=== PATIENT | female | born 1930 | race Caucasian/White ===

== ENCOUNTER 2016-11-22 11:17 | Emergency (ER) | payer BC ==
[~2016-11-22] VITALS: Ht 157.5 cm; Wt 57.7 kg
[~2016-11-22 11:17] MED LIST: ALLO100T PO; AMIO200T PO; AMLO10TA2 PO; APIX2.5T PO; ASPI81TA11 PO; CARV6.252 PO; COLC1TAB15 PO; ENAL20TA PO; HYDR-3133 PO; IBUP400T20 PO; ISOS30TA3 PO; LEVO25TA4 PO; OXYC-433 PO; PRAV80TA2 PO
[2016-11-22 11:24] VITALS: BP 118/70; PULSE 67; RESP 16; TEMP 97.8; O2SAT 96
--- NOTE | 2016-11-22 12:05 | PD ---
HPI Chief Complaint: GI Complaint Time Seen by Provider: 11:30 Travel History International Travel<30 days: No Contact w/Intl Traveler<30days: No Traveled to known affect area: No History of Present Illness HPI This patient is brought in by her daughter. She has diarrhea for 48 hours. It started a day after she started taking colchicine for gout flare. No vomiting but does have some nausea on occasion. Denies fever or abdominal pain. No ill contacts. Symptoms severity is moderate. No alleviating factors PFSH Past Medical History Hx Anticoagulant Therapy: Yes (ELIQUIS AND BABY ASA) Arthritis: Yes (Bilateral hands ) Asthma: No Autoimmune Disease: No Anxiety: No Depression: No Heart Rhythm Problems: No Cancer: No Cardiovascular Problems: Yes (ND, HTN, CHO) High Cholesterol: Yes Chest Pain: Yes Congestive Heart Failure: No Cerebrovascular Accident: No Diabetes: No Diminished Hearing: Yes (LEFT HEARING AIDE) Endocrine: Yes Gastrointestinal Disorders: Yes GERD: No Genitourinary: No Headaches: Yes Hiatal Hernia: No Hypertension: Yes Immune Disorder: No Implanted Vascular Access Dvce: Yes Musculoskeletal: Yes Neurologic: Yes Psychiatric: No Reproductive: No Respiratory: Yes Migraines: No Seizures: No Sleep Apnea: No Thyroid Disease: Yes Ulcer: No ?: Not Menopausal: Yes Past Surgical History Abdominal Surgery: Yes (POLYPS REMOVED) AICD: No Appendectomy: Yes Cardiac Surgery: Yes (ABLASION) Cholecystectomy: Yes Hysterectomy: Yes Insulin Pump: No Joint Replacement: No Oral Surgery: Yes (dental implants ) Pacemaker: No Thoracic Surgery: No Other Surgery: Yes (BACK SURGERY 2003) Social History Alcohol Use: Yes (WINE OCCAS.) Tobacco Use: No Substance Use: No Allergies-Medications (Allergen,Severity, Reaction): Coded Allergies: Horse Serum Proteins (Verified Allergy, Severe, HIVES, 11/22/16) Reported Meds & Prescriptions Reported Meds & Active Scripts Active Ibuprofen 400 Mg Tab 400 Mg PO Q8H PRN Reported Isosorbide Mononitrate ER (Isosorbide Mononitrate) 30 Mg Dio 30 Mg PO DAILY Oxycodone-Acetaminophen 10-325 mg Tab 1 Tab PO Q6H PRN Colchicine 0.6 Mg Tab 0.6 Mg PO DIRECTED Eliquis (Apixaban) 2.5 Mg Tab 2.5 Mg PO BID Pravastatin 80 Mg Tab 80 Mg PO DAILY Levothyroxine (Levothyroxine Sodium) 25 Mcg Tab 25 Mcg PO DAILY Hydroxyzine HCl 25 Mg Tab 25 Mg PO Q4HR Enalapril (Enalapril Maleate) 20 Mg Tab 20 Mg PO BID Carvedilol 6.25 Mg Tab 6.25 Mg PO BID Aspirin EC (Aspirin) 81 Mg Tabdr 81 Mg PO DAILY Amlodipine (Amlodipine Besylate) 10 Mg Tab 10 Mg PO DAILY Amiodarone (Amiodarone HCl) 200 Mg Tab 200 Mg PO DAILY Allopurinol 100 Mg Tab 100 Mg PO BID Review of Systems General / Constitutional: No: Fever Eyes: No: Visual changes HENT: No: Headaches Cardiovascular: No: Chest Pain or Discomfort Respiratory: No: Shortness of Breath Gastrointestinal: Positive: Nausea, Diarrhea, No: Abdominal Pain Genitourinary: No: Dysuria Musculoskeletal: Positive: Pain Skin: No Rash Neurologic: No: Weakness Psychiatric: No: Depression Endocrine: No: Polydipsia Hematologic/Lymphatic: No: Easy Bruising Physical Exam Narrative GENERAL: Well-nourished, well-developed patient in no apparent distress. SKIN: Warm and dry. HEAD: Atraumatic. Normocephalic. EYES: Pupils equal and round. No scleral icterus. No injection or drainage. ENT: No nasal bleeding or discharge. Mucous membranes pink and moist. NECK: Trachea midline. No JVD. CARDIOVASCULAR: Regular rate and rhythm. No murmur appreciated. RESPIRATORY: No accessory muscle use. Clear to auscultation. Breath sounds equal bilaterally. GASTROINTESTINAL: Abdomen soft, non-tender, nondistended. Hepatic and splenic margins not palpable. MUSCULOSKELETAL: No obvious deformities. No clubbing. No cyanosis. No edema. Has some inflammation of the left MTP joint NEUROLOGICAL: Awake and alert. No obvious cranial nerve deficits. Motor grossly within normal limits. Normal speech. PSYCHIATRIC: Appropriate mood and affect; insight and judgment normal. Data Data Last Documented VS Vital Signs Date Time Temp Pulse Resp B/P Pulse Ox O2 Delivery O2 Flow Rate FiO2 11/22/16 11:24 97.8 67 16 118/70 96 MDM Medical Decision Making Medical Screen Exam Complete: Yes Emergency Medical Condition: Yes Medical Record Reviewed: Yes Differential Diagnosis Medication side effect, gastroenteritis, food poisoning Narrative Course I have reviewed the patient's electronic medical record. Seems fairly suspicious that soon after starting colchicine she has developed diarrhea which is a well-known and common side effect of that medication She stopped taking it last night Her abdomen is soft and benign and nontender and she has normal vital signs and appears euvolemic on exam I don't think studies would be helpful here Discussed options with patient and daughter at bedside Other causes such as gastroenteritis and food poisoning should resolve spontaneously I gave her medication for nausea She has follow-up with her primary care physician in 3 days set up The diarrhea persists until that time he should discuss further workup with the physician but I suspect it will most likely resolve spontaneously Diagnosis Primary Impression: Diarrhea due to drug Additional Impression: Nausea Patient Instructions: General Instructions Departure Forms: Tests/Procedures Additional Instructions: The patient was advised to follow up with their physician and return if they worsen. Med/Other Pt SpecificInfo: Prescription(s) given Disposition: 01 DISCHARGE HOME Condition: Stable Gamaliel Whittaker MD Nov 22, 2016 12:05
[2016-11-22] MEDS ORDERED: ZOFR4TAB3 SL (12:09)
== END 2016-11-22 12:15 | disposition home or self-care (01) ==
LOC: PHED 11:17
DX: K52.1 Toxic gastroenteritis and colitis (principal); T50.4X5A Adverse effect of drugs affecting uric acid metabolism, initial encounter; M10.9 Gout, unspecified; I25.2 Old myocardial infarction; I10 Essential (primary) hypertension; E07.9 Disorder of thyroid, unspecified; Z79.01 Long term (current) use of anticoagulants
CPT/HCPCS: 99283

== ENCOUNTER 2017-08-20 10:47 | Observation (INO) | payer OTHER, BC ==
[~2017-08-20] VITALS: Ht 157.5 cm; Wt 62.0 kg
[~2017-08-20 10:47] MED LIST changes: -ASPI81TA11 PO; +ASPI81TA23 PO; +IBUP1TAB5 PO; -IBUP400T20 PO; +ZOFR4TAB3 SL
[2017-08-20 10:56] VITALS: BP 172/81; PULSE 55; RESP 16; TEMP 98; O2SAT 95
[2017-08-20] MEDS ORDERED: NITR0.4S SL (11:15)
[2017-08-20] MEDS ORDERED: HYDR12.57 PO (11:15)
[2017-08-20] MEDS ORDERED: AMLO5TAB2 PO (11:15)
[2017-08-20] MEDS ORDERED: LEVO50TA4 PO (11:15)
[2017-08-20] MEDS ORDERED: SODIUM CHLORIDE 0.9% FLUSH 10 ML FLUSH IVF PRN (11:30)
[2017-08-20 11:40] VITALS: RESP 16; O2SAT 98
[2017-08-20 11:40] LABS: AUTOMATED NEUTROPHIL # 11.6 TH/MM3 (1.8-7.7); BASOPHIL # 0.2 TH/MM3 (0-0.2); BASOPHIL % 1.4 % (0.0-2.0); EOSINOPHIL # 0.7 TH/MM3 (0-0.4); EOSINOPHIL % 4.4 % (0.0-4.0); HEMO FLAGS DIFF FINAL; LYMPH % 10.4 % (9.0-44.0); LYMPHOCYTE # 1.6 TH/MM3 (1.0-4.8); MEAN CELL VOLUME 90.5 FL (80.0-100.0); MEAN CORPUSCULAR HEMOGLOBIN 29.9 PG (27.0-34.0); MONO % 7.6 % (0.0-8.0); NEUT % 76.2 % (16.0-70.0); PLATELET COUNT 563 TH/MM3 (150-450); RED BLOOD COUNT 4.31 MIL/MM3 (4.00-5.30); RED CELL DISTRIBUTION WIDTH 16.4 % (11.6-17.2); WHITE BLOOD COUNT 15.2 TH/MM3 (4.0-11.0)
[2017-08-20 11:47] LABS: INTERNATIONAL NORMALIZED RATIO 1.1 RATIO
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
[2017-08-20 11:58] LABS: CREATINE KINASE 257 U/L (26-192)
[2017-08-20 12:10] LABS: CKMB 3.4 NG/ML (0.5-3.6)
[2017-08-20 12:11] LABS: ANION GAP 10 MEQ/L (5-15); BICARBONATE 23.6 MEQ/L (21.0-32.0); BLOOD UREA NITROGEN 24 MG/DL (7-18); CHLORIDE 102 MEQ/L (98-107); GLOMERULAR FILTRATION RATE 53 ML/MIN (>89); POTASSIUM 4.5 MEQ/L (3.5-5.1); SODIUM (NA) 136 MEQ/L (136-145)
[2017-08-20 12:58] LABS: BLOOD, URINE NEG (NEG); COMMENT (UR) CATH-CULT NOT IND; CULTURE IF INDICATED CATH CULTURE NOT IND; GLUCOSE,URINE NEG (NEG); KETONE, URINE NEG (NEG); MUCUS URINE FEW /lpf (OCC); NITRITE,URINE NEG (NEG); SQUAMOUS EPITHELIAL CELL URINE <1 /hpf (0-5); URINE COLOR LIGHT-YELLOW (YELLW/STRAW)
[2017-08-20 13:18] VITALS: BP 156/72; PULSE 59; RESP 15; O2SAT 98
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
[2017-08-20] MEDS ORDERED: GADODIAMIDE PF 287 MG/ML 20 ML VIAL (for RAD MRI) IVCONTRAST ONE (13:45)
[2017-08-20] MEDS ORDERED: SODIUM CHLORIDE 0.9% FLUSH 10 ML FLUSH IV FLUSH PRN (14:00)
[2017-08-20 15:00] VITALS: PULSE 63
[2017-08-20 15:52] VITALS: BP 151/69; PULSE 64; RESP 20; TEMP 98.1; O2SAT 92
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
[2017-08-20] MEDS ORDERED: ONDANSETRON ODT 4 MG TAB SL PRN ×2 (17:15→17:45)
[2017-08-20 19:57] VITALS: BP 140/64; PULSE 64; RESP 20; TEMP 98; O2SAT 95
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
[2017-08-20] MEDS: CARVEDILOL 6.25 MG TAB PO SCH (20:49)
[2017-08-20] MEDS: ALLOPURINOL 100 MG TAB PO SCH (20:49)
[2017-08-20] MEDS: SODIUM CHLORIDE 0.9% FLUSH 10 ML FLUSH IV FLUSH SCH (20:49)
[2017-08-20] MEDS: ENALAPRIL MALEATE 10 MG TAB PO SCH (20:49)
[2017-08-20] MEDS: APIXABAN 2.5 MG TABLET PO SCH (20:49)
[2017-08-20 20:57] LABS: FREE T4 1.23 NG/DL (0.76-1.46)
[2017-08-21] VITALS (9 sets, daily range): BP systolic 119–152; BP diastolic 58–75; PULSE 53–82; RESP 17–20; TEMP 97.9–98.1; O2SAT 60–96
[2017-08-21] MEDS: LEVOTHYROXINE SODIUM 50 MCG TAB PO SCH (04:56)
--- NOTE | 2017-08-21 08:04 | HHI.PR ---
Subjective Remarks sr 1deg hb Objective Vital Signs Date Time Temp Pulse Resp B/P (MAP) Pulse Ox O2 Delivery O2 Flow Rate FiO2 08/21/17 04:00 98.1 63 20 145/63 (90) 94 08/20/17 19:57 98.0 64 20 140/64 (89) 95 08/20/17 15:52 98.1 64 20 151/69 (96) 92 08/20/17 15:00 63 08/20/17 13:18 59 15 156/72 (100) 98 Room Air 08/20/17 11:40 16 98 Room Air 08/20/17 11:03 94 Room Air 08/20/17 10:56 98.0 55 16 172/81 (111) 95 Result Diagram: 08/20/17 1121 08/20/17 1121 Objective Remarks awake alert no new c/o no new spells vff face sym 5/5 Assessment and Plan Assessment and Plan imp likley non neurological if eeg done and mri/a neg and standing bp ok and cards clears could dc later today i will fu eeg result William Timmons MD Aug 21, 2017 08:04
--- NOTE | 2017-08-21 08:15 | HHI.PR ---
Subjective Remarks Alert and oriented no further episodes of dizziness or syncope Objective Vital Signs Date Time Temp Pulse Resp B/P (MAP) Pulse Ox O2 Delivery O2 Flow Rate FiO2 08/21/17 04:00 98.1 63 20 145/63 (90) 94 08/20/17 19:57 98.0 64 20 140/64 (89) 95 08/20/17 15:52 98.1 64 20 151/69 (96) 92 08/20/17 15:00 63 08/20/17 13:18 59 15 156/72 (100) 98 Room Air 08/20/17 11:40 16 98 Room Air 08/20/17 11:03 94 Room Air 08/20/17 10:56 98.0 55 16 172/81 (111) 95 Result Diagram: 08/20/17 1121 08/20/17 1121 Imaging Last [address] 08/20/17 111 Signed Impressions: Service Date/Time: July 12:50 - CONCLUSION: 1. No acute disease. 2. Atrophy and chronic small vessel ischemic change. James Garcia Jr., MD Chest X-Ray 08/20/17 1117 Signed Impressions: Service Date/Time: July 11:25 - CONCLUSION: No acute disease. James Garcia Jr., MD Objective Remarks GENERAL: Alert and cooperative SKIN: Warm and dry. HEAD: Normocephalic. EYES: No scleral icterus. No injection or drainage. NECK: Supple, trachea midline. No JVD or lymphadenopathy. CARDIOVASCULAR: Regular rate and rhythm without murmurs, gallops, or rubs. RESPIRATORY: Breath sounds equal bilaterally. No accessory muscle use. GASTROINTESTINAL: Abdomen soft, non-tender, nondistended. MUSCULOSKELETAL: No cyanosis, or edema. BACK: Nontender without obvious deformity. No CVA tenderness. Medications and IVs Current Medications Medications (Trade) Dose Ordered Sig/Kalpana Route Start Time Stop Time Status Last Admin (NS Flush) 2 ml UNSCH PRN IV FLUSH 08/20/17 14:00 (NS Flush) 2 ml BID IV FLUSH 08/20/17 21:00 08/20/17 20:49 (Zyloprim) 100 mg BID PO 08/20/17 21:00 08/20/17 20:49 (Cordarone) 200 mg DAILY PO 08/21/17 09:00 (Norvasc) 5 mg DAILY PO 08/21/17 09:00 (Eliquis) 2.5 mg BID PO 08/20/17 21:00 08/20/17 20:49 (Ecotrin Ec) 81 mg DAILY PO 08/21/17 09:00 (Coreg) 6.25 mg BID PO 08/20/17 21:00 08/20/17 20:49 (Vasotec) 20 mg BID PO 08/20/17 21:00 08/20/17 20:49 (Microzide) 12.5 mg DAILY PO 08/21/17 09:00 (Imdur) 30 mg DAILY PO 08/21/17 09:00 (Synthroid) 50 mcg DAILY@0600 PO 08/21/17 06:00 08/21/17 04:56 (Zofran Odt) 4 mg Q6HR PRN SL 08/20/17 17:45 (Pravachol) 80 mg DAILY PO 08/21/17 09:00 Assessment and Plan Problem List: (1) Syncope ICD Codes: R55 - Syncope and collapse Status: Acute (2) Hypertension ICD Codes: I10 - Essential (primary) hypertension Status: Acute (3) A-fib ICD Codes: I48.91 - Unspecified atrial fibrillation Status: Acute (4) Hypothyroid ICD Codes: E03.9 - Hypothyroidism, unspecified Status: Acute (5) Leukocytosis ICD Codes: D72.829 - Elevated white blood cell count, unspecified Status: Acute (6) Hyperlipidemia ICD Codes: E78.5 - Hyperlipidemia, unspecified Status: Acute Assessment and Plan 08/21/17\ Syncope: no further episodes of syncope noted. Telemetry on. Cardilolgy and neurology consulted. MRI and EEG per neurology. HTN: Home medication resumed. 145/63 HLD: continue statin Hypothyroidism: Increased levothyroxine replacement. TSH is elevated at 5.38 Leukocytosis: Labs are pending this morning. Yesterday 15.2. AFIB; Continue eliquis and amiodarone. Rate controlled. I and the EXCELLENCE COACH have both examined this patient and reviewed this note and I agree with these findings and plan of care. Darron Muller DO Discussed Condition With Nursing Discharge Planning Home with [facility] Problem Qualifiers (1) Syncope: Qualified Codes: R55 - Syncope and collapse (2) A-fib: Qualified Codes: I48.2 - Chronic atrial fibrillation Jaimie Vargas Aug 21, 2017 08:15
[2017-08-21] MEDS ORDERED: ISOSORBIDE MONONITRATE 30 MG TAB PO SCH (09:00)
[2017-08-21] MEDS ORDERED: LEVOTHYROXINE SODIUM 50 MCG TAB PO SCH (09:00)
[2017-08-21] MEDS ORDERED: HYDROCHLOROTHIAZIDE 12.5 MG CAP PO SCH ×2 (09:00)
[2017-08-21] MEDS: ISOSORBIDE MONONITRATE 30 MG TAB PO SCH (09:00)
[2017-08-21] MEDS ORDERED: PRAVASTATIN SOD 80 MG TAB PO SCH (09:00)
[2017-08-21] MEDS: SODIUM CHLORIDE 0.9% FLUSH 10 ML FLUSH IV FLUSH SCH ×2 (09:00→21:00)
[2017-08-21] MEDS: CARVEDILOL 6.25 MG TAB PO SCH (09:00)
[2017-08-21] MEDS: AMIODARONE 200 MG TAB PO SCH (09:38)
[2017-08-21] MEDS: ALLOPURINOL 100 MG TAB PO SCH ×2 (09:38→21:20)
[2017-08-21] MEDS: PRAVASTATIN SOD 80 MG TAB PO SCH (09:38)
[2017-08-21] MEDS: APIXABAN 2.5 MG TABLET PO SCH ×2 (09:41→21:19)
[2017-08-21] MEDS: ASPIRIN EC 81 MG TABEC PO SCH (09:41)
[2017-08-21] MEDS: amLODIPine BESYLATE 5 MG TAB PO SCH (09:42)
[2017-08-21] MEDS: ENALAPRIL MALEATE 10 MG TAB PO SCH ×2 (09:44→21:20)
--- NOTE | 2017-08-21 09:47 | RADRPT ---
EXAM DATE/TIME: 08/21/2017 08:48 [facility] COMPARISON: No previous studies available for comparison. INDICATIONS : Syncope CONTRAST: 20 cc Omniscan (gadodiamide) IV MEDICAL HISTORY : Hypertension. Cardiovascular disease Hypercholesterolemia. SURGICAL HISTORY : Orthopaedic. ENCOUNTER: Initial ACUITY: 1 day PAIN SCORE: 0/10 LOCATION: neck Percent stenosis is calculated using the diameter of the stenotic region over the diameter of the nor mal distal internal carotid artery. TECHNIQUE: Bolus infused MRA of the extracranial circulation was performed using a neurovascular coil. Post pro cessing was performed including rotating subvolume maximum intensity projections of each carotid bryan ry, rotating full volume maximum intensity projections of both carotid arteries, sagittal and coronal sliding thin slab reformations of each carotid artery, and left oblique sliding thin slab reformatio n through the aortic arch to include the origin of the arch branch vessels. FINDINGS: AORTIC ARCH: There is a three vessel origin of the great vessels from the aorta. No evidence of ostial narrowing. RIGHT CAROTID: There is eccentric stenosis involving the origin of the right internal carotid artery with 50-60% misty notic narrowing associated. Beyond this proximal disease, the ICA regains normal caliber and appearan ce it is widely patent to the skull base. LEFT CAROTID: The common carotid artery is intact. The carotid bulb has a normal configuration without ulceration or narrowing. The internal carotid artery lumen is smooth without stenosis. The external carotid ar denae is intact. VERTEBRALS: The vertebral arteries have a symmetric diameter. No stenotic lesions are seen. CONCLUSION: 50-60% right carotid bifurcation stenosis. Scot Brown MD on August 21, 2017 at 9:40 Board Certified Radiologist. This report was verified electronically.
--- NOTE | 2017-08-21 09:55 | RADRPT ---
EXAM DATE/TIME: 08/21/2017 08:48 [facility] COMPARISON: CT BRAIN W/O CONTRAST, August 20, 2017, 12:50. INDICATIONS : Syncope. CONTRAST: 20 cc Omniscan (gadodiamide) IV MEDICAL HISTORY : Hypertension. Cardiovascular disease Hypercholesterolemia. SURGICAL HISTORY : Orthopaedic. ENCOUNTER: Initial ACUITY: 1 day PAIN SCORE: 0/10 LOCATION: distal TECHNIQUE: Multiplanar, multisequence MRI of the brain was performed both prior to and following the administrat ion of paramagnetic contrast. FINDINGS: CEREBRUM: The ventricles are normal for age. No evidence of midline shift, mass lesion, hemorrhage or acute in farction. No extraaxial fluid collections are seen. The pituitary gland and suprasellar cistern are normal in configuration. WHITE MATTER: Scattered areas of benign-appearing white matter signal alteration POSTERIOR FOSSA: The cerebellum and brainstem are intact. The 4th ventricle is midline. The cerebellopontine angle is unremarkable. The cerebellar tonsils are normal in position. DIFFUSION IMAGING: No focal areas of restricted diffusion are seen. No evidence of acute infarction. EXTRACRANIAL: The visualized portions of the orbits and paranasal sinuses are unremarkable. POST-CONTRAST: No abnormal areas of parenchymal or dural enhancement. No evidence of blood-brain barrier breakdown. CONCLUSION: No acute intracranial findings Scot Brown MD on August 21, 2017 at 9:49 Board Certified Radiologist. This report was verified electronically.
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
--- NOTE | 2017-08-21 12:26 | RADRPT ---
EXAM DATE/TIME: 08/21/2017 10:57 [facility] COMPARISON: No previous studies available for comparison. INDICATIONS : Syncope. MEDICAL HISTORY : Myocardial infarction. Hypercholesterolemia. Arthritis. Syncope. Chest pain. HTN. Osteoporosis. Anti coagulant therapy, Eliquis. SURGICAL HISTORY : Cholecystectomy. Appendectomy. Hysterectomy. Dental implants. Cardiac ablasion. Polyps removed. Bilat eral carpel tunnel release. Blood transfusions. Back surgery. ENCOUNTER: Initial ACUITY: 1 day PAIN SCORE: 0/10 LOCATION: Bilateral neck PEAK SYSTOLIC VELOCITIES (cm/sec): ICA/CCA RATIO: Right: 2.4 Left: 1.7 ICA: Right: 153.0 Left: 114.0 CCA: Right: 62.5 Left: 67.7 ECA: Right: 77.6 Left: 55.7 VERTEBRAL: Right: N/A antegrade Left: 42.7 antegrade Elevated flow velocities and ICA/CCA ratios have been found to correlate with increased degrees of vessel stenosis, calculated as percentage of diameter relative to a normal segment of distal ICA/CCA FINDINGS: RIGHT CAROTID: There is elevated velocities and ratios suggesting borderline significant stenosis on the right. LEFT CAROTID: No significant stenosis is visualized. Moderate calcific vascular disease is evident. The waveforms are within normal limits. VERTEBRAL ARTERIES: Antegrade flow is seen in both vertebral arteries. MISCELLANEOUS: None. CONCLUSION: Borderline significant stenosis on the right. Confirmation with MR angiography or CT angiography suggested. Shawn Tillman MD FACR on August 21, 2017 at 12:23 Board Certified Radiologist. This report was verified electronically.
--- NOTE | 2017-08-21 16:48 | EKG ---
Date Performed: 08/20/2017 Time Performed: 11:18:29 PTAGE: 87 years EKG: SINUS BRADYCARDIA WITH FIRST DEGREE AV BLOCK LEFT ANTERIOR FASCICULAR BLOCK MINIMAL ST DEPR ESSION Since previous tracing, no significant change noted ABNORMAL ECG PREVIOUS TRACING : 07/01/2016 14.34 DOCTOR: Jenn Pena Interpretating Date/Time 08/21/2017 16:46:45
--- NOTE | 2017-08-21 22:30 | MG ---
cc: CRISTINA HERRMANN MD Lab No: [id number] Date: 08/21/17 Age: 77 Sex: F Race: 1930 History of syncopal episode. 6-8 Hz posterior rhythm, 10-40 microvolts. Theta beta frequency at the frontal channel, a lot of frontal myogenic artifact occurring throughout most of the recording. Good EEG variability reactivity. Good driving with photic stimulation. No obvious lateralizing features. Single lead EKG showing sinus rhythm. INTERPRETATION Normal awake EEG. MD FLAKITO Sewell/ /9:57 PM /10:18 PM
[2017-08-22 03:09] VITALS: BP 132/64; PULSE 58; RESP 17; TEMP 97.9; O2SAT 93
[2017-08-22] MEDS: LEVOTHYROXINE SODIUM 50 MCG TAB PO SCH (06:14)
[2017-08-22 07:26] VITALS: PULSE 58
[2017-08-22 07:38] VITALS: BP 152/70; PULSE 60; RESP 21; TEMP 96.1; O2SAT 92
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
[2017-08-22] MEDS: ALLOPURINOL 100 MG TAB PO SCH (08:41)
[2017-08-22] MEDS: ISOSORBIDE MONONITRATE 30 MG TAB PO SCH (08:41)
[2017-08-22] MEDS: PRAVASTATIN SOD 80 MG TAB PO SCH (08:41)
[2017-08-22] MEDS: amLODIPine BESYLATE 5 MG TAB PO SCH (08:42)
[2017-08-22] MEDS: ASPIRIN EC 81 MG TABEC PO SCH (08:42)
[2017-08-22] MEDS: APIXABAN 2.5 MG TABLET PO SCH (08:42)
[2017-08-22] MEDS: SODIUM CHLORIDE 0.9% FLUSH 10 ML FLUSH IV FLUSH SCH (08:42)
[2017-08-22] MEDS: AMIODARONE 200 MG TAB PO SCH (08:42)
[2017-08-22] MEDS ORDERED: ENALAPRIL MALEATE 10 MG TAB PO SCH ×2 (09:00)
[2017-08-22 10:59] VITALS: BP 128/60; PULSE 62; RESP 20; TEMP 96.1; O2SAT 94
--- NOTE | 2017-08-22 11:08 | HHI.PR ---
Review/Management Diagnosis/Plan: (1) Syncope ICD Codes: R55 - Syncope and collapse Status: Acute Plan: MRI unremarkable MRA shows 50-60% stenosis at right carotid bifurcation EEG WNL event likely non neurological and more likely related to cardiac hx will follow with cardiology regarding carotid stenosis (Qi Menjivar) Daily Summary d/w PA. agree with plan. pt has been dc'd. mild rt carotid stenosis, unlikely cause of symptoms. f/u with Dr. Lemus in office in 1-2 weeks (Damien Florian MD) Subjective Subjective Comments No acute events reported No headache No chest pain No dyspnea no dizziness or syncopal episodes Active Medications Current Medications Medications (Trade) Dose Ordered Sig/Kalpana Route Start Time Stop Time Status Last Admin (NS Flush) 2 ml UNSCH PRN IV FLUSH 08/20/17 14:00 (NS Flush) 2 ml BID IV FLUSH 08/20/17 21:00 08/22/17 08:42 (Zyloprim) 100 mg BID PO 08/20/17 21:00 08/22/17 08:41 (Cordarone) 200 mg DAILY PO 08/21/17 09:00 Future hold 08/22/17 08:42 (Norvasc) 5 mg DAILY PO 08/21/17 09:00 08/22/17 08:42 (Eliquis) 2.5 mg BID PO 08/20/17 21:00 08/22/17 08:42 (Ecotrin Ec) 81 mg DAILY PO 08/21/17 09:00 08/22/17 08:42 (Coreg) 6.25 mg BID PO 08/20/17 21:00 Future Hold 08/20/17 20:49 (Microzide) 12.5 mg DAILY PO 08/21/17 09:00 Future Hold (Imdur) 30 mg DAILY PO 08/21/17 09:00 08/22/17 08:41 (Synthroid) 50 mcg DAILY@0600 PO 08/21/17 06:00 08/22/17 06:14 (Zofran Odt) 4 mg Q6HR PRN SL 08/20/17 17:45 (Pravachol) 80 mg DAILY PO 08/21/17 09:00 08/22/17 08:41 (Vasotec) 10 mg BID PO 08/22/17 09:00 08/22/17 08:41 Allergies Allergies Coded Allergies Horse/Equine Containing Products (Unverified Allergy, Severe, HIVES, 08/20/17) (Qi Menjivar) Review of Systems All other ROS: ROS reviewed as documented in chart (Qi Menjivar) Exam I&O / VS Vital Signs Date Time Temp Pulse Resp B/P (MAP) Pulse Ox O2 Delivery O2 Flow Rate FiO2 08/22/17 07:38 96.1 60 21 152/70 (97) 92 08/22/17 03:09 97.9 58 17 132/64 (86) 93 08/21/17 23:27 98.0 60 17 138/65 (89) 93 08/21/17 23:00 54 08/21/17 19:34 97.9 62 17 119/58 (78) 95 132/61 (84) 128/61 (83) 08/21/17 16:47 97.9 18 148/67 (94) 96 08/21/17 15:00 62 08/21/17 12:20 97.9 68 143/65 (91) 60 General: Alert and Oriented, No acute distress Eye: PERRL, EOMI Respiratory: Non-labored respirations Neurologic: Alert, Oriented, No focal defects, CN II-XII intact Psychiatric: Cooperative, Appropriate mood & affect Exam Comments decreased ROM of right shoulder related to pain (Qi Menjivar) Objective Radiology Results Last 48 hours Impressions Neck Magnetic Resonance Angiography 08/21/171918 Signed Impressions: Service Date/Time: Monday, August 21, 2017 08:48 - CONCLUSION: 50-60%% right carotid bifurcation stenosis. Scot Brown MD Brain MRI 08/21/171918 Signed Impressions: Service Date/Time: Monday, August 21, 2017 08:48 - CONCLUSION: No acute intracranial findings Scot Brown MD Carotid Artery Ultrasound 08/21/17 0000 Signed Impressions: Service Date/Time: Monday, August 21, 2017 10:57 - CONCLUSION: Borderline significant stenosis on the right. Confirmation with MR angiography or CT angiography suggested. Shawn Tillman MD FACR Head CT 08/20/17 1117 Signed Impressions: Service Date/Time: July 12:50 - CONCLUSION: 1. No acute disease. 2. Atrophy and chronic small vessel ischemic change. James Garcia Jr., MD Chest X-Ray 08/20/17 1117 Signed Impressions: Service Date/Time: July 11:25 - CONCLUSION: No acute disease. James Garcia Jr., MD Diagnostic Tests EEG- normal (Qi Menjivar) Problem Qualifiers (1) Syncope: Qualified Codes: R55 - Syncope and collapse Qi Menjivar Aug 22, 2017 11:08 Damien Florian MD Aug 22, 2017 13:41
== END 2017-08-22 13:18 | disposition home or self-care (01) ==
LOC: NEPE 10:47 → NEDA 13:44 → NEPFCDU 15:28 → UNDODISOB 17:36
PROVIDERS: ADMIT Family Medicine; ATTEND Family Medicine
DX: R55 Syncope and collapse (principal); I10 Essential (primary) hypertension; I48.2 Chronic atrial fibrillation; I44.0 Atrioventricular block, first degree; R00.1 Bradycardia, unspecified; I44.4 Left anterior fascicular block; R42 Dizziness and giddiness; I65.21 Occlusion and stenosis of right carotid artery; R06.02 Shortness of breath; R51 Headache; I25.10 Atherosclerotic heart disease of native coronary artery without angina pectoris; E78.00 Pure hypercholesterolemia, unspecified; E11.9 Type 2 diabetes mellitus without complications; R94.31 Abnormal electrocardiogram [ECG] [EKG]; E03.9 Hypothyroidism, unspecified; D72.829 Elevated white blood cell count, unspecified; I25.2 Old myocardial infarction; H91.90 Unspecified hearing loss, unspecified ear; M19.042 Primary osteoarthritis, left hand; M19.041 Primary osteoarthritis, right hand; Z79.899 Other long term (current) drug therapy; Z79.82 Long term (current) use of aspirin; Z79.01 Long term (current) use of anticoagulants; V47.0XXA Car driver injured in collision with fixed or stationary object in nontraffic accident, initial encounter; Y92.410 Unspecified street and highway as the place of occurrence of the external cause
CPT/HCPCS: 70450; 70548; 70553; 71010; 80048; 81001; 82550; 82552; 82607; 84439; 84443; 84484; 85025; 85610; 85652; 93005; 93880; 95819; 99285; A9579; G0378

== ENCOUNTER 2017-09-30 11:56 | Day surgery (SDC) | payer BC ==
[~2017-09-30 11:56] MED LIST changes: -AMLO10TA2 PO; +AMLO5TAB2 PO; -COLC1TAB15 PO; -ENAL20TA PO; -HYDR-3133 PO; +HYDR12.57 PO; -IBUP1TAB5 PO; -LEVO25TA4 PO; +LEVO50TA4 PO; +NITR0.4S SL; -OXYC-433 PO
[2017-09-30] MEDS ORDERED: MULTTAB67 PO (12:44)
[2017-09-30] MEDS ORDERED: CHOL10008 PO (12:44)
[2017-09-30] MEDS ORDERED: ENAL20TA PO (12:44)
[2017-09-30] MEDS ORDERED: ceFAZolin 2 GM PREMIX 50 ML IV SCH (12:45)
[2017-09-30] MEDS ORDERED: MUPIROCIN 2% OINT 1 APPLIC/GM SYR NASAL SCH (12:45)
[2017-09-30] MEDS ORDERED: CHLORHEXIDINE GLUCONATE 2 % 1 PACK (2 CLOTHS) TOPICAL SCH (12:45)
[2017-09-30] MEDS ORDERED: POVIDONE IODINE 5% (ANTISEPSIS KIT) 4 APPLICATIONS EACH NARE SCH (12:45)
[2017-09-30] MEDS ORDERED: NS 1000 ML IV SCH (13:00)
[2017-09-30] MEDS ORDERED: MIDAZOLAM HCL 5 MG/ML VIAL (1 ML) ONE ×2 (13:51→13:55)
[2017-09-30] MEDS ORDERED: MIDAZOLAM HCL 2 MG/2 ML VIAL IV PUSH ONE (15:00)
--- NOTE | 2017-10-01 07:24 | MR ---
cc: [facility] DATE 09/30/2017 INDICATION Syncope PROCEDURE PERFORMED 1. Placement of Medtronic Reveal LINQ MRI compatible loop monitor, serial number [id number]. 2. Moderate sedation PROCEDURE After the patient was prepped and draped in the usual sterile manner, local anesthesia was applied. The Medtronic Reveal LINQ MRI compatible loop monitor was placed without difficulties. R-wave was 1.1 mV. MEDICATIONS 1. Versed IV 2. Fentanyl IV COMPLICATIONS None BLOOD LOSS Less than 10 cc. DIAGNOSIS Successful placement of Medtronic Reveal LINQ MRI compatible loop monitor. DISPOSITION This patient will be discharged home later today. I will see her back for a wound check in our office within two weeks. We will initiate long-term monitoring of her device. MD LEW Andrea/AYLIN /2:09 PM /7:08 AM IFTIKHAR
== END 2017-09-30 15:15 | disposition home or self-care (01) ==
LOC: HDOC 11:56 → HDIC 11:57 → HDOC 15:15
PROVIDERS: ATTEND Internal Medicine Interventional Cardiology
DX: R55 Syncope and collapse (principal); I48.2 Chronic atrial fibrillation; Z79.01 Long term (current) use of anticoagulants
CPT/HCPCS: 33282; 99152; C1764; J2250; J3010

== ENCOUNTER 2017-12-11 14:35 | Inpatient (IN) | payer MEDICARE, BC ==
[~2017-12-11] VITALS: Ht 157.5 cm; Wt 63.1 kg
[~2017-12-11 14:35] MED LIST changes: -ASPI81TA23 PO; -CARV6.252 PO; +CHOL10008 PO; +ENAL20TA PO; +MULTTAB67 PO
[2017-12-11 15:06] VITALS: BP 141/66; PULSE 67; RESP 18; TEMP 98.3; O2SAT 97
[2017-12-11 16:14] LABS: AUTOMATED NEUTROPHIL # 13.2 TH/MM3 (1.8-7.7); BASOPHIL # 0.2 TH/MM3 (0-0.2); BASOPHIL % 1.3 % (0.0-2.0); EOSINOPHIL # 0.5 TH/MM3 (0-0.4); EOSINOPHIL % 3.2 % (0.0-4.0); HEMATOCRIT 42.1 % (35.0-46.0); LYMPH % 11.6 % (9.0-44.0); MEAN CELL VOLUME 90.4 FL (80.0-100.0); MEAN CORPUSCULAR HGB CONC 33.1 % (32.0-36.0); MEAN PLATELET VOLUME 8.7 FL (7.0-11.0); MONO % 6.8 % (0.0-8.0); MONOCYTE # 1.2 TH/MM3 (0-0.9); NEUT % 77.1 % (16.0-70.0); PLATELET COUNT 588 TH/MM3 (150-450); RED BLOOD COUNT 4.66 MIL/MM3 (4.00-5.30); RED CELL DISTRIBUTION WIDTH 17.5 % (11.6-17.2); WHITE BLOOD COUNT 17.1 TH/MM3 (4.0-11.0)
[2017-12-11 16:51] LABS: ALBUMIN 3.6 GM/DL (3.4-5.0); ALT (GPT) 34 U/L (10-53); AST (GOT) 29 U/L (15-37); BICARBONATE 28.8 MEQ/L (21.0-32.0); BLOOD UREA NITROGEN 28 MG/DL (7-18); CHLORIDE 103 MEQ/L (98-107); CREATININE 1.17 MG/DL (0.50-1.00); GLOMERULAR FILTRATION RATE 44 ML/MIN (>89); GLUCOSE,RANDOM 103 MG/DL (74-106); SODIUM (NA) 140 MEQ/L (136-145)
[2017-12-11 16:52] LABS: ALKALINE PHOSPHATASE 114 U/L (45-117); TOTAL BILIRUBIN ADULT 0.2 MG/DL (0.2-1.0); TOTAL PROTEIN 7.3 GM/DL (6.4-8.2)
[2017-12-11 18:24] VITALS: BP 167/76; PULSE 66; RESP 15; O2SAT 95
--- NOTE | 2017-12-11 18:34 | PD ---
HPI Chief Complaint: Pain: Acute or Chronic Time Seen by Provider: 18:06 Travel History International Travel<30 days: No Contact w/Intl Traveler<30days: No Traveled to known affect area: No History of Present Illness HPI 87-year-old female with history of atrial fibrillation, gout presents emergency department the request of her manager people, Dr. Begum for evaluation of her left fourth toe. Says she hit her toe on a vacuum rope cleaner and several months ago and has been treated by the manager people since then. Says her pain is severe and 'cannot do it' anymore. States that she had an x-ray at [facility] [place] [facility] multiple times and there was evidence of delayed healing and possible infection. Patient states she has received antibiotics for this but has not helped with the pain or possible infectious process. Patient denies fever, chills, chest pain, shortness breath, abdominal pain, leg pain. PFSH Past Medical History Hx Anticoagulant Therapy: Yes Arthritis: Yes (Bilateral hands ) Asthma: No Autoimmune Disease: No Blood Disorders: No Anxiety: No Depression: No Heart Rhythm Problems: No Cancer: No Cardiovascular Problems: Yes (LOOP MONITOR) High Cholesterol: Yes Chemotherapy: No Chest Pain: Yes Congestive Heart Failure: No Cerebrovascular Accident: No Diabetes: No Diminished Hearing: Yes (LEFT HEARING AIDE) Endocrine: Yes Gastrointestinal Disorders: Yes GERD: No Genitourinary: No Headaches: Yes Hiatal Hernia: No Hypertension: Yes Immune Disorder: No Implanted Vascular Access Dvce: Yes Musculoskeletal: Yes Neurologic: Yes Psychiatric: No Reproductive: No Respiratory: Yes Migraines: No Radiation Therapy: No Seizures: No Sleep Apnea: No Thyroid Disease: Yes Ulcer: No Tetanus Vaccination: Unknown Influenza Vaccination: No ?: Not Menopausal: Yes Past Surgical History Abdominal Surgery: Yes (POLYPS REMOVED) AICD: No Appendectomy: Yes Body Medical Devices: Back surgery Cardiac Surgery: Yes (ABLASION) Cholecystectomy: Yes Hysterectomy: Yes Insulin Pump: No Joint Replacement: No Oral Surgery: Yes (dental implants ) Pacemaker: No Thoracic Surgery: No Other Surgery: Yes (BACK SURGERY 2003) Social History Alcohol Use: Yes (WINE OCCAS.) Tobacco Use: No Substance Use: No Allergies-Medications (Allergen,Severity, Reaction): Coded Allergies: Horse/Equine Containing Products (Unverified Allergy, Severe, HIVES, ) Reported Meds & Prescriptions Reported Meds & Active Scripts Active Zofran Odt (Ondansetron Odt) 4 Mg Tab 4 Mg SL Q6HR PRN Reported Vitamin D3 (Cholecalciferol) 1,000 Unit Cap 1,000 Units PO DAILY Multiple Vitamin 1 Tab 1 Tab PO DAILY Hydrochlorothiazide 12.5 Mg Cap 12.5 Mg PO DAILY Nitrostat SL (Nitroglycerin) 0.4 Mg Subl 0.4 Mg SL DIRECTED PRN 1 tablet under the tongue as needed for chest pain. Repeat every 5 minutes for a total of 3 DOSES or call 911 if NO relief. Levothyroxine (Levothyroxine Sodium) 50 Mcg Tab 50 Mcg PO DAILY Amlodipine (Amlodipine Besylate) 5 Mg Tab 5 Mg PO DAILY Isosorbide Mononitrate ER (Isosorbide Mononitrate) 30 Mg Dio 30 Mg PO DAILY Eliquis (Apixaban) 2.5 Mg Tab 2.5 Mg PO BID Pravastatin 80 Mg Tab 80 Mg PO DAILY Amiodarone (Amiodarone HCl) 200 Mg Tab 200 Mg PO DAILY Allopurinol 100 Mg Tab 100 Mg PO BID Review of Systems Except as stated in HPI: all other systems reviewed are Neg Physical Exam Narrative GENERAL: Well-developed, well-nourished in mild distress SKIN: Focused skin assessment warm/dry. HEAD: Atraumatic. Normocephalic. EYES: Pupils equal and round. No scleral icterus. No injection or drainage. ENT: No nasal bleeding or discharge. Mucous membranes pink and moist. NECK: Trachea midline. No JVD. CARDIOVASCULAR: Regular rate and rhythm. No murmur appreciated. RESPIRATORY: No accessory muscle use. Clear to auscultation. Breath sounds equal bilaterally. GASTROINTESTINAL: Abdomen soft, non-tender, nondistended. No CVA tenderness MUSCULOSKELETAL: No obvious deformities. No clubbing. No cyanosis. No edema. left foot-fourth toe, ecchymosis with tenderness palpation to the metatarsal region, NEUROLOGICAL: Awake and alert. No obvious cranial nerve deficits. Motor grossly within normal limits. Normal speech. PSYCHIATRIC: Appropriate mood and affect; insight and judgment normal. Data Data Last Documented VS Vital Signs Date Time Temp Pulse Resp B/P (MAP) Pulse Ox O2 Delivery O2 Flow Rate FiO2 12/11/17 22:30 62 16 155/83 (107) 96 Room Air 12/11/17 15:06 98.3 Orders Orders Complete Blood Count With Diff (12/11/17 15:10) Comprehensive Metabolic Panel (12/11/17 15:10) Lactic Acid Sepsis Protocol (12/11/17 15:10) Blood Culture (12/11/17 15:10) Cta Runoff W Iv Contrast W 3d (12/11/17 ) Oxycodone-Acetamin 5-325 Mg (Percocet (12/11/17 19:00) Iohexol 350 Inj (Omnipaque 350 Inj) (12/11/17 20:24) Morphine Inj (Morphine Inj) (12/11/17 22:30) Admit Order (Ed Use Only) (12/11/17 23:26) Labs Laboratory Tests Test 12/11/17 15:34 12/11/17 15:36 White Blood Count 17.1 TH/MM3 Red Blood Count 4.66 MIL/MM3 Hemoglobin 14.0 GM/DL Hematocrit 42.1 % Mean Corpuscular Volume 90.4 FL Mean Corpuscular Hemoglobin 30.0 PG Mean Corpuscular Hemoglobin Concent 33.1 % Red Cell Distribution Width 17.5 % Platelet Count 588 TH/MM3 Mean Platelet Volume 8.7 FL Neutrophils (%) (Auto) 77.1 % Lymphocytes (%) (Auto) 11.6 % Monocytes (%) (Auto) 6.8 % Eosinophils (%) (Auto) 3.2 % Basophils (%) (Auto) 1.3 % Neutrophils # (Auto) 13.2 TH/MM3 Lymphocytes # (Auto) 2.0 TH/MM3 Monocytes # (Auto) 1.2 TH/MM3 Eosinophils # (Auto) 0.5 TH/MM3 Basophils # (Auto) 0.2 TH/MM3 CBC Comment DIFF FINAL Differential Comment Blood Urea Nitrogen 28 MG/DL Creatinine 1.17 MG/DL Random Glucose 103 MG/DL Total Protein 7.3 GM/DL Albumin 3.6 GM/DL Calcium Level 9.0 MG/DL Alkaline Phosphatase 114 U/L Aspartate Amino Transf (AST/SGOT) 29 U/L Alanine Aminotransferase (ALT/SGPT) 34 U/L Total Bilirubin 0.2 MG/DL Sodium Level 140 MEQ/L Potassium Level 4.5 MEQ/L Chloride Level 103 MEQ/L Carbon Dioxide Level 28.8 MEQ/L Anion Gap 8 MEQ/L Estimat Glomerular Filtration Rate 44 ML/MIN Lactic Acid Level 1.1 mmol/L MDM Medical Decision Making Medical Screen Exam Complete: Yes Emergency Medical Condition: Yes Differential Diagnosis Osteomyelitis, peripheral artery disease, cellulitis, abscess Narrative Course 87-year-old female presents emergency department the request of her manager people, Dr. Begum with a prescription and request for specific treatment which includes a CT with runoff, admission to medicine, podiatry Dr Whitney consult with vascular surgery consult. Vital signs are stable. Review of the EMR PMHx of: Loop recorder placed in September [address] mclean for evaluation of frequent syncopal episodes a fib on Eliquis and amiodarone Hypertension HLD Hypothyroid Gout on allopurinol CBC & BMP Diagram 12/11/17 15:34 Total Protein 7.3, Albumin 3.6, Calcium Level 9.0, Alkaline Phosphatase 114, Aspartate Amino Transf (AST/SGOT) 29, Alanine Aminotransferase (ALT/SGPT) 34, Total Bilirubin 0.2 Leukocytosis present. Patient denies any use of steroids or other prednisone. She presented to the emergency department August 2016 for very similar symptoms. Says she has received multiple x-rays and imaging studies previously and have all been negative. Patient and son state that she had an x-ray of the foot at her manager people's office Thursday. These results are not available to me. Her sons name is Benedicto Chi. Phone number [phone]. He is available for questions. Based off of the request from her manager people, Dr. Montano it appears that he is concerned about osteonecrosis versus osteomyelitis. I ordered a CTA with runoff as requested and will admit to medicine. Recommend vascular and podiatry consult as requested by Dr. Montano. CT with runoff demonstrates "1. Short segment occlusion of the distal left superficial femoral artery with reconstitution distally the popliteal artery. 2. There is a good single vessel runoff to the left foot via the posterior tibial artery. There is also some flow in the peroneal and dorsalis pedis arteries on the proximal foot on the left. 3. No hemodynamically significant stenosis on right-sided runoff. 4. Previous fusion of lumbar spine. No acute findings within the abdomen or pelvis. Colonic diverticulosis." Withheld antibiotics as she has received antibiotics previously. It appears that she has ischemic limb vs osteomyelitis. the etiology is not completely clear to me and I prefer to have podiatry consult prior to starting medications. This patient does not appear emergent as her condition has been present for months. Patient is admitted to Dr. Kelley. Diagnosis Primary Impression: Leukocytosis Qualified Codes: D72.829 - Elevated white blood cell count, unspecified Additional Impressions: Foot pain, left Osteomyelitis Admitting Information Admitting Physician Requests: Admit Condition: Stable Elva Haas Dec 11, 2017 18:34
[2017-12-11] MEDS ORDERED: oxyCODONE/ACETAMINOPHEN 5 MG/325 MG TAB PO ONE (19:00)
[2017-12-11] MEDS ORDERED: IOHEXOL 350 MG/ML 10 ML VIAL (for RAD DIAG) IVCONTRAST ONE (20:24)
[2017-12-11 22:30] VITALS: BP 155/83; PULSE 62; RESP 16; O2SAT 96
[2017-12-11] MEDS ORDERED: MORPHINE SULFATE 2 MG/ML INJ IV PUSH ONE (22:30)
--- NOTE | 2017-12-11 22:58 | RADRPT ---
EXAM DATE/TIME: 12/11/2017 20:14 [facility] COMPARISON: No previous studies available for comparison. INDICATIONS : Left foot pain. Peripheral artery disease. IV CONTRAST: 100 cc Omnipaque 350 (iohexol) IV RADIATION DOSE: 2.11 CTDIvol (mGy) MEDICAL HISTORY : Hypertension. Cardiovascular disease SURGICAL HISTORY : Hysterectomy. Cholecystectomy.Appendectomy.Fusion, lumbar. ENCOUNTER: Initial ACUITY: 1 day PAIN SCALE: 5/10 LOCATION: Left foot TECHNIQUE: Volumetric scanning was performed using a multi-row detector CT scanner. The data was post processed with a variety of visualization algorithms including full volume maximum intensity projection, multi -planar sliding thin slab reformation, curved planar reformation, and surface rendering techniques. Using automated exposure control and adjustment of the mA and/or kV according to patient size, radiat ion dose was kept as low as reasonably achievable to obtain optimal diagnostic quality images. DICO M format image data is available electronically for review and comparison. FINDINGS: There is extensive calcific atherosclerotic disease in the lower thoracic and abdominal aorta and bra nches extending down both lower extremities. No discrete aneurysms. The celiac and superior mesenteric and renal arteries are patent. Both the common iliac and external iliac arteries are patent. There is flow both internal iliac arteries as well. On the left side there is a short segment occlusion of the distal left superficial femoral artery wit h reconstitution distally of the popliteal artery. On the left side the trifurcation is intact and th ere is good posterior tibial runoff to the left foot. Less robust dorsalis pedis and peroneal artery runoff is noted as well. On the right side is atherosclerotic disease of the lower extremity vessels with 2 vessel runoff at t he right foot and no segmental occlusions. CONCLUSION: 1. Short segment occlusion of the distal left superficial femoral artery with reconstitution distally of the popliteal artery. 2. There is good single vessel runoff to the left foot via the posterior tibial artery. There is also some flow in the peroneal and dorsalis pedis arteries in the proximal foot on the left. 3. No hemodynamically significant stenosis on right-sided runoff. 4. Previous fusion of the lumbar spine. No acute findings within the abdomen or pelvis. Colonic diver ticulosis. Darrius Celestin MD on December 11, 2017 at 22:47 Board Certified Radiologist. This report was verified electronically.
[2017-12-11] MEDS ORDERED: SENNOSIDES 8.6 MG TAB PO PRN (23:30)
[2017-12-11] MEDS ORDERED: BISACODYL 10 MG SUPP RECTAL PRN (23:30)
[2017-12-11] MEDS ORDERED: ACETAMINOPHEN 325 MG TAB PO PRN (23:30)
[2017-12-11] MEDS ORDERED: MAGNESIUM HYDROXIDE SUSP 30 ML CUP PO PRN (23:30)
[2017-12-11] MEDS ORDERED: SODIUM CHLORIDE 0.9% FLUSH 10 ML FLUSH IV FLUSH PRN (23:30)
[2017-12-11] MEDS ORDERED: ONDANSETRON HCL 4 MG/2 ML VIAL IVP PRN (23:30)
[2017-12-11] MEDS ORDERED: LACTULOSE SYRUP 20 GM/30 ML CUP PO PRN (23:30)
--- NOTE | 2017-12-11 23:32 | HHI.HP ---
[facility] Phys[facility] Darron Muller DO Admission Diagnosis Osteomyelitis vs ischemic limb Diagnoses: (1) PAD (peripheral artery disease) Diagnosis: Principal (2) Leukocytosis Diagnosis: Principal (3) HTN (hypertension) Diagnosis: Principal (4) Renal insufficiency Diagnosis: Principal (5) A-fib Diagnosis: Principal Travel History International Travel<30 Days: No Contact w/Intl Traveler <30 Da: No Traveled to Known Affected Are: No History of Present Illness This is an 87-year-old female with a PMH of HTN, A. fib on Eliquis, Hyperlipidemia and Arthritis who was referred to the ER for admission by Dr. Begum for evaluation of left 4th toe. Per patient she hit her foot on a vacuum curtain cleaner approx 2wks ago, seen by her Api Architect Dr. Hidalgo, states she had X-ray which was negative for fracture, however had ongoing pain and sent for repeat imaging to eval for possible osteomyelitis, per patient X-ray negative. Had LE Doppler 2 days ago, also reportedly negative. Today w/ significant pain in left toe, seen by Dr. Begum and sent to ER for eval w/ Vascular Sx and w/ Dr. Hidalgo in addition to CTA with runoff. On arrival, BP 141/66, HR 67, O2 sat 97% on RA, Afebrile. WBC 17.1. Creatinine 1.17. CTA with runoff short segment occlusion distal left superficial femoral artery with reconstitution distally, good single-vessel runoff, no hemodynamically significant stenosis right-sided runoff. Review of Systems Except as stated in HPI: all other systems reviewed are Neg ROS: 14 point review of systems otherwise negative. Past Family Social History Past Medical History PMH: HTN, A. fib on Eliquis, Hyperlipidemia and Arthritis Past Surgical History PAST SURGICAL HISTORY: Appendectomy, Back Surgery, Cardiac Ablation, Hysterectomy, Cholecystectomy, Dental Implants Allergies: Coded Allergies: Horse/Equine Containing Products (Unverified Allergy, Severe, HIVES, ) Family History PAST FAMILY HISTORY: Reviewed. No h/o DM or CAD Social History PAST SOCIAL HISTORY: Occasional alcohol. Negative for tobacco or drugs. Physical Exam Vital Signs Vital Signs Date Time Temp Pulse Resp B/P (MAP) Pulse Ox O2 Delivery O2 Flow Rate FiO2 12/11/17 18:24 66 15 167/76 (106) 95 Room Air 12/11/17 15:06 98.3 67 18 141/66 (91) 97 Physical Exam PE: GENERAL: Very pleasant elderly female in no acute distress. HEENT: PERRLA, EOMI. No scleral icterus or conjunctival pallor. No lid lag or facial droop. CARDIOVASCULAR: Regular rate and rhythm. No obvious murmurs to auscultation. No chest tenderness to palpation. RESPIRATORY: No obvious rhonchi or wheezing. Clear to auscultation. Breath sounds equal bilaterally. GASTROINTESTINAL: Abdomen soft, non-tender, nondistended. BS normal. MUSCULOSKELETAL: Extremities without clubbing, cyanosis, or edema. No obvious deformities. Left 4th toe w/ cyanosis, tenderness to palpation, left 3rd toe mild cyanosis. Pulses intact. NEUROLOGICAL: Awake, alert and oriented x4. No focal neurologic deficits. Moving both upper and lower extremities spontaneously. Laboratory Laboratory Tests Test 12/11/17 15:34 12/11/17 15:36 White Blood Count 17.1 Red Blood Count 4.66 Hemoglobin 14.0 Hematocrit 42.1 Mean Corpuscular Volume 90.4 Mean Corpuscular Hemoglobin 30.0 Mean Corpuscular Hemoglobin Concent 33.1 Red Cell Distribution Width 17.5 Platelet Count 588 Mean Platelet Volume 8.7 Neutrophils (%) (Auto) 77.1 Lymphocytes (%) (Auto) 11.6 Monocytes (%) (Auto) 6.8 Eosinophils (%) (Auto) 3.2 Basophils (%) (Auto) 1.3 Neutrophils # (Auto) 13.2 Lymphocytes # (Auto) 2.0 Monocytes # (Auto) 1.2 Eosinophils # (Auto) 0.5 Basophils # (Auto) 0.2 CBC Comment DIFF FINAL Differential Comment Blood Urea Nitrogen 28 Creatinine 1.17 Random Glucose 103 Total Protein 7.3 Albumin 3.6 Calcium Level 9.0 Alkaline Phosphatase 114 Aspartate Amino Transf (AST/SGOT) 29 Alanine Aminotransferase (ALT/SGPT) 34 Total Bilirubin 0.2 Sodium Level 140 Potassium Level 4.5 Chloride Level 103 Carbon Dioxide Level 28.8 Anion Gap 8 Estimat Glomerular Filtration Rate 44 Lactic Acid Level 1.1 Date/Time Source Procedure Growth Status 12/11/17 15:45 Blood Peripheral Aerobic Blood Culture Pending Received 12/11/17 15:45 Blood Peripheral Anaerobic Blood Culture Pending Received Result Diagram: 12/11/17 1534 12/11/17 1534 Caprin VTE Risk Assessment Caprini VTE Risk Assessment: Mod/High Risk (score >= 2) Caprini Risk Assessment Model Point Value = 1 Point Value = 2 Point Value = 3 Point Value = 5 Age 41-60 Minor surgery BMI > 25 kg/m2 Swollen legs Varicose veins or History of unexplained or recurrent spontaneous Oral contraceptives or hormone replacement Sepsis (< 1 month) Serious lung disease, including pneumonia (< 1 month) Abnormal pulmonary function Acute myocardial infarction Congestive heart failure (< 1 month) History of inflammatory bowel disease Medical patient at bed rest Age 61-74 Arthroscopic surgery Major open surgery (> 45 min) Laparoscopic surgery (> 45 min) Malignancy Confined to bed (> 72 hours) Immobilizing plaster cast Central venous access Age >= 75 History of VTE Family history of VTE Factor V Leiden Prothrombin [id number] Lupus anticoagulant Anticardiolipin antibodies Elevated serum homocysteine Heparin-induced thrombocytopenia Other congenital or acquired thrombophilia Stroke (< 1 month) Elective arthroplasty Hip, pelvis, or leg fracture Acute spinal cord injury (< 1 month) Prophylaxis Regimen Total Risk Factor Score Risk Level Prophylaxis Regimen 0-1 Low Early ambulation 2 Moderate Order ONE of the following: *Sequential Compression Device (SCD) *Heparin 5000 units SQ BID 3-4 Higher Order ONE of the following medications: *Heparin 5000 units SQ TID *Enoxaparin/Lovenox 40 mg SQ daily (WT < 150 kg, CrCl > 30 mL/min) *Enoxaparin/Lovenox 30 mg SQ daily (WT < 150 kg, CrCl > 10-29 mL/min) *Enoxaparin/Lovenox 30 mg SQ BID (WT < 150 kg, CrCl > 30 mL/min) AND/OR *Sequential Compression Device (SCD) 5 or more Highest Order ONE of the following medications: *Heparin 5000 units SQ TID (Preferred with Epidurals) *Enoxaparin/Lovenox 40 mg SQ daily (WT < 150 kg, CrCl > 30 mL/min) *Enoxaparin/Lovenox 30 mg SQ daily (WT < 150 kg, CrCl > 10-29 mL/min) *Enoxaparin/Lovenox 30 mg SQ BID (WT < 150 kg, CrCl > 30 mL/min) AND *Sequential Compression Device (SCD) Assessment and Plan Problem List: (1) PAD (peripheral artery disease) ICD Code: I73.9 - Peripheral vascular disease, unspecified (2) Leukocytosis ICD Code: D72.829 - Elevated white blood cell count, unspecified (3) HTN (hypertension) ICD Code: I10 - Essential (primary) hypertension (4) Renal insufficiency ICD Code: N28.9 - Disorder of kidney and ureter, unspecified (5) A-fib ICD Code: I48.91 - Unspecified atrial fibrillation Assessment and Plan A/P: 1. PAD: left 4th toe w/ pain/cyanosis, CTA w/ Run-off showing short segment occlusion of distal left superficial femoral artery with reconstitution distally of popliteal artery with good single-vessel runoff to the left foot via posterior tibial artery, some flow in peroneal and dorsalis pedis arteries and proximal left foot, images reviewed by me. Consult Vascular Sx. Resume home Eliquis and Pravastatin. Lactic Acid normal. 2. Leukocytosis: WBC 17, referred to ER w/ concern for underlying osteomyelitis, however negative on imaging. Following w/ Dr. Sterling, will consult for further evaluation/intervention 3. HTN: Uncontrolled. BP 160-170's, resume home medications, monitor BP. 4. Renal Insufficiency: Creatinine 1.17, no previous labs for comparison, presumably new. IVF for hydration, repeat labs in am. 5. A-fib: Chronic. Resume home Eliquis, Amiodarone. 6. DVT prophylaxis: On Eliquis as above. 7. Social work for d/c planning as needed. 8. Case discussed w/ ER physician at length. Physician Certification 2 Midnight Certification Type: Admission for Inpatient Services Order for Inpatient Services The services are ordered in accordance with Medicare regulations or non- Medicare payer requirements, as applicable. In the case of services not specified as inpatient-only, they are appropriately provided as inpatient services in accordance with the 2-midnight benchmark. Estimated LOS (days): 2 days is the estimated time the patient will need to remain in the hospital, assuming treatment plan goals are met and no additional complications. Post-Hospital Plan: Not yet determined Camelia Kelley MD Dec 11, 2017 23:32
[2017-12-12 02:30] VITALS: BP 152/75; PULSE 73; RESP 16; O2SAT 96
[2017-12-12] MEDS: SODIUM CHLOR 0.9% 1000 ML INJ 1,000 ML IV SCH ×3 (03:32→20:25)
[2017-12-12] MEDS: LEVOTHYROXINE SODIUM 50 MCG TAB PO SCH (06:26)
[2017-12-12 08:47] LABS: BASOPHIL # 0.2 TH/MM3 (0-0.2); BASOPHIL % 1.1 % (0.0-2.0); EOSINOPHIL # 0.5 TH/MM3 (0-0.4); EOSINOPHIL % 3.4 % (0.0-4.0); HEMATOCRIT 40.3 % (35.0-46.0); HEMOGLOBIN 13.7 GM/DL (11.6-15.3); LYMPH % 10.5 % (9.0-44.0); LYMPHOCYTE # 1.5 TH/MM3 (1.0-4.8); MEAN CELL VOLUME 91.4 FL (80.0-100.0); MEAN CORPUSCULAR HEMOGLOBIN 31.1 PG (27.0-34.0); MEAN PLATELET VOLUME 8.9 FL (7.0-11.0); MONO % 7.9 % (0.0-8.0); MONOCYTE # 1.1 TH/MM3 (0-0.9); NEUT % 77.1 % (16.0-70.0); PLATELET COUNT 500 TH/MM3 (150-450); RED BLOOD COUNT 4.41 MIL/MM3 (4.00-5.30); RED CELL DISTRIBUTION WIDTH 18.2 % (11.6-17.2); WHITE BLOOD COUNT 14.3 TH/MM3 (4.0-11.0)
[2017-12-12] MEDS: MORPHINE SULFATE 2 MG/ML INJ IV PUSH PRN ×3 (08:54→23:06)
[2017-12-12 08:58] VITALS: BP 171/72; PULSE 58
[2017-12-12 08:59] LABS: ALBUMIN 3.5 GM/DL (3.4-5.0); AST (GOT) 26 U/L (15-37); BICARBONATE 25.6 MEQ/L (21.0-32.0); BLOOD UREA NITROGEN 22 MG/DL (7-18); CALCIUM 9.6 MG/DL (8.5-10.1); CHLORIDE 105 MEQ/L (98-107); CREATININE 1.06 MG/DL (0.50-1.00); GLOMERULAR FILTRATION RATE 49 ML/MIN (>89); GLUCOSE,RANDOM 109 MG/DL (74-106); SODIUM (NA) 140 MEQ/L (136-145)
[2017-12-12 09:00] LABS: ALT (GPT) 32 U/L (10-53)
[2017-12-12] MEDS: DOCUSATE SODIUM 50 MG/SENNA 8.6 MG TAB PO SCH ×2 (09:00→20:23)
[2017-12-12] MEDS: MULTIVITAMIN TAB PO SCH (09:00)
[2017-12-12 09:02] LABS: ALKALINE PHOSPHATASE 101 U/L (45-117); TOTAL BILIRUBIN ADULT 0.3 MG/DL (0.2-1.0)
[2017-12-12] MEDS: SODIUM CHLORIDE 0.9% FLUSH 10 ML FLUSH IV FLUSH SCH ×2 (10:28→20:25)
[2017-12-12] MEDS: AMIODARONE 200 MG TAB PO SCH (10:28)
[2017-12-12] MEDS: ASPIRIN EC 81 MG TABEC PO SCH (10:29)
[2017-12-12] MEDS: APIXABAN 2.5 MG TABLET PO SCH ×2 (10:29→20:23)
[2017-12-12] MEDS: ISOSORBIDE MONONITRATE 30 MG CR TAB (IMDUR) PO SCH (10:30)
[2017-12-12] MEDS: ALLOPURINOL 100 MG TAB PO SCH ×2 (10:31→20:23)
[2017-12-12] MEDS: PRAVASTATIN SOD 80 MG TAB PO SCH (10:31)
[2017-12-12] MEDS: amLODIPine BESYLATE 5 MG TAB PO SCH (11:47)
[2017-12-12 12:03] VITALS: BP 156/70
--- NOTE | 2017-12-12 15:50 | PD.CAR.PN ---
CVT Progress Note Subjective/Hospital Course: Patient evaluated Full consult dictated Thanks J Objective: Vital Signs Date Time Temp Pulse Resp B/P (MAP) Pulse Ox O2 Delivery O2 Flow Rate FiO2 12/12/17 12:03 156/70 (98) 12/12/17 12:03 156/70 (98) 12/12/17 08:58 58 171/72 (105) Room Air 12/12/17 02:30 73 16 152/75 (100) 96 Room Air 12/11/17 22:30 62 16 155/83 (107) 96 Room Air 12/11/17 18:24 66 15 167/76 (106) 95 Room Air Labs: Laboratory Tests Test 12/12/17 07:40 White Blood Count 14.3 TH/MM3 (4.0-11.0) Red Blood Count 4.41 MIL/MM3 (4.00-5.30) Hemoglobin 13.7 GM/DL (11.6-15.3) Hematocrit 40.3 % (35.0-46.0) Mean Corpuscular Volume 91.4 FL (80.0-100.0) Mean Corpuscular Hemoglobin 31.1 PG (27.0-34.0) Mean Corpuscular Hemoglobin Concent 34.0 % (32.0-36.0) Red Cell Distribution Width 18.2 % (11.6-17.2) Platelet Count 500 TH/MM3 (150-450) Mean Platelet Volume 8.9 FL (7.0-11.0) Neutrophils (%) (Auto) 77.1 % (16.0-70.0) Lymphocytes (%) (Auto) 10.5 % (9.0-44.0) Monocytes (%) (Auto) 7.9 % (0.0-8.0) Eosinophils (%) (Auto) 3.4 % (0.0-4.0) Basophils (%) (Auto) 1.1 % (0.0-2.0) Neutrophils # (Auto) 11.0 TH/MM3 (1.8-7.7) Lymphocytes # (Auto) 1.5 TH/MM3 (1.0-4.8) Monocytes # (Auto) 1.1 TH/MM3 (0-0.9) Eosinophils # (Auto) 0.5 TH/MM3 (0-0.4) Basophils # (Auto) 0.2 TH/MM3 (0-0.2) CBC Comment DIFF FINAL Differential Comment Blood Urea Nitrogen 22 MG/DL (7-18) Creatinine 1.06 MG/DL (0.50-1.00) Random Glucose 109 MG/DL (74-106) Total Protein 7.0 GM/DL (6.4-8.2) Albumin 3.5 GM/DL (3.4-5.0) Calcium Level 9.6 MG/DL (8.5-10.1) Alkaline Phosphatase 101 U/L (45-117) Aspartate Amino Transf (AST/SGOT) 26 U/L (15-37) Alanine Aminotransferase (ALT/SGPT) 32 U/L (10-53) Total Bilirubin 0.3 MG/DL (0.2-1.0) Sodium Level 140 MEQ/L (136-145) Potassium Level 4.2 MEQ/L (3.5-5.1) Chloride Level 105 MEQ/L (98-107) Carbon Dioxide Level 25.6 MEQ/L (21.0-32.0) Anion Gap 9 MEQ/L (5-15) Estimat Glomerular Filtration Rate 49 ML/MIN (>89) Result Diagram: 12/12/17 0740 12/12/17 0740 Lesvia Lopez MD Dec 12, 2017 15:50
[2017-12-12 16:00] VITALS: BP 121/63; PULSE 57; RESP 17; TEMP 97.3; O2SAT 92
--- NOTE | 2017-12-12 17:07 | HHI.PR ---
Subjective Remarks Follow-up for peripheral arterial disease. Patient is currently doing well. She complains of pain from her left fourth toe. No fever or chills. Tolerating diet well. Objective Vitals Vital Signs Date Time Temp Pulse Resp B/P (MAP) Pulse Ox O2 Delivery O2 Flow Rate FiO2 12/12/17 16:00 97.3 57 17 121/63 (82) 92 12/12/17 12:03 156/70 (98) 12/12/17 12:03 156/70 (98) 12/12/17 08:58 58 171/72 (105) Room Air 12/12/17 02:30 73 16 152/75 (100) 96 Room Air 12/11/17 22:30 62 16 155/83 (107) 96 Room Air 12/11/17 18:24 66 15 167/76 (106) 95 Room Air Result Diagram: 12/12/17 0740 12/12/17 0740 Imaging Last Impressions Aorta w/Runoff CTA 12/11/17 0000 Signed Impressions: Service Date/Time: Monday, December 11, 2017 20:14 - CONCLUSION: 1. Short segment occlusion of the distal left superficial femoral artery with reconstitution distally of the popliteal artery. 2. There is good single vessel runoff to the left foot via the posterior tibial artery. There is also some flow in the peroneal and dorsalis pedis arteries in the proximal foot on the left. 3. No hemodynamically significant stenosis on right-sided runoff. 4. Previous fusion of the lumbar spine. No acute findings within the abdomen or pelvis. Colonic diverticulosis. Darrius Celestin MD Objective Remarks GENERAL: Alert, oriented 3, NAD. SKIN: Warm and dry. HEAD: Normocephalic. EYES: No scleral icterus. No injection or drainage. NECK: Supple, trachea midline. No JVD or lymphadenopathy. CARDIOVASCULAR: Regular rate and rhythm without murmurs, gallops, or rubs. RESPIRATORY: Breath sounds equal bilaterally. No accessory muscle use. GASTROINTESTINAL: Abdomen soft, non-tender, nondistended. MUSCULOSKELETAL: No cyanosis, or edema. Left fourth toe has a deluca bluish hue consistent with hypoperfusion. BACK: Nontender without obvious deformity. No CVA tenderness. Procedures None A/P Problem List: (1) PAD (peripheral artery disease) ICD Code: I73.9 - Peripheral vascular disease, unspecified (2) HTN (hypertension) ICD Code: I10 - Essential (primary) hypertension (3) Renal insufficiency ICD Code: N28.9 - Disorder of kidney and ureter, unspecified (4) A-fib ICD Code: I48.91 - Unspecified atrial fibrillation Assessment and Plan This is an 87-year-old female with a PMH of HTN, A. fib on Eliquis, Hyperlipidemia and Arthritis who was referred to the ER for admission by Dr. Begum for evaluation of left 4th toe. On arrival, BP 141/66, HR 67, O2 sat 97 % on RA, Afebrile. WBC 17.1. Creatinine 1.17. CTA with runoff short segment occlusion distal left superficial femoral artery with reconstitution distally, good single-vessel runoff, no hemodynamically significant stenosis right-sided runoff. Peripheral arterial disease Left 4th digit cyanosis Vascular surgery consult. Discussed with Dr. Velasquez who will likely perform intervention early next week. Continue aspirin, apixaban 2.5 mg twice daily Continue [place], acetaminophen as needed for pain. D/C Percocet. Dr. Krystal Whitney evaluated patient. Probably no podiatry intervention at this point. Hypertension Atrial fibrillation Hyperlipidemia Hypothyroidism Continue amiodarone 200 mg p.o. daily, amlodipine 5 mg p.o. daily, apixaban 2.5 mg p.o. twice daily. Continue levothyroxine 50 mcg daily Continue isosorbide mononitrate 30 mg p.o. daily Continue pravastatin 80 mg p.o. daily. Full code. Apixaban. Hawa Carlos DO Dec 12, 2017 5:07 pm
--- NOTE | 2017-12-12 17:39 | MB ---
cc: Lesvia Lopez MD, Slobodan MD DATE: 12/12/2017 REASON FOR CONSULTATION: 1. 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 2. Peripheral vascular disease. HISTORY OF PRESENT ILLNESS: This 87-year-old female presents to the emergency room after being seen by Dr. Begum in the podiatry office. She noted her left fourth toe getting darker and some redness over the left foot, hence the presentation. This is consistent of early gangrene of the left fourth toe and question arises about any vascular implications. The patient states that she can walk short distances. She drives, had several problems in the past. PAST MEDICAL HISTORY: Complex. The patient is known cardiology patient to Dr. Preston with history of coronary artery disease, negative stress test, atrial fibrillation on Coreg and Eliquis. Hypertension, diabetes mellitus, several syncopal episodes, history of bradycardia as well as hypothyroidism. PAST SURGICAL HISTORY: Multiple cardioversions, ablation in 2014, hysterectomy, cholecystectomy, appendectomy. MEDICATIONS: Can be found on the chart, include carvedilol, aspirin, allopurinol, amiodarone, Eliquis and Synthroid as well as hydrochlorothiazide. SOCIAL HISTORY: The patient does not drink or smoke. Drinks only wine with food. PHYSICAL EXAMINATION: GENERAL: Reveals a very pleasant 87-year-old female, awake, alert, oriented. HEENT: Pupils are equal, reactive. Extraocular muscles intact. NECK: Bilateral carotid pulses. No bruits. CHEST: Bilateral breath sounds, decreased over both apices, consistent with some degree of pulmonary emphysema consistent with age. CARDIOVASCULAR: Actually regular rhythm. While I was looking at the patient, she did not have atrial fibrillation or it must be a very slow version. ABDOMEN: Soft, active bowel sounds. Scars from previous surgery. No rebound, no guarding, no masses. EXTREMITIES: The patient has palpable femoral pulses, palpable right popliteal pulse, dopplerable left one and then weak dorsalis pedis pulses probably ____ constitution and then posterior tibial pulses bilaterally by Doppler. Feet are warm and well perfused. The patient does have gangrenous left fourth toe, which is purple in color. The patient has significant dependent rubor in the left foot, but not so much in the right and elevation pallor the same way. NEUROLOGIC: Grossly she is intact. IMPRESSION AND RECOMMENDATIONS: I reviewed laboratory and diagnostic procedures. This lady indeed has diminished pulses in the left lower leg with the 3 vessels. Posterior tibial is the dominant, the only artery running to the foot; however, there is some reconstitution at the level of the plantar arch and there are bits and pieces of the other 2 vessels. The patient does have gangrenous fourth toe, making this a limb threatening ischemia by the physician. She has a short segment occlusion of superficial femoral artery above the knee. At this point, options are several. The fourth toe is going to be lost no matter what. However, at this point, we are going to save the foot because this is next. The patient would be a candidate for either percutaneous arthrectomy and angioplasty of the superficial femoral artery or femoral-popliteal bypass with either in situ vein or a graft. The patient has pretty good veins, so the former possibility might be an option. I have discussed with the patient and the family. About 2 hours after consult was done, I found out that the patient has seen Dr. Wise in the past, probably in the office. I texted to Dr. Wise and he will take over the care of the patient Thursday. I thank you very much for referral. MD SOLEDAD Anderson//kaylee , 01:54 PM , 05:14 PM
--- NOTE | 2017-12-12 19:00 | PD.CONS ---
History of Present Illness Service Foot and ankle surgery/podiatry Consult Requested By Reason for Consult Left fourth digit ischemia/discoloration Primary Care Physician Darron Muller DO Diagnoses: History of Present Illness Podiatry consulted for this 87-year-old female with past medical history of atrial fibrillation, and gout who presents the emergency department with left fourth digit discoloration. She states the digit is very sore and tender, she hit it on a vacuum auto cleaner several months ago. She was sent to the emergency department by Dr. Henrry Begum for a vascular consult. She denies any fevers , chills, chest pain, shortness of breath, abdominal pain, leg pain. Review of Systems Constitutional: DENIES: Fatigue, Fever Ears, nose, mouth, throat: DENIES: Tinnitus Respiratory: DENIES: Cough, Shortness of breath Cardiovascular: COMPLAINS OF: Lower Extremity Edema, DENIES: Chest pain, Palpitations Gastrointestinal: DENIES: Abdominal pain Musculoskeletal: DENIES: Joint pain, Muscle aches Neurologic: COMPLAINS OF: Abnormal gait Psychiatric: DENIES: Anxiety, Confusion Past Family Social History Allergies: Coded Allergies: Horse/Equine Containing Products (Unverified Allergy, Severe, HIVES, ) Past Medical History As dictated in HPI Active Ordered Medications Current Medications Medications (Trade) Dose Ordered Sig/Kalpana Route Start Time Stop Time Status Last Admin Sodium Chloride 1,000 ml @ 100 mls/hr Q10H IV 12/11/17 23:22 12/12/17 10:32 (NS Flush) 2 ml UNSCH PRN IV FLUSH 12/11/17 23:30 (NS Flush) 2 ml BID IV FLUSH 12/12/17 09:00 12/12/17 10:28 (Zofran Inj) 4 mg Q6H PRN IVP 12/11/17 23:30 (Tylenol) 650 mg Q6H PRN PO 12/11/17 23:30 (Macy 5-325 Mg) 1 tab Q4H PRN PO 12/11/17 23:30 (Morphine Inj) 4 mg Q3H PRN IV PUSH 12/11/17 23:30 12/12/17 12:35 (Maxine-Colace) 1 tab BID PO 12/12/17 09:00 (Milk Of Magnesia Liq) 30 ml Q12H PRN PO 3/23/18 23:30 (Senokot) 17.2 mg Q12H PRN PO 12/11/17 23:30 (Dulcolax Supp) 10 mg DAILY PRN RECTAL 12/11/17 23:30 (Lactulose Liq) 30 ml DAILY PRN PO 12/11/17 23:30 (Ecotrin Ec) 81 mg DAILY PO 12/12/17 09:00 12/12/17 10:29 (Zyloprim) 100 mg BID PO 12/12/17 09:00 12/12/17 10:31 (Cordarone) 200 mg DAILY PO 12/12/17 09:00 12/12/17 10:28 (Norvasc) 5 mg DAILY PO 12/12/17 09:00 12/12/17 11:47 (Imdur) 30 mg DAILY PO 12/12/17 09:00 12/12/17 10:30 (Synthroid) 50 mcg DAILY@0600 PO 12/12/17 06:00 12/12/17 06:26 (Pravachol) 80 mg DAILY PO 12/12/17 09:00 12/12/17 10:31 (Theragran) 1 tab DAILY PO 12/12/17 09:00 (Eliquis) 2.5 mg BID PO 12/12/17 09:00 12/12/17 10:29 Physical Exam Vital Signs Vital Signs Date Time Temp Pulse Resp B/P (MAP) Pulse Ox O2 Delivery O2 Flow Rate FiO2 12/12/17 16:00 97.3 57 17 121/63 (82) 92 12/12/17 12:03 156/70 (98) 12/12/17 12:03 156/70 (98) 12/12/17 08:58 58 171/72 (105) Room Air 12/12/17 02:30 73 16 152/75 (100) 96 Room Air 12/11/17 22:30 62 16 155/83 (107) 96 Room Air Physical Exam GENERAL: This is a well-nourished, well-developed patient, in no apparent distress. SKIN: Intact HEAD: Atraumatic. EYES: Pupils equal round and reactive. ENT: Airway patent. NECK: Trachea midline. RESPIRATORY: Nonlabored breathing. MUSCULOSKELETAL:. Negative Homans sign bilaterally. NEUROLOGICAL: Awake and alert. Normal speech. Lower extremity physical exam: Vascular: Dorsalis pedis diminished, posterior tibial nonpalpable. Capillary refill time within normal limits to digits 5 bilateral foot. Edema present left fourth digit. Neuro: Gross sensation intact to bilateral lower extremity. Pinpoint sensation decreased. No hyperalgesia noted to bilateral lower extremity Dermatology: Normal temperature and turgor to bilateral lower extremity. Left fourth digit ecchymosis, ischemia noted with no associated ascending erythema/ cellulitis or lymphangitis Musculoskeletal: Tender to palpation to left fourth digit. Laboratory Laboratory Tests Test 12/12/17 07:40 White Blood Count 14.3 Red Blood Count 4.41 Hemoglobin 13.7 Hematocrit 40.3 Mean Corpuscular Volume 91.4 Mean Corpuscular Hemoglobin 31.1 Mean Corpuscular Hemoglobin Concent 34.0 Red Cell Distribution Width 18.2 Platelet Count 500 Mean Platelet Volume 8.9 Neutrophils (%) (Auto) 77.1 Lymphocytes (%) (Auto) 10.5 Monocytes (%) (Auto) 7.9 Eosinophils (%) (Auto) 3.4 Basophils (%) (Auto) 1.1 Neutrophils # (Auto) 11.0 Lymphocytes # (Auto) 1.5 Monocytes # (Auto) 1.1 Eosinophils # (Auto) 0.5 Basophils # (Auto) 0.2 CBC Comment DIFF FINAL Differential Comment Blood Urea Nitrogen 22 Creatinine 1.06 Random Glucose 109 Total Protein 7.0 Albumin 3.5 Calcium Level 9.6 Alkaline Phosphatase 101 Aspartate Amino Transf (AST/SGOT) 26 Alanine Aminotransferase (ALT/SGPT) 32 Total Bilirubin 0.3 Sodium Level 140 Potassium Level 4.2 Chloride Level 105 Carbon Dioxide Level 25.6 Anion Gap 9 Estimat Glomerular Filtration Rate 49 Date/Time Source Procedure Growth Status 12/11/17 15:45 Blood Peripheral Aerobic Blood Culture - Preliminary NO GROWTH IN 1 DAY Resulted 12/11/17 15:45 Blood Peripheral Anaerobic Blood Culture - Preliminary NO GROWTH IN 1 DAY Resulted Result Diagram: 12/12/17 0740 12/12/17 0740 Assessment and Plan Assessment and Plan 87-year-old female with discoloration/ischemia to left fourth digit Patient examined evaluated with all questions answered Left fourth digit concern for ischemia Vascular consult placed We will follow vascular recommendations No surgical planned for patient Will monitor for changes closely Krystal Whitney DPM Dec 12, 2017 19:00
[2017-12-12 20:00] VITALS: BP 150/67; PULSE 63; RESP 16; TEMP 97.9; O2SAT 94
--- NOTE | 2017-12-12 23:07 | RADRPT ---
EXAM DATE/TIME: 12/12/2017 21:17 [facility] COMPARISON: US CAROTID ARTERIES, August 21, 2017, 10:57. INDICATIONS : Stenosis. MEDICAL HISTORY : Myocardial infarction. Hypercholesterolemia. Arthritis. Syncope. Chest pain. HTN. Osteoporosis. Antic oagulant therapy, Eliquis. SURGICAL HISTORY : Cholecystectomy. Appendectomy. Hysterectomy. Dental implants. Cardiac ablasion. Polyps removed. Bila teral carpel tunnel release. Blood transfusions. Back surgery. ENCOUNTER: Subsequent ACUITY: 1 day PAIN SCORE: 0/10 LOCATION: Bilateral neck PEAK SYSTOLIC VELOCITIES (cm/sec): ICA/CCA RATIO: Right: 1.8 Left: 1.3 ICA: Right: 187 Left: 107 CCA: Right: 107 Left: 85 ECA: Right: 97 Left: 56 VERTEBRAL: Right: absent Left: 47 antegrade Elevated flow velocities and ICA/CCA ratios have been found to correlate with increased degrees of vessel stenosis, calculated as percentage of diameter relative to a normal segment of distal ICA/CCA FINDINGS: RIGHT CAROTID: Moderate plaque is present in the carotid bulb and proximal internal carotid artery with areas of sha dowing. Also demonstrated mild turbulence and no jet effect. LEFT CAROTID: Mild to moderate plaque is present in the carotid bulb and proximal internal carotid artery with mild shadowing. Color flow demonstrated no significant turbulence no evidence of jet effect. VERTEBRAL ARTERIES: Normal antegrade flow in the left vertebral artery. No flow is identified the right vertebral artery. . MISCELLANEOUS: None. CONCLUSION: 1. No flow again identified in the right vertebral artery which is unchanged from the prior study. 2. Bilateral plaque in the carotid bulbs and proximal internal carotid arteries with 50-69% diameter stenosis in the right internal carotid artery and less than 50% stenosis in the left internal carotid artery by velocity criteria. Fbaián Kaplan MD on December 12, 2017 at 22:57 Board Certified Radiologist. This report was verified electronically.
[2017-12-13] VITALS (7 sets, daily range): BP systolic 126–202; BP diastolic 63–94; PULSE 58–76; RESP 15–20; TEMP 97.8–98.1; O2SAT 92–96
[2017-12-13] MEDS: LEVOTHYROXINE SODIUM 50 MCG TAB PO SCH (06:13)
[2017-12-13] MEDS: SODIUM CHLOR 0.9% 1000 ML INJ 1,000 ML IV SCH ×3 (06:14→23:58)
[2017-12-13] MEDS: SODIUM CHLORIDE 0.9% FLUSH 10 ML FLUSH IV FLUSH SCH ×2 (07:09→19:40)
[2017-12-13] MEDS: MULTIVITAMIN TAB PO SCH (09:06)
[2017-12-13] MEDS: amLODIPine BESYLATE 5 MG TAB PO SCH (09:06)
[2017-12-13] MEDS: APIXABAN 2.5 MG TABLET PO SCH ×2 (09:06→19:41)
[2017-12-13] MEDS: ISOSORBIDE MONONITRATE 30 MG CR TAB (IMDUR) PO SCH (09:06)
[2017-12-13] MEDS: AMIODARONE 200 MG TAB PO SCH (09:07)
[2017-12-13] MEDS: ASPIRIN EC 81 MG TABEC PO SCH (09:07)
[2017-12-13] MEDS: ALLOPURINOL 100 MG TAB PO SCH ×2 (09:07→19:41)
[2017-12-13] MEDS: DOCUSATE SODIUM 50 MG/SENNA 8.6 MG TAB PO SCH ×2 (09:07→19:40)
[2017-12-13] MEDS: PRAVASTATIN SOD 80 MG TAB PO SCH (09:07)
[2017-12-13] MEDS: MORPHINE SULFATE 2 MG/ML INJ IV PUSH PRN ×2 (09:08→22:28)
--- NOTE | 2017-12-13 11:14 | HHI.PR ---
Subjective Remarks Follow up ischemic left 4th toe. The patient states that she feels okay today. No specific complaints. Pain controlled. No nausea or vomiting. Objective Vitals Vital Signs Date Time Temp Pulse Resp B/P (MAP) Pulse Ox O2 Delivery O2 Flow Rate FiO2 12/13/17 08:00 97.9 60 16 167/73 (104) 92 12/13/17 00:00 98.1 60 16 140/63 (88) 94 12/12/17 20:00 97.9 63 16 150/67 (94) 94 12/12/17 16:00 97.3 57 17 121/63 (82) 92 12/12/17 12:03 156/70 (98) 12/12/17 12:03 156/70 (98) I/O 12/12/17 12/12/17 12/12/17 12/13/17 12/13/17 12/13/17 07:00 15:00 23:00 07:00 15:00 23:00 Intake Total 360 ml Output Total 25 ml 200 ml Balance 335 ml -200 ml Intake Oral 360 ml Output Urine Total 25 ml 200 ml # Bowel Movements 0 Result Diagram: 12/12/17 0740 12/12/17 0740 Imaging Last Impressions Aorta w/Runoff CTA 12/11/17 0000 Signed Impressions: Service Date/Time: Monday, December 11, 2017 20:14 - CONCLUSION: 1. Short segment occlusion of the distal left superficial femoral artery with reconstitution distally of the popliteal artery. 2. There is good single vessel runoff to the left foot via the posterior tibial artery. There is also some flow in the peroneal and dorsalis pedis arteries in the proximal foot on the left. 3. No hemodynamically significant stenosis on right-sided runoff. 4. Previous fusion of the lumbar spine. No acute findings within the abdomen or pelvis. Colonic diverticulosis. Darrius Celestin MD Objective Remarks General: Elderly female in no acute distress. Heart: Regular rate and rhythm. No murmur. Lungs: Clear to auscultation bilaterally. No wheezes, rales, or rhonchi. Breathing is nonlabored. Abdomen: Soft, nontender, nondistended. Extremities: No lower extremity edema. Left fourth toe with discoloration. Psych: Alert and oriented. Procedures None Urinary Catheter: No Vascular Central Line Catheter: No A/P Problem List: (1) PAD (peripheral artery disease) ICD Code: I73.9 - Peripheral vascular disease, unspecified (2) HTN (hypertension) ICD Code: I10 - Essential (primary) hypertension (3) Renal insufficiency ICD Code: N28.9 - Disorder of kidney and ureter, unspecified (4) A-fib ICD Code: I48.91 - Unspecified atrial fibrillation Assessment and Plan 1. Peripheral vascular disease, left fourth digit cyanosis: Appreciate podiatry , vascular surgery recommendations. Patient to be reevaluated Chen by vascular surgery with plans for likely surgical intervention. Continue pain control. Continue aspirin, apixaban. 2. Hypertension: Continue amlodipine. 3. Atrial fibrillation: Continue amiodarone, apixaban. 4. Hyperlipidemia: Continue statin. 5. Hypothyroidism: Continue Synthroid. 6. DVT prophylaxis: Apixaban. 7. Consult patient's appeals examiner, Dr. Preston, prior to surgery. Gamaliel Bloom MD Dec 13, 2017 11:14
[2017-12-13] MEDS ORDERED: amLODIPine BESYLATE 5 MG TAB PO ONE (13:00)
--- NOTE | 2017-12-13 15:30 | PD.CAR.PN ---
CVT Progress Note Subjective/Hospital Course: Patient evaluated Full consult dictated Karolyn Velasquez 12/13/2017 As noted in my consultation patient has left SFA occlusion with reconstitution and will need either arthrectomy and stent placement or femoral-popliteal bypass Occlusion is shortened probably attempt to open it up is valid although patient has only one vessel runoff and there is a risk of distal embolization which would result in loss of the extremity We will discuss this with interventional radiologist In addition patient has bilateral carotid stenosis about 60% on the right and about 50% on the left by ultrasound She does not appear to be symptomatic at this time At some point patient will need CTA of the carotids to better understand the situation but for the time being we should concentrate on her legs depending on We will proceed with revascularization of the left leg on Thursday Objective: Vital Signs Date Time Temp Pulse Resp B/P (MAP) Pulse Ox O2 Delivery O2 Flow Rate FiO2 12/13/17 12:00 97.8 58 15 166/72 (103) 92 12/13/17 08:00 97.9 60 16 167/73 (104) 92 12/13/17 00:00 98.1 60 16 140/63 (88) 94 12/12/17 20:00 97.9 63 16 150/67 (94) 94 12/12/17 16:00 97.3 57 17 121/63 (82) 92 Result Diagram: 12/12/17 0740 12/12/17 0740 Lesvia Lopez MD Dec 13, 2017 15:30
[2017-12-13] MEDS: ENALAPRILAT 1.25 MG/ML VIAL IV PUSH PRN (16:15)
[2017-12-13] MEDS ORDERED: ENAL10TA PO (18:13)
[2017-12-13] MEDS: ENALAPRIL MALEATE 10 MG TAB PO SCH (19:41)
[2017-12-13] MEDS ORDERED: cloNIDine HCL 0.1 MG TAB PO ONE (23:45)
[2017-12-14 03:32] VITALS: BP 176/79; PULSE 72; RESP 18; TEMP 98.2; O2SAT 95
[2017-12-14] MEDS: MORPHINE SULFATE 2 MG/ML INJ IV PUSH PRN ×2 (04:45→21:24)
[2017-12-14] MEDS: LEVOTHYROXINE SODIUM 50 MCG TAB PO SCH (06:07)
[2017-12-14 07:20] LABS: AUTOMATED NEUTROPHIL # 15.8 TH/MM3 (1.8-7.7); BASOPHIL # 0.1 TH/MM3 (0-0.2); BASOPHIL % 0.6 % (0.0-2.0); EOSINOPHIL # 0.3 TH/MM3 (0-0.4); EOSINOPHIL % 1.5 % (0.0-4.0); HEMOGLOBIN 12.7 GM/DL (11.6-15.3); LYMPHOCYTE # 0.7 TH/MM3 (1.0-4.8); MEAN CELL VOLUME 91.4 FL (80.0-100.0); MEAN CORPUSCULAR HEMOGLOBIN 30.4 PG (27.0-34.0); MEAN CORPUSCULAR HGB CONC 33.3 % (32.0-36.0); MEAN PLATELET VOLUME 9.1 FL (7.0-11.0); MONO % 5.1 % (0.0-8.0); MONOCYTE # 0.9 TH/MM3 (0-0.9); NEUT % 88.8 % (16.0-70.0); PLATELET COUNT 479 TH/MM3 (150-450); RED BLOOD COUNT 4.16 MIL/MM3 (4.00-5.30); RED CELL DISTRIBUTION WIDTH 16.9 % (11.6-17.2); WHITE BLOOD COUNT 17.8 TH/MM3 (4.0-11.0)
[2017-12-14] MEDS: ENALAPRILAT 1.25 MG/ML VIAL IV PUSH PRN (07:21)
[2017-12-14 07:22] LABS: BICARBONATE 27.4 MEQ/L (21.0-32.0); CREATININE 0.83 MG/DL (0.50-1.00)
[2017-12-14 08:00] VITALS: BP 199/88; PULSE 75; RESP 17; TEMP 98.5; O2SAT 87
[2017-12-14] MEDS: amLODIPine BESYLATE 5 MG TAB PO SCH (09:03)
[2017-12-14] MEDS: MULTIVITAMIN TAB PO SCH (09:03)
[2017-12-14] MEDS: PRAVASTATIN SOD 80 MG TAB PO SCH (09:03)
[2017-12-14] MEDS: DOCUSATE SODIUM 50 MG/SENNA 8.6 MG TAB PO SCH ×2 (09:03→21:17)
[2017-12-14] MEDS: APIXABAN 2.5 MG TABLET PO SCH (09:03)
[2017-12-14] MEDS: ENALAPRIL MALEATE 10 MG TAB PO SCH ×2 (09:04→21:18)
[2017-12-14] MEDS: ASPIRIN EC 81 MG TABEC PO SCH (09:04)
[2017-12-14] MEDS: AMIODARONE 200 MG TAB PO SCH (09:04)
[2017-12-14] MEDS: ALLOPURINOL 100 MG TAB PO SCH ×2 (09:04→21:17)
[2017-12-14] MEDS: ISOSORBIDE MONONITRATE 30 MG CR TAB (IMDUR) PO SCH (09:08)
[2017-12-14] MEDS: SODIUM CHLORIDE 0.9% FLUSH 10 ML FLUSH IV FLUSH SCH ×2 (09:08→22:44)
[2017-12-14] MEDS: ACETAMINOPHEN/HYDROcodone 325 MG/5 MG TAB PO PRN (09:14)
[2017-12-14] MEDS ORDERED: cloNIDine HCL 0.1 MG TAB PO PRN (10:00)
[2017-12-14] MEDS: hydrALAZINE HCL 25 MG TAB PO SCH ×3 (11:15→22:44)
[2017-12-14 12:00] VITALS: BP 153/67; PULSE 69; RESP 18; TEMP 98.5; O2SAT 90
--- NOTE | 2017-12-14 13:20 | MB ---
cc: Fermín Preston MD DATE: 12/14/2017 87-year-old white female known to my practice with a history of atrial fibrillation, on Eliquis anticoagulation, hypertension, [id number] myocardial infarction, and coronary artery disease. She was admitted after she hit her foot on a vacuum glove cleaner 2 weeks ago. She had ongoing left foot pain. She was seen by podiatry. Her CTA with runoff showed short segment occlusion of distal left superficial femoral artery with reconstitution distally, good single-vessel runoff. Ms. Delgado has had no recent chest pain or shortness of breath. She had cardiac catheterization in 08/2015, which showed mild nonobstructive coronary disease. Her PET scan in 05/2017 was a low-risk study. PAST MEDICAL HISTORY: Positive for coronary disease as above, [id number] myocardial infarction, paroxysmal atrial fibrillation, hypertension, dyslipidemia, diabetes mellitus; surgery for colon polyps, appendectomy, cholecystectomy, back surgery, hysterectomy, history of DC cardioversion of atrial fibrillation, LINQ monitor placement. There is history of carotid artery stenosis with a 60% to 79% stenosis in the right carotid artery and 30% in the left internal carotid artery. CTA of the carotids showed 60% to 70% right internal carotid artery stenosis and no significant stenosis of the left internal carotid artery in 08/2017. MEDICATIONS AT HOME: Included amiodarone, Eliquis, Imdur, enalapril, hydrochlorothiazide, pravastatin, levothyroxine, multivitamin, vitamin D3, allopurinol, nitroglycerin p.r.n. ALLERGIES: HORSE SERUM. SOCIAL HISTORY: Patient does not smoke. She drinks alcohol socially. FAMILY HISTORY: Negative for heart disease. REVIEW OF SYSTEMS: Otherwise negative. PHYSICAL EXAMINATION: Blood pressure 153/67, pulse 69 and regular. HEENT: Negative. 2+ carotid upstrokes, no bruits. LUNGS: Clear. HEART: Regular with no murmur, gallop or rub. ABDOMEN: Soft, no bruits. EXTREMITIES: With left third and fourth toe cyanosis and tenderness. Diminished distal pulses. NEUROLOGIC: Grossly nonfocal. DIAGNOSES: 1. Peripheral vascular disease with left superficial femoral artery (SFA) occlusion. 2. Left third and fourth toe ischemia, possible osteomyelitis. 3. Coronary artery disease. 4. Peripheral vascular disease. 5. Paroxysmal atrial fibrillation. 6. Hypertension. 7. Dyslipidemia. 8. Diabetes mellitus. DISPOSITION: Ms. Delgado will be monitored on telemetry. She will undergo her left lower extremity revascularization by Dr. Lopez tomorrow. She can be cleared for her surgery from cardiac standpoint. I recommend to continue aggressive modification of her cardiac risk factors. I will follow her for cardiology during her hospitalization. MD LEW Andrea/DONATO , 12:49 PM , 01:19 PM IFTIKHAR
[2017-12-14 16:00] VITALS: BP 148/70; PULSE 72; RESP 17; TEMP 98.5; O2SAT 90
[2017-12-14] MEDS: SODIUM CHLOR 0.9% 1000 ML INJ 1,000 ML IV SCH (17:35)
--- NOTE | 2017-12-14 19:05 | HHI.PR ---
Subjective Remarks pt with peripheral arterial insuffiency scheduled for percutaneous intervention in am Objective Vital Signs Date Time Temp Pulse Resp B/P (MAP) Pulse Ox O2 Delivery O2 Flow Rate FiO2 12/14/17 16:00 98.5 72 17 148/70 (96) 90 12/14/17 12:00 98.5 69 18 153/67 (95) 90 12/14/17 10:15 18 12/14/17 08:00 98.5 75 17 199/88 (125) 87 12/14/17 03:32 98.2 72 18 176/79 (111) 95 12/13/17 23:36 97.9 75 20 202/94 (130) 96 12/13/17 20:00 97.8 76 20 126/78 (94) 94 I/O 12/13/17 12/13/17 12/13/17 12/14/17 12/14/17 12/14/17 07:00 15:00 23:00 07:00 15:00 23:00 Intake Total 1000 ml 1400 ml 1440 ml Output Total 200 ml 100 ml Balance 800 ml 1300 ml 1440 ml Intake Oral 500 ml 1440 ml IV Total 1000 ml 900 ml Output Urine Total 200 ml 100 ml # Voids 3 5 # Bowel Movements 0 0 Result Diagram: 12/14/17 0602 12/14/17 0602 Imaging Last Impressions Carotid Artery Ultrasound 12/12/17 0000 Signed Impressions: Service Date/Time: Tuesday, December 12, 2017 21:17 - CONCLUSION: 1. No flow again identified in the right vertebral artery which is unchanged from the prior study. 2. Bilateral plaque in the carotid bulbs and proximal internal carotid arteries with 50-69%% diameter stenosis in the right internal carotid artery and less than 50%% stenosis in the left internal carotid artery by velocity criteria. Fabián Kaplan MD Aorta w/Runoff CTA 12/11/17 0000 Signed Impressions: Service Date/Time: Monday, December 11, 2017 20:14 - CONCLUSION: 1. Short segment occlusion of the distal left superficial femoral artery with reconstitution distally of the popliteal artery. 2. There is good single vessel runoff to the left foot via the posterior tibial artery. There is also some flow in the peroneal and dorsalis pedis arteries in the proximal foot on the left. 3. No hemodynamically significant stenosis on right-sided runoff. 4. Previous fusion of the lumbar spine. No acute findings within the abdomen or pelvis. Colonic diverticulosis. Darrius Celestin MD Objective Remarks GENERAL: Well-nourished, well-developed patient. SKIN: Warm and dry. HEAD: Normocephalic. EYES: No scleral icterus. No injection or drainage. NECK: Supple, trachea midline. No JVD or lymphadenopathy. CARDIOVASCULAR: Regular rate and rhythm without murmurs, gallops, or rubs. RESPIRATORY: Breath sounds equal bilaterally. No accessory muscle use few rhonchi present. GASTROINTESTINAL: Abdomen soft, non-tender, nondistended. EXTREMITIES: No cyanosis, or edema.diminished pulase left lower ext NEUROLOGICAL: Awake, alert, and oriented x 3. Non-focal. Medications and IVs Inpatient Medications Acetaminophen (Tylenol) 650 mg Q6H PRN PO FEVER/PAIN SCALE 1 TO 2; Start at 23:30 Acetaminophen/ Hydrocodone Bitart ([place] 5-325 Mg) 1 tab Q4H PRN PO PAIN SCALE 3 TO 5 Last administered on 12/14/17at 09:14; Start 12/11/17 at 23:30 Allopurinol (Zyloprim) 100 mg BID PO Last administered on 12/14/17at 09:04; Start 12/12/17 at 09:00 Amiodarone HCl (Cordarone) 200 mg DAILY PO Last administered on 12/14/17at 09:04 ; Start 12/12/17 at 09:00 Amlodipine Besylate (Norvasc) 5 mg ONCE ONCE PO Last administered on at 13:31; Start 12/13/17 at 13:00; Stop 12/13/17 at 13:15; Status DC Apixaban (Eliquis) 2.5 mg BID PO Last administered on 12/14/17at 09:03; Start at 09:00; Status Future hold Aspirin (Ecotrin Ec) 81 mg DAILY PO Last administered on 12/14/17at 09:04; Start 12/12/17 at 09:00 Bisacodyl (Dulcolax Supp) 10 mg DAILY PRN RECTAL SEVERE CONSITIPATION; Start at 23:30 Clonidine (Catapres) 0.1 mg Q6H PRN PO SBP>180 or DBP>100; Start 12/14/17 at 10 :00 Enalapril Maleate (Vasotec) 10 mg BID PO Last administered on 12/14/17 09:04; Start 12/13/17 at 21:00 Enalaprilat (Vasotec Inj) 1.25 mg Q8H PRN IV PUSH SBP> OR = 170, DBP> OR = 100 Last administered on 12/14/17 07:21; Start 12/13/17 at 13:00 Hydralazine HCl (Apresoline) 25 mg Q8HR PO Last administered on 12/14/17 11:15 ; Start 12/14/17 at 10:00 Isosorbide Mononitrate (Imdur) 30 mg DAILY PO Last administered on 12/14/17 09 :08; Start 12/12/17 at 09:00 Lactulose (Lactulose Liq) 30 ml DAILY PRN PO SEVERE CONSITIPATION; Start at 23:30 Levothyroxine Sodium (Synthroid) 50 mcg DAILY@0600 PO Last administered on 12/14at 06:07; Start 12/12/17 at 06:00 Magnesium Hydroxide (Milk Of Magnesia Liq) 30 ml Q12H PRN PO Mild constipation ; Start 12/11/17 at 23:30 Morphine Sulfate (Morphine Inj) 4 mg Q3H PRN IV PUSH Pain 6-10;if unable to take PO Last administered on 12/14/17at 04:45; Start 12/11/17 at 23:30 Multivitamins (Theragran) 1 tab DAILY PO Last administered on 12/14/17at 09:03; Start 12/12/17 at 09:00 Ondansetron HCl (Zofran Inj) 4 mg Q6H PRN IVP NAUSEA OR VOMITING; Start at 23:30 Oxycodone/ Acetaminophen (Percocet 5-325 Mg) 1 tab ONCE ONCE PO Last administered on 12/11/17 19:31; Start 12/11/17 at 19:00; Stop 12/11/17 at 19:03 ; Status DC Pravastatin Sodium (Pravachol) 80 mg DAILY PO Last administered on 12/14/17 09 :03; Start 12/12/17 at 09:00 Senna/Docusate Sodium (Maxine-Colace) 1 tab BID PO Last administered on at 09:03; Start 12/12/17 at 09:00 Sennosides (Senokot) 17.2 mg Q12H PRN PO Moderate constipation; Start 12/11/17 at 23:30 Sodium Chloride (NS Flush) 2 ml BID IV FLUSH Last administered on 12/14/17at 09: 08; Start 12/12/17 at 09:00 Assessment and Plan Assessment and Plan PVD IR for revascularization in [place] Leukocytosis wbc [id number] will ck ua and cxr tonight had episode of sob this am will add duoneb repeat cbc bmp am Darron Muller DO Dec 14, 2017 19:05
[2017-12-14 20:00] VITALS: BP 174/79; PULSE 84; RESP 18; TEMP 98.9; O2SAT 90
--- NOTE | 2017-12-14 21:12 | PD.CAR.PN ---
CVT Progress Note Subjective/Hospital Course: Patient evaluated Full consult dictated Karolyn Velasquez 12/13/2017 As noted in my consultation patient has left SFA occlusion with reconstitution and will need either arthrectomy and stent placement or femoral-popliteal bypass Occlusion is shortened probably attempt to open it up is valid although patient has only one vessel runoff and there is a risk of distal embolization which would result in loss of the extremity We will discuss this with interventional radiologist In addition patient has bilateral carotid stenosis about 60% on the right and about 50% on the left by ultrasound She does not appear to be symptomatic at this time At some point patient will need CTA of the carotids to better understand the situation but for the time being we should concentrate on her legs depending on We will proceed with revascularization of the left leg on Thursday12/14/2017 Patient with a short segment left SFA occlusion Discussed with Dr. Brown interventional radiology. We will go ahead with arthrectomy in endovascular suite tomorrow and if that is unsuccessful patient will have a femoral-popliteal bypass I discussed with patient at length and also with Dr. Preston the radiopharmacist Objective: Vital Signs Date Time Temp Pulse Resp B/P (MAP) Pulse Ox O2 Delivery O2 Flow Rate FiO2 12/14/17 20:00 98.9 84 18 174/79 (110) 90 12/14/17 16:00 98.5 72 17 148/70 (96) 90 12/14/17 12:00 98.5 69 18 153/67 (95) 90 12/14/17 10:15 18 12/14/17 08:00 98.5 75 17 199/88 (125) 87 12/14/17 03:32 98.2 72 18 176/79 (111) 95 12/13/17 23:36 97.9 75 20 202/94 (130) 96 Result Diagram: 12/14/17 0602 12/14/17 0602 Lesvia Lopez MD Dec 14, 2017 21:12
[2017-12-14 21:45] LABS: INTERNATIONAL NORMALIZED RATIO 1.1 RATIO; PROTHROMBIN TIME - PATIENT 11.4 SEC (9.8-11.6)
--- NOTE | 2017-12-14 21:59 | RADRPT ---
EXAM DATE/TIME: 12/14/2017 21:04 [facility] COMPARISON: No previous studies available for comparison. INDICATIONS : Short of breath. MEDICAL HISTORY : None. SURGICAL HISTORY : LOOP recorder. ENCOUNTER: Initial ACUITY: 1 day PAIN SCORE: 0/10 LOCATION: Bilateral chest FINDINGS: There is a mild interstitial edema pattern and small pleural effusions. Heart size upper limits rosa l. Loop recorder in left lower anterior chest. Previous spinal fixation in the lumbar region. CONCLUSION: 1. Interstitial edema pattern with small bilateral pleural effusions. Darrius Celestin MD on December 14, 2017 at 21:55 Board Certified Radiologist. This report was verified electronically.
[2017-12-14 22:54] VITALS: BP 136/61
[2017-12-15] VITALS (10 sets, daily range): BP systolic 118–179; BP diastolic 56–84; PULSE 67–94; RESP 14–20; TEMP 97.9–98.5; O2SAT 91–97
[2017-12-15] MEDS ORDERED: CHLORHEXIDINE GLUCONATE 2 % 1 PACK (2 CLOTHS) TOPICAL PRN (01:00)
[2017-12-15] MEDS ORDERED: POVIDONE IODINE 5% (ANTISEPSIS KIT) 4 APPLICATIONS EACH NARE PRN (01:00)
[2017-12-15] MEDS ORDERED: LACTATED RINGER'S 1000 ML IV PRN (01:00)
[2017-12-15] MEDS: SODIUM CHLOR 0.9% 1000 ML INJ 1,000 ML IV SCH ×3 (01:49→17:16)
[2017-12-15] MEDS: LEVOTHYROXINE SODIUM 50 MCG TAB PO SCH (05:58)
[2017-12-15] MEDS: hydrALAZINE HCL 25 MG TAB PO SCH ×3 (05:59→21:28)
[2017-12-15 07:05] LABS: AUTOMATED NEUTROPHIL # 17.1 TH/MM3 (1.8-7.7); BASOPHIL # 0.1 TH/MM3 (0-0.2); BASOPHIL % 0.7 % (0.0-2.0); EOSINOPHIL # 0.1 TH/MM3 (0-0.4); EOSINOPHIL % 0.7 % (0.0-4.0); HEMATOCRIT 35.8 % (35.0-46.0); HEMOGLOBIN 11.9 GM/DL (11.6-15.3); LYMPH % 4.2 % (9.0-44.0); LYMPHOCYTE # 0.8 TH/MM3 (1.0-4.8); MEAN CELL VOLUME 91.1 FL (80.0-100.0); MEAN CORPUSCULAR HEMOGLOBIN 30.4 PG (27.0-34.0); MEAN CORPUSCULAR HGB CONC 33.3 % (32.0-36.0); MEAN PLATELET VOLUME 9.3 FL (7.0-11.0); MONO % 6.4 % (0.0-8.0); MONOCYTE # 1.2 TH/MM3 (0-0.9); PLATELET COUNT 498 TH/MM3 (150-450); RED BLOOD COUNT 3.92 MIL/MM3 (4.00-5.30); RED CELL DISTRIBUTION WIDTH 17.3 % (11.6-17.2); WHITE BLOOD COUNT 19.4 TH/MM3 (4.0-11.0)
[2017-12-15 07:33] LABS: CALCIUM 8.5 MG/DL (8.5-10.1); CREATININE 0.8 MG/DL (0.50-1.00)
[2017-12-15] MEDS: DOCUSATE SODIUM 50 MG/SENNA 8.6 MG TAB PO SCH ×2 (08:23→21:28)
[2017-12-15] MEDS: amLODIPine BESYLATE 5 MG TAB PO SCH (08:23)
[2017-12-15] MEDS: ISOSORBIDE MONONITRATE 30 MG CR TAB (IMDUR) PO SCH (08:23)
[2017-12-15] MEDS: MORPHINE SULFATE 2 MG/ML INJ IV PUSH PRN ×2 (08:23→22:15)
[2017-12-15] MEDS: ALLOPURINOL 100 MG TAB PO SCH ×2 (08:23→21:27)
[2017-12-15] MEDS: ASPIRIN EC 81 MG TABEC PO SCH (08:23)
[2017-12-15] MEDS: ENALAPRIL MALEATE 10 MG TAB PO SCH ×2 (08:23→21:27)
[2017-12-15] MEDS: RESP: ALBUTEROL 2.5 MG/IPRATROPIUM 0.5 MG NEB (SCH) NEB ×3 (08:23→19:27)
[2017-12-15] MEDS: PRAVASTATIN SOD 80 MG TAB PO SCH (08:24)
[2017-12-15] MEDS: MULTIVITAMIN TAB PO SCH (08:24)
[2017-12-15] MEDS: AMIODARONE 200 MG TAB PO SCH (08:24)
[2017-12-15] MEDS: SODIUM CHLORIDE 0.9% FLUSH 10 ML FLUSH IV FLUSH SCH ×2 (08:26→21:00)
--- NOTE | 2017-12-15 08:57 | HHI.PR ---
Subjective Remarks no complaints this am, waiting on procedure Objective Vital Signs Date Time Temp Pulse Resp B/P (MAP) Pulse Ox O2 Delivery O2 Flow Rate FiO2 12/15/17 08:00 98.0 84 19 171/77 (108) 92 12/15/17 06:02 155/69 (97) 12/15/17 00:00 98.1 87 20 136/61 (86) 97 12/14/17 22:54 136/61 (86) 12/14/17 21:45 18 12/14/17 20:00 98.9 84 18 174/79 (110) 90 12/14/17 16:00 98.5 72 17 148/70 (96) 90 12/14/17 12:00 98.5 69 18 153/67 (95) 90 12/14/17 10:15 18 I/O 12/14/17 12/14/17 12/14/17 12/15/17 12/15/17 12/15/17 07:00 15:00 23:00 07:00 15:00 23:00 Intake Total 1440 ml 1240 ml Balance 1440 ml 1240 ml Intake Oral 1440 ml 240 ml IV Total 1000 ml # Voids 3 5 2 # Bowel Movements 0 Result Diagram: 12/15/17 0540 12/15/17 0540 Imaging Last 72 hours Impressions Chest X-Ray 12/14/17 0000 Signed Impressions: Service Date/Time: Thursday, December 14, 2017 21:04 - CONCLUSION: 1. Interstitial edema pattern with small bilateral pleural effusions. Darrius Celestin MD Objective Remarks bjective Remarks GENERAL: Well-nourished, well-developed patient. SKIN: Warm and dry. HEAD: Normocephalic. EYES: No scleral icterus. No injection or drainage. NECK: Supple, trachea midline. No JVD or lymphadenopathy. CARDIOVASCULAR: Regular rate and rhythm without murmurs, gallops, or rubs. RESPIRATORY: Breath sounds clera equal bilaterally. No use of accessory muscle GASTROINTESTINAL: Abdomen soft, non-tender, nondistended. EXTREMITIES: No cyanosis, or edema.diminished pulse to left lower ext NEUROLOGICAL: Awake, alert, and oriented x 3. Non-focal. Medications and IVs Laboratory Tests Test 12/14/17 06:02 12/14/17 20:37 12/15/17 05:40 White Blood Count 17.8 TH/MM3 (4.0-11.0) 19.4 TH/MM3 (4.0-11.0) Platelet Count 479 TH/MM3 (150-450) 498 TH/MM3 (150-450) Neutrophils (%) (Auto) 88.8 % (16.0-70.0) 88.0 % (16.0-70.0) Lymphocytes (%) (Auto) 4.0 % (9.0-44.0) 4.2 % (9.0-44.0) Neutrophils # (Auto) 15.8 TH/MM3 (1.8-7.7) 17.1 TH/MM3 (1.8-7.7) Lymphocytes # (Auto) 0.7 TH/MM3 (1.0-4.8) 0.8 TH/MM3 (1.0-4.8) Random Glucose 131 MG/DL (74-106) Estimat Glomerular Filtration Rate 65 ML/MIN (>89) 68 ML/MIN (>89) Activated Partial Thromboplast Time 35.8 SEC (24.3-30.1) Red Blood Count 3.92 MIL/MM3 (4.00-5.30) Red Cell Distribution Width 17.3 % (11.6-17.2) Monocytes # (Auto) 1.2 TH/MM3 (0-0.9) Current Medications Medications (Trade) Dose Ordered Sig/[place] Route Start Time Stop Time Status Last Admin Sodium Chloride 1,000 ml @ 100 mls/hr Q10H IV 12/11/17 23:22 12/15/17 01:49 (NS Flush) 2 ml UNSCH PRN IV FLUSH 12/11/17 23:30 (NS Flush) 2 ml BID IV FLUSH 12/12/17 09:00 12/14/17 22:44 (Zofran Inj) 4 mg Q6H PRN IVP 12/11/17 23:30 (Tylenol) 650 mg Q6H PRN PO 12/11/17 23:30 ([place] 5-325 Mg) 1 tab Q4H PRN PO 12/11/17 23:30 12/14/17 09:14 (Morphine Inj) 4 mg Q3H PRN IV PUSH 12/11/17 23:30 3/27/18 08:23 (Maxine-Colace) 1 tab BID PO 12/12/17 09:00 12/15/17 08:23 (Milk Of Magnesia Liq) 30 ml Q12H PRN PO 12/11/17 23:30 (Senokot) 17.2 mg Q12H PRN PO 12/11/17 23:30 (Dulcolax Supp) 10 mg DAILY PRN RECTAL 12/11/17 23:30 (Lactulose Liq) 30 ml DAILY PRN PO 12/11/17 23:30 (Ecotrin Ec) 81 mg DAILY PO 12/12/17 09:00 12/15/17 08:23 (Zyloprim) 100 mg BID PO 12/12/17 09:00 12/15/17 08:23 (Cordarone) 200 mg DAILY PO 12/12/17 09:00 12/15/17 08:24 (Imdur) 30 mg DAILY PO 12/12/17 09:00 12/15/17 08:23 (Synthroid) 50 mcg DAILY@0600 PO 12/12/17 06:00 12/15/17 05:58 (Pravachol) 80 mg DAILY PO 12/12/17 09:00 12/15/17 08:24 (Theragran) 1 tab DAILY PO 12/12/17 09:00 12/15/17 08:24 (Eliquis) 2.5 mg BID PO 12/12/17 09:00 Future hold 12/14/17 09:03 (Norvasc) 10 mg DAILY PO 12/14/17 09:00 12/15/17 08:23 (Vasotec Inj) 1.25 mg Q8H PRN IV PUSH 12/13/17 13:00 12/14/17 07:21 (Vasotec) 10 mg BID PO 12/13/17 21:00 12/15/17 08:23 (Apresoline) 25 mg Q8HR PO 12/14/17 10:00 12/15/17 05:59 (Catapres) 0.1 mg Q6H PRN PO 12/14/17 10:00 (Duoneb Neb) 1 ampule Q6HR WHILE AWAKE NEB NEB 12/14/17 20:00 12/15/17 08:23 Lactated Ringer's 1,000 ml @ 30 mls/hr Q24H PRN IV 3/27/18 01:00 12/18/17 00:59 (Betadine 5% Antisepsis Kit) 1 applic [place] HAND PRN EACH NARE 12/15/17 01:00 12/18/17 00:59 (Chlorhexidine 2% Cloth) 3 pack [place] HAND PRN TOPICAL 12/15/17 01:00 12/18/17 00:59 Assessment and Plan Problem List: (1) PAD (peripheral artery disease) ICD Codes: I73.9 - Peripheral vascular disease, unspecified Plan: scheduled for revascularization today (2) CAD (coronary artery disease) ICD Codes: I25.10 - Atherosclerotic heart disease of [place] coronary artery without angina pectoris (3) Leukocytosis ICD Codes: D72.829 - Elevated white blood cell count, unspecified Plan: monitor trend, afebrile, CXR negative, UA ordered. (4) A-fib ICD Codes: I48.91 - Unspecified atrial fibrillation Status: Acute Plan: cardiology following, rate controlled, on Eliquis (5) Hypertension ICD Codes: I10 - Essential (primary) hypertension Status: Acute Plan: Cardiology following, meds adjusted, cont to monitor Discharge Planning Home at d/c Maura Mosley [facility] Dec 15, 2017 08:57
--- NOTE | 2017-12-15 10:51 | PD.CARD.PN ---
Subjective Subjective Remarks No CP or SOB, c/o L foot/toe pain Objective Medications Current Medications Medications (Trade) Dose Ordered Sig/Kalpana Route Start Time Stop Time Status Last Admin Sodium Chloride 1,000 ml @ 100 mls/hr Q10H IV 12/11/17 23:22 12/15/17 01:49 (NS Flush) 2 ml UNSCH PRN IV FLUSH 12/11/17 23:30 (NS Flush) 2 ml BID IV FLUSH 12/12/17 09:00 12/14/17 22:44 (Zofran Inj) 4 mg Q6H PRN IVP 12/11/17 23:30 (Tylenol) 650 mg Q6H PRN PO 12/11/17 23:30 ([place] 5-325 Mg) 1 tab Q4H PRN PO 12/11/17 23:30 12/14/17 09:14 (Morphine Inj) 4 mg Q3H PRN IV PUSH 12/11/17 23:30 12/15/17 08:23 (Maxine-Colace) 1 tab BID PO 12/12/17 09:00 12/15/17 08:23 (Milk Of Magnesia Liq) 30 ml Q12H PRN PO 12/11/17 23:30 (Senokot) 17.2 mg Q12H PRN PO 12/11/17 23:30 (Dulcolax Supp) 10 mg DAILY PRN RECTAL 12/11/17 23:30 (Lactulose Liq) 30 ml DAILY PRN PO 12/11/17 23:30 (Ecotrin Ec) 81 mg DAILY PO 12/12/17 09:00 12/15/17 08:23 (Zyloprim) 100 mg BID PO 12/12/17 09:00 12/15/17 08:23 (Cordarone) 200 mg DAILY PO 12/12/17 09:00 12/15/17 08:24 (Imdur) 30 mg DAILY PO 12/12/17 09:00 12/15/17 08:23 (Synthroid) 50 mcg DAILY@0600 PO 12/12/17 06:00 12/15/17 05:58 (Pravachol) 80 mg DAILY PO 12/12/17 09:00 12/15/17 08:24 (Theragran) 1 tab DAILY PO 12/12/17 09:00 12/15/17 08:24 (Eliquis) 2.5 mg BID PO 12/12/17 09:00 Future hold 12/14/17 09:03 (Norvasc) 10 mg DAILY PO 12/14/17 09:00 12/15/17 08:23 (Vasotec Inj) 1.25 mg Q8H PRN IV PUSH 12/13/17 13:00 12/14/17 07:21 (Vasotec) 10 mg BID PO 12/13/17 21:00 12/15/17 08:23 (Apresoline) 25 mg Q8HR PO 12/14/17 10:00 12/15/17 05:59 (Catapres) 0.1 mg Q6H PRN PO 12/14/17 10:00 (Duoneb Neb) 1 ampule Q6HR WHILE AWAKE NEB NEB 12/14/17 20:00 12/15/17 08:23 Lactated Ringer's 1,000 ml @ 30 mls/hr Q24H PRN IV 12/15/17 01:00 12/18/17 00:59 (Betadine 5% Antisepsis Kit) 1 applic MICROFILM CAMERA OPERATOR PRN EACH NARE 12/15/17 01:00 12/18/17 00:59 (Chlorhexidine 2% Cloth) 3 pack MICROFILM CAMERA OPERATOR PRN TOPICAL 12/15/17 01:00 12/18/17 00:59 Vital Signs / I&O Vital Signs Date Time Temp Pulse Resp B/P (MAP) Pulse Ox O2 Delivery O2 Flow Rate FiO2 12/15/17 08:28 18 12/15/17 08:00 98.0 84 19 171/77 (108) 92 12/15/17 06:02 155/69 (97) 12/15/17 00:00 98.1 87 20 136/61 (86) 97 12/14/17 22:54 136/61 (86) 12/14/17 20:00 98.9 84 18 174/79 (110) 90 12/14/17 16:00 98.5 72 17 148/70 (96) 90 12/14/17 12:00 98.5 69 18 153/67 (95) 90 I/O 12/14/17 12/14/17 12/14/17 12/15/17 12/15/17 12/15/17 07:00 15:00 23:00 07:00 15:00 23:00 Intake Total 1440 ml 1240 ml Balance 1440 ml 1240 ml Intake Oral 1440 ml 240 ml IV Total 1000 ml # Voids 3 5 2 # Bowel Movements 0 Physical Exam GENERAL: In mild distress sec to toe pain. SKIN: Warm and dry. HEAD: Normocephalic. EYES: No scleral icterus. No injection or drainage. NECK: Supple, trachea midline. No JVD or lymphadenopathy. CARDIOVASCULAR: Regular rate and rhythm without murmurs, gallops, or rubs. RESPIRATORY: Breath sounds equal bilaterally. No accessory muscle use. GASTROINTESTINAL: Abdomen soft, non-tender, nondistended. MUSCULOSKELETAL: No cyanosis, or edema. Laboratory Laboratory Tests Test 12/14/17 20:37 12/15/17 05:40 Prothrombin Time 11.4 SEC Prothromb Time International Ratio 1.1 RATIO Activated Partial Thromboplast Time 35.8 SEC White Blood Count 19.4 TH/MM3 Red Blood Count 3.92 MIL/MM3 Hemoglobin 11.9 GM/DL Hematocrit 35.8 % Mean Corpuscular Volume 91.1 FL Mean Corpuscular Hemoglobin 30.4 PG Mean Corpuscular Hemoglobin Concent 33.3 % Red Cell Distribution Width 17.3 % Platelet Count 498 TH/MM3 Mean Platelet Volume 9.3 FL Neutrophils (%) (Auto) 88.0 % Lymphocytes (%) (Auto) 4.2 % Monocytes (%) (Auto) 6.4 % Eosinophils (%) (Auto) 0.7 % Basophils (%) (Auto) 0.7 % Neutrophils # (Auto) 17.1 TH/MM3 Lymphocytes # (Auto) 0.8 TH/MM3 Monocytes # (Auto) 1.2 TH/MM3 Eosinophils # (Auto) 0.1 TH/MM3 Basophils # (Auto) 0.1 TH/MM3 CBC Comment DIFF FINAL Differential Comment Blood Urea Nitrogen 12 MG/DL Creatinine 0.80 MG/DL Random Glucose 94 MG/DL Calcium Level 8.5 MG/DL Sodium Level 139 MEQ/L Potassium Level 3.8 MEQ/L Chloride Level 106 MEQ/L Carbon Dioxide Level 23.0 MEQ/L Anion Gap 10 MEQ/L Estimat Glomerular Filtration Rate 68 ML/MIN Assessment and Plan Problem List: (1) CAD (coronary artery disease) ICD Codes: I25.10 - Atherosclerotic heart disease of [place] coronary artery without angina pectoris (2) PAD (peripheral artery disease) ICD Codes: I73.9 - Peripheral vascular disease, unspecified (3) Osteomyelitis ICD Codes: M86.9 - Osteomyelitis, unspecified Status: Acute (4) Foot pain, left ICD Codes: M79.672 - Pain in left foot Status: Acute (5) A-fib ICD Codes: I48.91 - Unspecified atrial fibrillation (6) Hyperlipidemia ICD Codes: E78.5 - Hyperlipidemia, unspecified Status: Acute (7) HTN (hypertension) ICD Codes: I10 - Essential (primary) hypertension (8) Diabetes 1.5, managed as type 2 ICD Codes: E13.9 - Other specified diabetes mellitus without complications Status: Acute Assessment and Plan No angina or CHF symptoms. RLE revascularization today. Continue aggressive risk factor modification. Monitor on tele after the procedure. Fermín Preston MD Dec 15, 2017 10:51
[2017-12-15] MEDS ORDERED: MIDAZOLAM HCL 5 MG/5 ML VIAL ONE (13:19)
[2017-12-15] MEDS ORDERED: fentaNYL CITRATE 250 MCG/5 ML AMP ONE (13:19)
[2017-12-15] MEDS ORDERED: HEPARIN SODIUM - IV 10,000 UNITS/10 ML VIAL ONE (14:07)
[2017-12-15] MEDS ORDERED: ceFAZolin 2 GM PREMIX 50 ML ONE (14:33)
[2017-12-15] MEDS ORDERED: IODIXANOL 320 MG/ML 50 ML VIAL (for RAD SPEC) IVCONTRAST ONE (15:13)
[2017-12-15] MEDS ORDERED: SODIUM CHLOR 0.9% 1000 ML INJ 1,000 ML IV SCH (15:29)
--- NOTE | 2017-12-15 17:01 | RADRPT ---
EXAM DATE/TIME: 12/15/2017 13:13 [place] COMPARISON: No previous studies available for comparison. 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 MEDICAL HISTORY : 1. PVD 2. CAD 3. HTN 4. DM 5. A fib 6. hyperlipidemia 7. arthritis SURGICAL HISTORY : 1. Cardiac ablation 2. Appenectomy 3. back surgery 4. hysterectomy 5. cholecytectomy ENCOUNTER: Initial ACUITY: 3 weeks PAIN SCORE: 0/10 FLUORO TIME: 16.7 minutes IMAGE SERIES: 17 ACCESS SITE: Right Femoral artery SEDATION TIME: 60 minutes CONTRAST: 1.) 140 cc Visipaque (iodixanol) MEDICATION(S): 1.) 2 mg midazolam (Versed) IV 2.) 100 mcg fentanyl (Sublimaze) IV 3.) 2 g cefazolin (Ancef) IV 4.) 4200 units Heparin IART Intra-procedural antibiotics were given as prescribed above. DEVICE(S): 1.) Left popliteal artery 6.0 SpideRX embolic protection 2.) Left superficial femoral artery LS-C TURBO HAWK atherectomy device 3.) Left popliteal artery LSC TurboHawk atherectomy device 4.) Right common femoral artery 8 Fijian Angio-Seal PROCEDURE : 1. Ultrasound-guided puncture of the right common femoral artery access site. 2. Angiography of the right common femoral artery access site prior to closure device. 3. Conscious sedation with continuous EKG and Oximetry monitoring. 4. Percutaneous closure of the right common femoral artery access site. 5. non-selective aortic catheterization 6. Angiography of the pelvis 7. subselective catheterization, left popliteal artery 8. Left lower extremity runoff arteriography 9. Additional selective arteriography, left popliteal artery 10. Distal protection filter utilization for left leg multifocal atherectomy 11. Left superficial femoral artery excisional atherectomy 12. Left popliteal artery excisional atherectomy TECHNIQUE: The patient was placed supine on the angiography table. The right groin was prepped in sterile fashio n. Full sterile technique was used, including cap, mask, sterile gloves and gown and a large sterile sheet. Hand hygiene and 2% chlorhexidine and/or betadine/alcohol prep was utilized per protocol for c utaneous antisepsis with appropriate dry time for site. The skin and subcutaneous tissues were infilt rated with lidocaine solution. Blunt dissection was utilized to free up the tissues superficial to th e access vessel. Ultrasound guidance was utilized using sterile gel and sterile probe cover. Under di rect ultrasound guidance, micropuncture access was accomplished into the right common femoral artery allowing placement of a 4 Fijian vascular sheath. The ultrasound images depicting access guidance wer e saved and stored to PACS for permanent record. A 4 Fijian Omni flush catheter was introduced and positioned in the low abdominal aorta. Digital subt raction pelvic arteriography was performed. The Omni Flush catheter was used to select over the aorti c bifurcation and was manipulated down into the contralateral left superficial femoral artery with th e aid of an angled Glidewire. From this catheter position, left leg runoff arteriography was accompli shed. An exchange length stiff angled Glidewire was then used to gently cross a subtotal occlusion of the mid left SFA down into the popliteal artery and the guidewire was taken down to the level of the knee joint. A 55 cm 8 Fijian Rabbe sheath was then introduced and eased across the bifurcation and down into the contralateral left superficial femoral artery. A 4 [place]ijian Glidex catheter was introduced and taken do wn into the left popliteal artery. A 6 mm SpiderFX distal protection filter was then introduced and d eployed just above the knee joint level. A TurboHGimmiek Zkatter atherectomy device was then introduced and used to perform percutaneous atherectomy o f the mid left SFA disease. Multiple passes were made with return of significant atheromatous debris. Completion arteriography revealed an excellent angiographic result. Attention was then turned to atherectomy treatment of moderate eccentric stenosis in the above-knee p opliteal artery, similarly performed with multiple passes of the device and return of significant ath eromatous debris. Completion arteriography revealed an excellent result. The distal protection filter was removed and was also found to contain significant volume of embolize d debris. Runoff was evaluated and appeared to be stable with good flow to the foot via the perineum and posterior tibial vessels. Right femoral sheath arteriography was performed to assess the femoral artery for closure. An 8 Frenc h Angio-Seal device was used to perform arteriotomy closure. The patient tolerated the procedure well and was taken to the recovery area in good stable condition. FINDINGS: No significant iliac inflow stenosis is identified on either side. The left profunda is widely patent . In the left leg, mild proximal SFA disease is present above the level of a subtotal occlusion at the mid thigh level with about 5 cm of severe stenosis in this region. Below this, an area of moderate st enotic narrowing is present in the above-knee popliteal artery. These 2 separate areas were treated s uccessfully with excisional atherectomy as described in detail above. The popliteal artery at and below the knee joint level is satisfactory in appearance. Adequate calf r unoff is present via posterior tibial and peritoneal vessels intact to the foot. The anterior tibial is proximally occluded. CONCLUSION: Uncomplicated treatment of severe femoropopliteal runoff disease on the left with multifocal excision al atherectomy as described in detail above. Scot Brown MD on December 15, 2017 at 16:46 Board Certified Radiologist. This report was verified electronically.
[2017-12-15] MEDS: APIXABAN 2.5 MG TABLET PO SCH (21:27)
[2017-12-16] VITALS: BP 144/66; PULSE 77; RESP 14; TEMP 98.1; O2SAT 91
[2017-12-16] MEDS: SODIUM CHLOR 0.9% 1000 ML INJ 1,000 ML IV SCH ×3 (03:29→21:41)
[2017-12-16 04:00] VITALS: BP 142/69; PULSE 82; RESP 14; TEMP 97.9; O2SAT 91
[2017-12-16] MEDS: hydrALAZINE HCL 25 MG TAB PO SCH ×3 (05:41→21:41)
[2017-12-16] MEDS: LEVOTHYROXINE SODIUM 50 MCG TAB PO SCH (05:41)
[2017-12-16 07:54] LABS: AUTOMATED NEUTROPHIL # 16.3 TH/MM3 (1.8-7.7); BASOPHIL # 0.2 TH/MM3 (0-0.2); BASOPHIL % 0.9 % (0.0-2.0); EOSINOPHIL # 0.3 TH/MM3 (0-0.4); EOSINOPHIL % 1.5 % (0.0-4.0); HEMATOCRIT 33.5 % (35.0-46.0); HEMOGLOBIN 11.2 GM/DL (11.6-15.3); LYMPH % 3.7 % (9.0-44.0); LYMPHOCYTE # 0.7 TH/MM3 (1.0-4.8); MEAN CELL VOLUME 90.8 FL (80.0-100.0); MEAN CORPUSCULAR HEMOGLOBIN 30.3 PG (27.0-34.0); MEAN CORPUSCULAR HGB CONC 33.4 % (32.0-36.0); MONO % 6.9 % (0.0-8.0); MONOCYTE # 1.3 TH/MM3 (0-0.9); PLATELET COUNT 594 TH/MM3 (150-450); RED BLOOD COUNT 3.69 MIL/MM3 (4.00-5.30); RED CELL DISTRIBUTION WIDTH 17.1 % (11.6-17.2); WHITE BLOOD COUNT 18.7 TH/MM3 (4.0-11.0)
[2017-12-16 08:00] VITALS: BP 173/76; PULSE 71; RESP 18; TEMP 97.1; O2SAT 95
[2017-12-16 08:03] LABS: INTERNATIONAL NORMALIZED RATIO 1.1 RATIO; PROTHROMBIN TIME - PATIENT 10.9 SEC (9.8-11.6)
[2017-12-16] MEDS: RESP: ALBUTEROL 2.5 MG/IPRATROPIUM 0.5 MG NEB (SCH) NEB ×3 (08:04→20:26)
[2017-12-16 08:21] LABS: BICARBONATE 21.7 MEQ/L (21.0-32.0); CALCIUM 8.5 MG/DL (8.5-10.1); CREATININE 0.72 MG/DL (0.50-1.00)
[2017-12-16] MEDS: MORPHINE SULFATE 2 MG/ML INJ IV PUSH PRN ×2 (08:34→20:02)
[2017-12-16] MEDS: APIXABAN 2.5 MG TABLET PO SCH ×2 (08:35→19:53)
[2017-12-16] MEDS: ASPIRIN EC 81 MG TABEC PO SCH (08:35)
[2017-12-16] MEDS: ENALAPRIL MALEATE 10 MG TAB PO SCH ×2 (08:37→19:53)
[2017-12-16] MEDS: MULTIVITAMIN TAB PO SCH (08:37)
[2017-12-16] MEDS: ALLOPURINOL 100 MG TAB PO SCH ×2 (08:37→19:53)
[2017-12-16] MEDS: AMIODARONE 200 MG TAB PO SCH (08:37)
[2017-12-16] MEDS: amLODIPine BESYLATE 5 MG TAB PO SCH (08:37)
[2017-12-16] MEDS: DOCUSATE SODIUM 50 MG/SENNA 8.6 MG TAB PO SCH ×2 (08:37→19:53)
[2017-12-16] MEDS: PRAVASTATIN SOD 80 MG TAB PO SCH (08:38)
[2017-12-16] MEDS: ISOSORBIDE MONONITRATE 30 MG CR TAB (IMDUR) PO SCH (08:47)
[2017-12-16] MEDS: SODIUM CHLORIDE 0.9% FLUSH 10 ML FLUSH IV FLUSH SCH ×2 (08:47→19:53)
--- NOTE | 2017-12-16 08:50 | HHI.PR ---
Subjective Remarks back hurts r/t having to stay on back cause of right groin oozing blood. Objective Vital Signs Date Time Temp Pulse Resp B/P (MAP) Pulse Ox O2 Delivery O2 Flow Rate FiO2 12/16/17 08:00 97.1 71 18 173/76 (108) 95 12/16/17 04:00 97.9 82 14 142/69 (93) 91 12/16/17 00:00 98.1 77 14 144/66 (92) 91 12/15/17 20:00 97.9 86 14 179/77 (111) 91 12/15/17 16:45 67 17 146/72 (96) 92 12/15/17 16:15 94 18 139/84 (102) 94 12/15/17 16:00 98.5 72 17 158/74 (102) 92 12/15/17 16:00 68 17 145/71 (95) 96 12/15/17 15:45 67 16 142/67 (92) 97 12/15/17 15:30 98.2 68 17 142/62 (88) 94 12/15/17 12:00 98.2 72 18 118/56 (76) 92 I/O 12/15/17 12/15/17 12/15/17 12/16/17 12/16/17 12/16/17 07:00 15:00 23:00 07:00 15:00 23:00 Intake Total 1240 ml 240 ml 1120 ml Output Total 1050 ml 900 ml Balance 1240 ml -810 ml 220 ml Intake Oral 240 ml 240 ml 120 ml IV Total 1000 ml 1000 ml Output Urine Total 1050 ml 900 ml # Voids 2 3 # Bowel Movements 1 0 Result Diagram: 12/16/17 0738 12/16/17 0738 Procedures 12/15/17 Angioplasty Objective Remarks bjective Remarks GENERAL: Well-nourished, well-developed patient. SKIN: Warm and dry. HEAD: Normocephalic. EYES: No scleral icterus. No injection or drainage. NECK: Supple, trachea midline. No JVD or lymphadenopathy. CARDIOVASCULAR: Regular rate and rhythm without murmurs, gallops, or rubs. RESPIRATORY: Breath sounds clera equal bilaterally. No use of accessory muscle GASTROINTESTINAL: Abdomen soft, non-tender, nondistended. EXTREMITIES: No cyanosis, or edema.diminished pulse to left lower ext, r groin with pressure bag NEUROLOGICAL: Awake, alert, and oriented x 3. Non-focal. Medications and IVs Current Medications Medications (Trade) Dose Ordered Sig/[place] Route Start Time Stop Time Status Last Admin Sodium Chloride 1,000 ml @ 100 mls/hr Q10H IV 12/11/17 23:22 12/16/17 03:29 (NS Flush) 2 ml UNSCH PRN IV FLUSH 12/11/17 23:30 (NS Flush) 2 ml BID IV FLUSH 12/12/17 09:00 12/14/17 22:44 (Zofran Inj) 4 mg Q6H PRN IVP 12/11/17 23:30 (Tylenol) 650 mg Q6H PRN PO 12/11/17 23:30 ([place] 5-325 Mg) 1 tab Q4H PRN PO 12/11/17 23:30 12/14/17 09:14 (Morphine Inj) 4 mg Q3H PRN IV PUSH 12/11/17 23:30 12/15/17 22:15 (Maxine-Colace) 1 tab BID PO 12/12/17 09:00 12/15/17 21:28 (Milk Of Magnesia Liq) 30 ml Q12H PRN PO 12/11/17 23:30 (Senokot) 17.2 mg Q12H PRN PO 12/11/17 23:30 (Dulcolax Supp) 10 mg DAILY PRN RECTAL 12/11/17 23:30 (Lactulose Liq) 30 ml DAILY PRN PO 12/11/17 23:30 (Ecotrin Ec) 81 mg DAILY PO 12/12/17 09:00 12/15/17 08:23 (Zyloprim) 100 mg BID PO 12/12/17 09:00 12/15/17 21:27 (Cordarone) 200 mg DAILY PO 12/12/17 09:00 12/15/17 08:24 (Imdur) 30 mg DAILY PO 12/12/17 09:00 12/15/17 08:23 (Synthroid) 50 mcg DAILY@0600 PO 12/12/17 06:00 12/16/17 05:41 (Pravachol) 80 mg DAILY PO 12/12/17 09:00 12/15/17 08:24 (Theragran) 1 tab DAILY PO 12/12/17 09:00 12/15/17 08:24 (Norvasc) 10 mg DAILY PO 12/14/17 09:00 12/15/17 08:23 (Vasotec Inj) 1.25 mg Q8H PRN IV PUSH 12/13/17 13:00 12/14/17 07:21 (Vasotec) 10 mg BID PO 12/13/17 21:00 12/15/17 21:27 (Apresoline) 25 mg Q8HR PO 12/14/17 10:00 12/16/17 05:41 (Catapres) 0.1 mg Q6H PRN PO 12/14/17 10:00 (Duoneb Neb) 1 ampule Q6HR WHILE AWAKE NEB NEB 12/14/17 20:00 12/16/17 08:04 Lactated Ringer's 1,000 ml @ 30 mls/hr Q24H PRN IV 12/15/17 01:00 12/18/17 00:59 (Betadine 5% Antisepsis Kit) 1 applic MANAGEMENT ACCOUNTANT PRN EACH NARE 12/15/17 01:00 12/18/17 00:59 (Chlorhexidine 2% Cloth) 3 pack MANAGEMENT ACCOUNTANT PRN TOPICAL 12/15/17 01:00 12/18/17 00:59 (Eliquis) 2.5 mg BID PO 12/15/17 21:00 12/15/17 21:27 Assessment and Plan Problem List: (1) PAD (peripheral artery disease) ICD Codes: I73.9 - Peripheral vascular disease, unspecified Plan: sent for revascularization yesterday Site oozing blood, pressure weight in place. (2) CAD (coronary artery disease) ICD Codes: I25.10 - Atherosclerotic heart disease of [place] coronary artery without angina pectoris (3) Leukocytosis ICD Codes: D72.829 - Elevated white blood cell count, unspecified Plan: monitor trend, afebrile, CXR negative. WBC 18.7, slightly down this am (4) A-fib ICD Codes: I48.91 - Unspecified atrial fibrillation Status: Acute Plan: cardiology following, rate controlled, on Eliquis (5) Hypertension ICD Codes: I10 - Essential (primary) hypertension Status: Acute Plan: Cardiology following, meds adjusted, cont to monitor Discharge Planning Home when cleared by cardiology Maura Mosley Dec 16, 2017 08:50
--- NOTE | 2017-12-16 09:48 | PD.WCN.NOT ---
Wound Consult Description: Wound consult ordered by Recommendation: Please refer to Podiatry orders Additional Information: Patient was not seen due to being under the current specialized care of Podiatry and Vascular Surgeon. Brayan Thacker [facility] Dec 16, 2017 09:48
--- NOTE | 2017-12-16 11:04 | PD.CARD.PN ---
Subjective Subjective Remarks No CP or SOB, good revascularization result, mild R groin bleeding Objective Medications Current Medications Medications (Trade) Dose Ordered Sig/[place] Route Start Time Stop Time Status Last Admin Sodium Chloride 1,000 ml @ 100 mls/hr Q10H IV 12/11/17 23:22 12/16/17 03:29 (NS Flush) 2 ml UNSCH PRN IV FLUSH 12/11/17 23:30 (NS Flush) 2 ml BID IV FLUSH 12/12/17 09:00 12/14/17 22:44 (Zofran Inj) 4 mg Q6H PRN IVP 12/11/17 23:30 (Tylenol) 650 mg Q6H PRN PO 12/11/17 23:30 ([place] 5-325 Mg) 1 tab Q4H PRN PO 12/11/17 23:30 12/14/17 09:14 (Morphine Inj) 4 mg Q3H PRN IV PUSH 12/11/17 23:30 12/16/17 08:34 (Maxine-Colace) 1 tab BID PO 12/12/17 09:00 12/16/17 08:37 (Milk Of Magnesia Liq) 30 ml Q12H PRN PO 12/11/17 23:30 (Senokot) 17.2 mg Q12H PRN PO 12/11/17 23:30 (Dulcolax Supp) 10 mg DAILY PRN RECTAL 12/11/17 23:30 (Lactulose Liq) 30 ml DAILY PRN PO 12/11/17 23:30 (Ecotrin Ec) 81 mg DAILY PO 12/12/17 09:00 12/16/17 08:35 (Zyloprim) 100 mg BID PO 12/12/17 09:00 12/16/17 08:37 (Cordarone) 200 mg DAILY PO 12/12/17 09:00 12/16/17 08:37 (Imdur) 30 mg DAILY PO 12/12/17 09:00 12/16/17 08:47 (Synthroid) 50 mcg DAILY@0600 PO 12/12/17 06:00 12/16/17 05:41 (Pravachol) 80 mg DAILY PO 12/12/17 09:00 12/16/17 08:38 (Theragran) 1 tab DAILY PO 12/12/17 09:00 12/16/17 08:37 (Norvasc) 10 mg DAILY PO 12/14/17 09:00 12/16/17 08:37 (Vasotec Inj) 1.25 mg Q8H PRN IV PUSH 12/13/17 13:00 12/14/17 07:21 (Vasotec) 10 mg BID PO 12/13/17 21:00 12/16/17 08:37 (Apresoline) 25 mg Q8HR PO 12/14/17 10:00 12/16/17 05:41 (Catapres) 0.1 mg Q6H PRN PO 12/14/17 10:00 (Duoneb Neb) 1 ampule Q6HR WHILE AWAKE NEB NEB 12/14/17 20:00 12/16/17 08:04 Lactated Ringer's 1,000 ml @ 30 mls/hr Q24H PRN IV 12/15/17 01:00 12/18/17 00:59 (Betadine 5% Antisepsis Kit) 1 applic PROOFER PRN EACH NARE 12/15/17 01:00 12/18/17 00:59 (Chlorhexidine 2% Cloth) 3 pack PROOFER PRN TOPICAL 12/15/17 01:00 12/18/17 00:59 (Eliquis) 2.5 mg BID PO 12/15/17 21:00 12/16/17 08:35 Vital Signs / I&O Vital Signs Date Time Temp Pulse Resp B/P (MAP) Pulse Ox O2 Delivery O2 Flow Rate FiO2 12/16/17 08:39 18 12/16/17 08:00 97.1 71 18 173/76 (108) 95 12/16/17 04:00 97.9 82 14 142/69 (93) 91 12/16/17 00:00 98.1 77 14 144/66 (92) 91 12/15/17 20:00 97.9 86 14 179/77 (111) 91 12/15/17 16:45 67 17 146/72 (96) 92 12/15/17 16:15 94 18 139/84 (102) 94 12/15/17 16:00 98.5 72 17 158/74 (102) 92 12/15/17 16:00 68 17 145/71 (95) 96 3/27/18 15:45 67 16 142/67 (92) 97 12/15/17 15:30 98.2 68 17 142/62 (88) 94 12/15/17 12:00 98.2 72 18 118/56 (76) 92 I/O 12/15/17 12/15/17 12/15/17 12/16/17 12/16/17 12/16/17 07:00 15:00 23:00 07:00 15:00 23:00 Intake Total 1240 ml 240 ml 1120 ml Output Total 1050 ml 900 ml Balance 1240 ml -810 ml 220 ml Intake Oral 240 ml 240 ml 120 ml IV Total 1000 ml 1000 ml Output Urine Total 1050 ml 900 ml # Voids 2 3 # Bowel Movements 1 0 Physical Exam GENERAL: In NAD SKIN: Warm and dry. HEAD: Normocephalic. EYES: No scleral icterus. No injection or drainage. NECK: Supple, trachea midline. No JVD or lymphadenopathy. CARDIOVASCULAR: Regular rate and rhythm without murmurs, gallops, or rubs. RESPIRATORY: Breath sounds equal bilaterally. No accessory muscle use. GASTROINTESTINAL: Abdomen soft, non-tender, nondistended. MUSCULOSKELETAL: No cyanosis, or edema. Minimal R groin bleeding, no significant hematoma Laboratory Laboratory Tests Test 12/16/17 07:38 White Blood Count 18.7 TH/MM3 Red Blood Count 3.69 MIL/MM3 Hemoglobin 11.2 GM/DL Hematocrit 33.5 % Mean Corpuscular Volume 90.8 FL Mean Corpuscular Hemoglobin 30.3 PG Mean Corpuscular Hemoglobin Concent 33.4 % Red Cell Distribution Width 17.1 % Platelet Count 594 TH/MM3 Mean Platelet Volume 9.0 FL Neutrophils (%) (Auto) 87.0 % Lymphocytes (%) (Auto) 3.7 % Monocytes (%) (Auto) 6.9 % Eosinophils (%) (Auto) 1.5 % Basophils (%) (Auto) 0.9 % Neutrophils # (Auto) 16.3 TH/MM3 Lymphocytes # (Auto) 0.7 TH/MM3 Monocytes # (Auto) 1.3 TH/MM3 Eosinophils # (Auto) 0.3 TH/MM3 Basophils # (Auto) 0.2 TH/MM3 CBC Comment DIFF FINAL Differential Comment Prothrombin Time 10.9 SEC Prothromb Time International Ratio 1.1 RATIO Blood Urea Nitrogen 13 MG/DL Creatinine 0.72 MG/DL Random Glucose 95 MG/DL Calcium Level 8.5 MG/DL Sodium Level 140 MEQ/L Potassium Level 3.8 MEQ/L Chloride Level 109 MEQ/L Carbon Dioxide Level 21.7 MEQ/L Anion Gap 9 MEQ/L Estimat Glomerular Filtration Rate 77 ML/MIN Assessment and Plan Problem List: (1) CAD (coronary artery disease) ICD Codes: I25.10 - Atherosclerotic heart disease of [place] coronary artery without angina pectoris (2) PAD (peripheral artery disease) ICD Codes: I73.9 - Peripheral vascular disease, unspecified (3) Osteomyelitis ICD Codes: M86.9 - Osteomyelitis, unspecified Status: Acute (4) Foot pain, left ICD Codes: M79.672 - Pain in left foot Status: Acute (5) A-fib ICD Codes: I48.91 - Unspecified atrial fibrillation (6) Hyperlipidemia ICD Codes: E78.5 - Hyperlipidemia, unspecified Status: Acute (7) HTN (hypertension) ICD Codes: I10 - Essential (primary) hypertension (8) Diabetes 1.5, managed as type 2 ICD Codes: E13.9 - Other specified diabetes mellitus without complications Status: Acute Assessment and Plan No angina or CHF symptoms. RLE revascularization successful. Continue aggressive risk factor modification. Remains stable from cardiac standpoint. Increase activity once off bedrest. Monitor on telemetry. Fermín Preston MD Dec 16, 2017 11:04
[2017-12-16 12:00] VITALS: BP 140/64; PULSE 76; RESP 18; TEMP 98; O2SAT 91
--- NOTE | 2017-12-16 12:59 | PD.CAR.PN ---
CVT Progress Note Subjective/Hospital Course: Patient evaluated Full consult dictated Karolyn Velasquez 12/13/2017 As noted in my consultation patient has left SFA occlusion with reconstitution and will need either arthrectomy and stent placement or femoral-popliteal bypass Occlusion is shortened probably attempt to open it up is valid although patient has only one vessel runoff and there is a risk of distal embolization which would result in loss of the extremity We will discuss this with interventional radiologist In addition patient has bilateral carotid stenosis about 60% on the right and about 50% on the left by ultrasound She does not appear to be symptomatic at this time At some point patient will need CTA of the carotids to better understand the situation but for the time being we should concentrate on her legs depending on We will proceed with revascularization of the left leg on Thursday12/14/2017 Patient with a short segment left SFA occlusion Discussed with Dr. Brown interventional radiology. We will go ahead with arthrectomy in endovascular suite tomorrow and if that is unsuccessful patient will have a femoral-popliteal bypass I discussed with patient at length and also with Dr. Preston the demi chef 12/16/2017 Patient status post left SFA [place] arthrectomy and angioplasty Foot is warm Left groin entry site is clean and dry Patient can be discharged from our point any time Nothing to add from vascular surgery and interventional radiology point Patient can remain on Eliquis Objective: Vital Signs Date Time Temp Pulse Resp B/P (MAP) Pulse Ox O2 Delivery O2 Flow Rate FiO2 12/16/17 12:00 98.0 76 18 140/64 (89) 91 12/16/17 08:39 18 12/16/17 08:00 97.1 71 18 173/76 (108) 95 12/16/17 04:00 97.9 82 14 142/69 (93) 91 12/16/17 00:00 98.1 77 14 144/66 (92) 91 12/15/17 20:00 97.9 86 14 179/77 (111) 91 12/15/17 16:45 67 17 146/72 (96) 92 12/15/17 16:15 94 18 139/84 (102) 94 12/15/17 16:00 98.5 72 17 158/74 (102) 92 12/15/17 16:00 68 17 145/71 (95) 96 12/15/17 15:45 67 16 142/67 (92) 97 12/15/17 15:30 98.2 68 17 142/62 (88 94 Labs: Laboratory Tests Test 12/16/17 07:38 White Blood Count 18.7 TH/MM3 (4.0-11.0) Red Blood Count 3.69 MIL/MM3 (4.00-5.30) Hemoglobin 11.2 GM/DL (11.6-15.3) Hematocrit 33.5 % (35.0-46.0) Mean Corpuscular Volume 90.8 FL (80.0-100.0) Mean Corpuscular Hemoglobin 30.3 PG (27.0-34.0) Mean Corpuscular Hemoglobin Concent 33.4 % (32.0-36.0) Red Cell Distribution Width 17.1 % (11.6-17.2) Platelet Count 594 TH/MM3 (150-450) Mean Platelet Volume 9.0 FL (7.0-11.0) Neutrophils (%) (Auto) 87.0 % (16.0-70.0) Lymphocytes (%) (Auto) 3.7 % (9.0-44.0) Monocytes (%) (Auto) 6.9 % (0.0-8.0) Eosinophils (%) (Auto) 1.5 % (0.0-4.0) Basophils (%) (Auto) 0.9 % (0.0-2.0) Neutrophils # (Auto) 16.3 TH/MM3 (1.8-7.7) Lymphocytes # (Auto) 0.7 TH/MM3 (1.0-4.8) Monocytes # (Auto) 1.3 TH/MM3 (0-0.9) Eosinophils # (Auto) 0.3 TH/MM3 (0-0.4) Basophils # (Auto) 0.2 TH/MM3 (0-0.2) CBC Comment DIFF FINAL Differential Comment Prothrombin Time 10.9 SEC (9.8-11.6) Prothromb Time International Ratio 1.1 RATIO Blood Urea Nitrogen 13 MG/DL (7-18) Creatinine 0.72 MG/DL (0.50-1.00) Random Glucose 95 MG/DL (74-106) Calcium Level 8.5 MG/DL (8.5-10.1) Sodium Level 140 MEQ/L (136-145) Potassium Level 3.8 MEQ/L (3.5-5.1) Chloride Level 109 MEQ/L (98-107) Carbon Dioxide Level 21.7 MEQ/L (21.0-32.0) Anion Gap 9 MEQ/L (5-15) Estimat Glomerular Filtration Rate 77 ML/MIN (>89) Result Diagram: 12/16/17 0738 12/16/17 0738 Lesvia Lopez MD Dec 16, 2017 12:59
[2017-12-16 16:00] VITALS: BP 132/62; PULSE 78; RESP 18; TEMP 98.4; O2SAT 92
--- NOTE | 2017-12-16 18:42 | PD.POD ---
Subjective Podiatric Problems Pt is s/p LLE revascularization. She states that the fourth toe remains very sensitive. Past Med/Surg/Social History Social History Smoking Status: Never Smoker Objective Vital Signs Vital Signs Date Time Temp Pulse Resp B/P (MAP) Pulse Ox O2 Delivery O2 Flow Rate FiO2 12/16/17 16:00 98.4 78 18 132/62 (85) 92 12/16/17 12:00 98.0 76 18 140/64 (89) 91 12/16/17 08:39 18 12/16/17 08:00 97.1 71 18 173/76 (108) 95 12/16/17 04:00 97.9 82 14 142/69 (93) 91 12/16/17 00:00 98.1 77 14 144/66 (92) 91 12/15/17 20:00 97.9 86 14 179/77 (111) 91 Coded Allergies: Horse/Equine Containing Products (Unverified Allergy, Severe, HIVES, ) Physical Exam Remarks Left foot feels warm and well perfused. CFT < 3secs. Gross sensation is intact. Slight blueish ischemia noted to plantar aspect of distal 4th toe, no signs of gangrene or demarcated tissue. Assessment & Plan A/P 1) Left 4th toe ischemia - Pts revascularization appears to have been successful, but it is too early to fully determine. The toe is stable and can be monitored as an outpt. Ok for d/c from podiatry standpoint. Follow up with in 5-7 days after discharge. Katelyn Sahu DPM Dec 16, 2017 18:42
[2017-12-16 20:00] VITALS: BP 133/60; PULSE 80; RESP 22; TEMP 97.7; O2SAT 93
[2017-12-16] MEDS ORDERED: LOPERAMIDE HCL 2 MG CAP PO PRN (21:15)
[2017-12-17] VITALS (9 sets, daily range): BP systolic 118–193; BP diastolic 58–118; PULSE 75–85; RESP 18–22; TEMP 97.5–98.3; O2SAT 92–96
[2017-12-17] MEDS: hydrALAZINE HCL 25 MG TAB PO SCH ×3 (05:38→20:54)
[2017-12-17] MEDS: LEVOTHYROXINE SODIUM 50 MCG TAB PO SCH (05:38)
[2017-12-17 06:19] LABS: AUTOMATED NEUTROPHIL # 14.4 TH/MM3 (1.8-7.7); BASOPHIL # 0.2 TH/MM3 (0-0.2); BASOPHIL % 1.1 % (0.0-2.0); EOSINOPHIL # 0.5 TH/MM3 (0-0.4); EOSINOPHIL % 3.1 % (0.0-4.0); HEMOGLOBIN 11.1 GM/DL (11.6-15.3); LYMPH % 3.7 % (9.0-44.0); LYMPHOCYTE # 0.6 TH/MM3 (1.0-4.8); MEAN CELL VOLUME 90.1 FL (80.0-100.0); MEAN CORPUSCULAR HEMOGLOBIN 30.3 PG (27.0-34.0); MEAN CORPUSCULAR HGB CONC 33.6 % (32.0-36.0); MONO % 7.2 % (0.0-8.0); MONOCYTE # 1.2 TH/MM3 (0-0.9); NEUT % 84.9 % (16.0-70.0); PLATELET COUNT 665 TH/MM3 (150-450); RED BLOOD COUNT 3.66 MIL/MM3 (4.00-5.30); RED CELL DISTRIBUTION WIDTH 17.3 % (11.6-17.2); WHITE BLOOD COUNT 16.9 TH/MM3 (4.0-11.0)
[2017-12-17 06:44] LABS: BICARBONATE 22.4 MEQ/L (21.0-32.0); CALCIUM 8.3 MG/DL (8.5-10.1); CREATININE 0.73 MG/DL (0.50-1.00)
[2017-12-17] MEDS: ALLOPURINOL 100 MG TAB PO SCH ×2 (07:57→20:54)
[2017-12-17] MEDS: PRAVASTATIN SOD 80 MG TAB PO SCH (07:58)
[2017-12-17] MEDS: amLODIPine BESYLATE 5 MG TAB PO SCH (07:58)
[2017-12-17] MEDS: APIXABAN 2.5 MG TABLET PO SCH ×2 (07:58→20:53)
[2017-12-17] MEDS: DOCUSATE SODIUM 50 MG/SENNA 8.6 MG TAB PO SCH ×2 (07:58→20:53)
[2017-12-17] MEDS: MULTIVITAMIN TAB PO SCH (07:58)
[2017-12-17] MEDS: ISOSORBIDE MONONITRATE 30 MG CR TAB (IMDUR) PO SCH (07:58)
[2017-12-17] MEDS: ASPIRIN EC 81 MG TABEC PO SCH (07:58)
[2017-12-17] MEDS: AMIODARONE 200 MG TAB PO SCH (07:58)
[2017-12-17] MEDS: ENALAPRIL MALEATE 10 MG TAB PO SCH ×2 (08:00→20:54)
[2017-12-17] MEDS: SODIUM CHLOR 0.9% 1000 ML INJ 1,000 ML IV SCH ×2 (08:00→19:22)
[2017-12-17] MEDS: RESP: ALBUTEROL 2.5 MG/IPRATROPIUM 0.5 MG NEB (SCH) NEB ×3 (08:00→19:47)
[2017-12-17] MEDS: SODIUM CHLORIDE 0.9% FLUSH 10 ML FLUSH IV FLUSH SCH ×2 (08:01→21:01)
--- NOTE | 2017-12-17 14:08 | PD.CARD.PN ---
Subjective Subjective Remarks No CP or SOB, feels better Objective Medications Current Medications Medications (Trade) Dose Ordered Sig/[place] Route Start Time Stop Time Status Last Admin Sodium Chloride 1,000 ml @ 100 mls/hr Q10H IV 12/11/17 23:22 12/17/17 08:00 (NS Flush) 2 ml UNSCH PRN IV FLUSH 12/11/17 23:30 (NS Flush) 2 ml BID IV FLUSH 12/12/17 09:00 12/14/17 22:44 (Zofran Inj) 4 mg Q6H PRN IVP 12/11/17 23:30 (Tylenol) 650 mg Q6H PRN PO 12/11/17 23:30 (Seanor 5-325 Mg) 1 tab Q4H PRN PO 12/11/17 23:30 12/14/17 09:14 (Morphine Inj) 4 mg Q3H PRN IV PUSH 12/11/17 23:30 12/16/17 20:02 (Maxine-Colace) 1 tab BID PO 12/12/17 09:00 12/16/17 08:37 (Milk Of Magnesia Liq) 30 ml Q12H PRN PO 12/11/17 23:30 (Senokot) 17.2 mg Q12H PRN PO 12/11/17 23:30 (Dulcolax Supp) 10 mg DAILY PRN RECTAL 12/11/17 23:30 (Lactulose Liq) 30 ml DAILY PRN PO 12/11/17 23:30 (Ecotrin Ec) 81 mg DAILY PO 12/12/17 09:00 12/17/17 07:58 (Zyloprim) 100 mg BID PO 12/12/17 09:00 12/17/17 07:57 (Cordarone) 200 mg DAILY PO 12/12/17 09:00 12/17/17 07:58 (Imdur) 30 mg DAILY PO 12/12/17 09:00 12/17/17 07:58 (Synthroid) 50 mcg DAILY@0600 PO 12/12/17 06:00 12/17/17 05:38 (Pravachol) 80 mg DAILY PO 12/12/17 09:00 12/17/17 07:58 (Theragran) 1 tab DAILY PO 12/12/17 09:00 12/17/17 07:58 (Norvasc) 10 mg DAILY PO 12/14/17 09:00 12/17/17 07:58 (Vasotec Inj) 1.25 mg Q8H PRN IV PUSH 12/13/17 13:00 12/14/17 07:21 (Vasotec) 10 mg BID PO 12/13/17 21:00 12/17/17 08:00 (Apresoline) 25 mg Q8HR PO 12/14/17 10:00 12/17/17 05:38 (Catapres) 0.1 mg Q6H PRN PO 12/14/17 10:00 (Duoneb Neb) 1 ampule Q6HR WHILE AWAKE NEB NEB 12/14/17 20:00 12/17/17 11:51 Lactated Ringer's 1,000 ml @ 30 mls/hr Q24H PRN IV 12/15/17 01:00 12/18/17 00:59 (Betadine 5% Antisepsis Kit) 1 applic FLIGHT FOLLOWER PRN EACH NARE 12/15/17 01:00 12/18/17 00:59 (Chlorhexidine 2% Cloth) 3 pack FLIGHT FOLLOWER PRN TOPICAL 12/15/17 01:00 12/18/17 00:59 (Eliquis) 2.5 mg BID PO 12/15/17 21:00 12/17/17 07:58 (Imodium) 2 mg QID PRN PO 12/16/17 21:15 Vital Signs / I&O Vital Signs Date Time Temp Pulse Resp B/P (MAP) Pulse Ox O2 Delivery O2 Flow Rate FiO2 12/17/17 13:55 3.00 12/17/17 12:03 97.5 75 18 169/79 (109) 94 12/17/17 09:00 155/68 (97) 12/17/17 08:15 95 Nasal Cannula 2.00 12/17/17 08:00 97.8 85 20 193/118 (143) 93 12/17/17 04:00 97.8 76 22 162/77 (105) 94 12/17/17 00:00 98.3 78 22 118/58 (78) 93 12/16/17 20:00 97.7 80 22 133/60 (84) 93 12/16/17 16:00 98.4 78 18 132/62 (85) 92 I/O 12/16/17 12/16/17 12/16/17 12/17/17 12/17/17 12/17/17 07:00 15:00 23:00 07:00 15:00 23:00 Intake Total 1120 ml 1720 ml 360 ml Output Total 900 ml 400 ml Balance 220 ml 1320 ml 360 ml Intake Oral 120 ml 720 ml 360 ml IV Total 1000 ml 1000 ml Output Urine Total 900 ml 400 ml # Voids 3 3 # Bowel Movements 0 1 3 Physical Exam GENERAL: In NAD SKIN: Warm and dry. HEAD: Normocephalic. EYES: No scleral icterus. No injection or drainage. NECK: Supple, trachea midline. No JVD or lymphadenopathy. CARDIOVASCULAR: Regular rate and rhythm without murmurs, gallops, or rubs. RESPIRATORY: Breath sounds equal bilaterally. No accessory muscle use. GASTROINTESTINAL: Abdomen soft, non-tender, nondistended. MUSCULOSKELETAL: No cyanosis, or edema. R groin stable, no significant hematoma Laboratory Laboratory Tests Test 12/17/17 05:35 White Blood Count 16.9 TH/MM3 Red Blood Count 3.66 MIL/MM3 Hemoglobin 11.1 GM/DL Hematocrit 33.0 % Mean Corpuscular Volume 90.1 FL Mean Corpuscular Hemoglobin 30.3 PG Mean Corpuscular Hemoglobin Concent 33.6 % Red Cell Distribution Width 17.3 % Platelet Count 665 TH/MM3 Mean Platelet Volume 9.0 FL Neutrophils (%) (Auto) 84.9 % Lymphocytes (%) (Auto) 3.7 % Monocytes (%) (Auto) 7.2 % Eosinophils (%) (Auto) 3.1 % Basophils (%) (Auto) 1.1 % Neutrophils # (Auto) 14.4 TH/MM3 Lymphocytes # (Auto) 0.6 TH/MM3 Monocytes # (Auto) 1.2 TH/MM3 Eosinophils # (Auto) 0.5 TH/MM3 Basophils # (Auto) 0.2 TH/MM3 CBC Comment DIFF FINAL Differential Comment Blood Urea Nitrogen 12 MG/DL Creatinine 0.73 MG/DL Random Glucose 115 MG/DL Calcium Level 8.3 MG/DL Sodium Level 142 MEQ/L Potassium Level 3.7 MEQ/L Chloride Level 111 MEQ/L Carbon Dioxide Level 22.4 MEQ/L Anion Gap 9 MEQ/L Estimat Glomerular Filtration Rate 76 ML/MIN Assessment and Plan Problem List: (1) CAD (coronary artery disease) ICD Codes: I25.10 - Atherosclerotic heart disease of [place] coronary artery without angina pectoris (2) PAD (peripheral artery disease) ICD Codes: I73.9 - Peripheral vascular disease, unspecified (3) Osteomyelitis ICD Codes: M86.9 - Osteomyelitis, unspecified Status: Acute (4) Foot pain, left ICD Codes: M79.672 - Pain in left foot Status: Acute (5) A-fib ICD Codes: I48.91 - Unspecified atrial fibrillation (6) Hyperlipidemia ICD Codes: E78.5 - Hyperlipidemia, unspecified Status: Acute (7) HTN (hypertension) ICD Codes: I10 - Essential (primary) hypertension (8) Diabetes 1.5, managed as type 2 ICD Codes: E13.9 - Other specified diabetes mellitus without complications Status: Acute Assessment and Plan No new cardiac issues. No angina or CHF symptoms. RLE revascularization successful. Continue aggressive risk factor modification. Remains stable from cardiac standpoint. DC home as planned. Will schedule outpt card f/u. Fermín Preston MD Dec 17, 2017 14:08
[2017-12-17] MEDS ORDERED: OXYGENDME NAS.CANULA (15:55)
--- NOTE | 2017-12-17 15:57 | HHI.FF ---
Face to Face Verification Diagnosis: (1) A-fib (2) CAD (coronary artery disease) (3) Pulmonary edema (4) PAD (peripheral artery disease) (5) SOB (shortness of breath) Home Health Nursing Order: Signs/symptoms of disease process Oxygen administration education I have seen patient Eboni Delgado on 12/17/17. My clinical findings support the need for the requested home health care services because: Patient has SOB Deconditioned w/ increased weakness I certify that my clinical findings support that this patient is homebound because: Hx COPD- exertion dyspnea/weakness Maura Mosley Dec 17, 2017 15:57
--- NOTE | 2017-12-17 20:20 | HHI.DS ---
Discharge Summary Admission Date Dec 11, 2017 at 23:30 Admitting Diagnosis Osteomyelitis vs ischemic limb (1) PAD (peripheral artery disease) ICD Codes: I73.9 - Peripheral vascular disease, unspecified (2) HTN (hypertension) ICD Codes: I10 - Essential (primary) hypertension (3) Renal insufficiency ICD Codes: N28.9 - Disorder of kidney and ureter, unspecified (4) A-fib ICD Codes: I48.91 - Unspecified atrial fibrillation Procedures 12/15/17 Angioplasty CBC/BMP: 12/17/17 0535 12/17/17 0535 Significant Findings Laboratory Tests Test 12/14/17 20:37 12/15/17 05:40 12/16/17 07:38 12/17/17 05:35 Activated Partial Thromboplast Time 35.8 SEC (24.3-30.1) White Blood Count 19.4 TH/MM3 (4.0-11.0) 18.7 TH/MM3 (4.0-11.0) 16.9 TH/MM3 (4.0-11.0) Red Blood Count 3.92 MIL/MM3 (4.00-5.30) 3.69 MIL/MM3 (4.00-5.30) 3.66 MIL/MM3 (4.00-5.30) Red Cell Distribution Width 17.3 % (11.6-17.2) 17.3 % (11.6-17.2) Platelet Count 498 TH/MM3 (150-450) 594 TH/MM3 (150-450) 665 TH/MM3 (150-450) Neutrophils (%) (Auto) 88.0 % (16.0-70.0) 87.0 % (16.0-70.0) 84.9 % (16.0-70.0) Lymphocytes (%) (Auto) 4.2 % (9.0-44.0) 3.7 % (9.0-44.0) 3.7 % (9.0-44.0) Neutrophils # (Auto) 17.1 TH/MM3 (1.8-7.7) 16.3 TH/MM3 (1.8-7.7) 14.4 TH/MM3 (1.8-7.7) Lymphocytes # (Auto) 0.8 TH/MM3 (1.0-4.8) 0.7 TH/MM3 (1.0-4.8) 0.6 TH/MM3 (1.0-4.8) Monocytes # (Auto) 1.2 TH/MM3 (0-0.9) 1.3 TH/MM3 (0-0.9) 1.2 TH/MM3 (0-0.9) Estimat Glomerular Filtration Rate 68 ML/MIN (>89) 77 ML/MIN (>89) 76 ML/MIN (>89) Hemoglobin 11.2 GM/DL (11.6-15.3) 11.1 GM/DL (11.6-15.3) Hematocrit 33.5 % (35.0-46.0) 33.0 % (35.0-46.0) Chloride Level 109 MEQ/L (98-107) 111 MEQ/L (98-107) Eosinophils # (Auto) 0.5 TH/MM3 (0-0.4) Random Glucose 115 MG/DL (74-106) Calcium Level 8.3 MG/DL (8.5-10.1) PE at Discharge bjective Remarks GENERAL: Well-nourished, well-developed patient. SKIN: Warm and dry. HEAD: Normocephalic. EYES: No scleral icterus. No injection or drainage. NECK: Supple, trachea midline. No JVD or lymphadenopathy. CARDIOVASCULAR: Regular rate and rhythm without murmurs, gallops, or rubs. RESPIRATORY: Breath sounds equal B/L Diminished at base. No use of accessory muscle GASTROINTESTINAL: Abdomen soft, non-tender, nondistended. EXTREMITIES: No cyanosis 1+ edema to Left foot. NEUROLOGICAL: Awake, alert, and oriented x 3. Non-focal. Hospital Course Noted to have ischemic forth toe, found to have L SFA occlusion. She had successful arthrectomy with angioplasty on 12/15/17. WBC has been elevated imaging negative for Osteomyelitis. Cxr on 12/14 show small b/l pleural effusion. Blood cultures with no growth. She has remained afebrile. She has had some difficulty regulating B/P, Prn medication added. During her stay she has required O2, and after walk test today she will need home oxygen at home. CXR dome on 12/18 show opacity, PNA. Will start on Levaquin , Prednisone. Will follow up ion office early next week. Pt Condition on Discharge: Good Discharge Disposition: Discharge Home Discharge Instructions DIET: Follow Instructions for: As Tolerated, No Restrictions Activities you can perform: Regular-No Restrictions Follow up Referrals: Cardiology - 1 Week with Fermín Preston MD Cardiology PCP Follow-up - 2-[address] Muller PCP Follow-up SNF/[facility] with [facility] New Orders: BASIC METABOLIC PROF - 2-3 Days CBC NO DIFF - 2-3 Days New Medications: Levofloxacin (Levofloxacin) 750 Mg Tablet 750 MG PO DAILY for Infection for 10 Days, #10 TAB 0 Refills Oxygen (O2) (Oxygen (O2)) Device LITER GLORIA.CANULA CONTINUOUS for Prevent Hypoxemia, #3 Oxygen Concentrator Portable Gaseous 2 L/min via Nasal Canula Continuous For 99 months Prednisone (Prednisone) 20 Mg Tab 20 MG PO DAILY for Dyspnea for 5 Days, #5 TAB 0 Refills Continued Medications: Allopurinol (Allopurinol) 100 Mg Tab 100 MG PO BID for Gout, #30 TAB 0 Refills Amiodarone (Amiodarone) 200 Mg Tab 200 MG PO DAILY for Regulate Heart Beat, #30 TAB 0 Refills Amlodipine (Amlodipine) 5 Mg Tab 5 MG PO DAILY for Blood Pressure Management, #30 TAB 0 Refills Apixaban (Eliquis) 2.5 Mg Tab 2.5 MG PO BID for Blood Clot Prevention, TAB 0 Refills Cholecalciferol (Vitamin D3) 1,000 Unit Cap 1000 UNITS PO DAILY for Nutritional Supplement, #1 BOTTLE 0 Refills Enalapril (Enalapril) 10 Mg Tab 10 MG PO BID, #60 TAB 0 Refills Hydrochlorothiazide (Hydrochlorothiazide) 12.5 Mg Cap 12.5 MG PO DAILY, #30 CAP 0 Refills Isosorbide Mononitrate ER (Isosorbide Mononitrate ER) 30 Mg Dio 30 MG PO DAILY for Prevent Chest Pain, #30 TAB 0 Refills Levothyroxine (Levothyroxine) 50 Mcg Tab 50 MCG PO DAILY for Thyroid, #30 TAB 0 Refills Multiple Vitamin (Multiple Vitamin) 1 Tab 1 TAB PO DAILY for Nutritional Supplement, TAB 0 Refills Nitroglycerin SL (Nitrostat SL) 0.4 Mg Subl 0.4 MG SL DIRECTED PRN for CHEST PAIN, #100 TAB.SL 0 Refills 1 tablet under the tongue as needed for chest pain. Repeat every 5 minutes for a total of 3 DOSES or call 911 if NO relief. Ondansetron Odt (Zofran Odt) 4 Mg Tab 4 MG SL Q6HR PRN for Nausea/Vomiting, #12 TAB 0 Refills Pravastatin (Pravastatin) 80 Mg Tab 80 MG PO DAILY for Cholesterol Management, #30 TAB 0 Refills Additional Information She will start on levaquin 750mg x 10 days and prednisone 20 mg x 5 days for PNA Scripts provided. She will continue her HCTZ at home. Will cont with home O2, as needed She instructed to FU in office next week, we will repeat CXR after tx completed. Maura Mosley Dec 17, 2017 20:20
[2017-12-17] MEDS: ACETAMINOPHEN/HYDROcodone 325 MG/5 MG TAB PO PRN (21:01)
[2017-12-18] VITALS: BP 162/72; PULSE 77; RESP 20; TEMP 98; O2SAT 94
[2017-12-18 04:00] VITALS: BP 198/88; PULSE 77; RESP 20; TEMP 97.4; O2SAT 92
[2017-12-18] MEDS: SODIUM CHLOR 0.9% 1000 ML INJ 1,000 ML IV SCH ×2 (05:22→15:01)
[2017-12-18] MEDS: LEVOTHYROXINE SODIUM 50 MCG TAB PO SCH (06:05)
[2017-12-18] MEDS: hydrALAZINE HCL 25 MG TAB PO SCH ×2 (06:05→14:01)
--- NOTE | 2017-12-18 07:22 | RADRPT ---
EXAM DATE/TIME: 12/18/2017 06:05 [place] COMPARISON: CHEST SINGLE AP, August 20, 2017, 11:25. INDICATIONS : Short of breath MEDICAL HISTORY : extremity ischemia, wound infection SURGICAL HISTORY : loop recorder ENCOUNTER: Subsequent ACUITY: 2 days PAIN SCORE: 0/10 LOCATION: Bilateral chest FINDINGS: The heart is enlarged. Bibasilar patchiness is noted consistent with probable pneumonia. Small bilate ral pleural effusions are noted. A loop recorder is noted. CONCLUSION: 1. Bibasilar patchiness consistent with probable pneumonia. Clinical correlation is recommended. 2. Small bilateral pleural effusion. 3. Cardiomegaly. Aidan Fernando MD on December 18, 2017 at 7:20 Board Certified Radiologist. This report was verified electronically.
[2017-12-18 07:52] LABS: AUTOMATED NEUTROPHIL # 14.5 TH/MM3 (1.8-7.7); BASOPHIL # 0.2 TH/MM3 (0-0.2); BASOPHIL % 1.2 % (0.0-2.0); EOSINOPHIL # 0.7 TH/MM3 (0-0.4); EOSINOPHIL % 3.8 % (0.0-4.0); HEMATOCRIT 34.4 % (35.0-46.0); HEMOGLOBIN 11.5 GM/DL (11.6-15.3); LYMPH % 4.5 % (9.0-44.0); LYMPHOCYTE # 0.8 TH/MM3 (1.0-4.8); MEAN CELL VOLUME 89.4 FL (80.0-100.0); MEAN CORPUSCULAR HEMOGLOBIN 29.8 PG (27.0-34.0); MEAN CORPUSCULAR HGB CONC 33.3 % (32.0-36.0); MEAN PLATELET VOLUME 8.7 FL (7.0-11.0); MONO % 7.9 % (0.0-8.0); MONOCYTE # 1.4 TH/MM3 (0-0.9); NEUT % 82.6 % (16.0-70.0); PLATELET COUNT 843 TH/MM3 (150-450); RED BLOOD COUNT 3.85 MIL/MM3 (4.00-5.30); RED CELL DISTRIBUTION WIDTH 17.1 % (11.6-17.2); WHITE BLOOD COUNT 17.5 TH/MM3 (4.0-11.0)
[2017-12-18 08:00] VITALS: BP 191/88; PULSE 78; RESP 18; TEMP 97.4; O2SAT 94
[2017-12-18 08:26] VITALS: O2SAT 94
[2017-12-18] MEDS: RESP: ALBUTEROL 2.5 MG/IPRATROPIUM 0.5 MG NEB (SCH) NEB ×2 (08:26→14:40)
[2017-12-18 08:28] LABS: BICARBONATE 22.6 MEQ/L (21.0-32.0); CREATININE 0.65 MG/DL (0.50-1.00)
[2017-12-18] MEDS: APIXABAN 2.5 MG TABLET PO SCH (09:22)
[2017-12-18] MEDS: amLODIPine BESYLATE 5 MG TAB PO SCH (09:22)
[2017-12-18] MEDS: PRAVASTATIN SOD 80 MG TAB PO SCH (09:22)
[2017-12-18] MEDS: AMIODARONE 200 MG TAB PO SCH (09:22)
[2017-12-18] MEDS: ISOSORBIDE MONONITRATE 30 MG CR TAB (IMDUR) PO SCH (09:22)
[2017-12-18] MEDS: ENALAPRIL MALEATE 10 MG TAB PO SCH (09:22)
[2017-12-18] MEDS: ASPIRIN EC 81 MG TABEC PO SCH (09:22)
[2017-12-18] MEDS: MULTIVITAMIN TAB PO SCH (09:23)
[2017-12-18] MEDS: ALLOPURINOL 100 MG TAB PO SCH (09:23)
[2017-12-18] MEDS: SODIUM CHLORIDE 0.9% FLUSH 10 ML FLUSH IV FLUSH SCH (09:23)
[2017-12-18] MEDS: DOCUSATE SODIUM 50 MG/SENNA 8.6 MG TAB PO SCH (09:23)
[2017-12-18] MEDS ORDERED: PRED20 PO (09:31)
[2017-12-18] MEDS ORDERED: LEVO750T3 PO (09:31)
--- NOTE | 2017-12-18 09:35 | HHI.DS ---
Discharge Summary Admission Date Dec 11, 2017 at 23:30 Admitting Diagnosis Osteomyelitis vs ischemic limb (1) PAD (peripheral artery disease) ICD Codes: I73.9 - Peripheral vascular disease, unspecified (2) HTN (hypertension) ICD Codes: I10 - Essential (primary) hypertension (3) Renal insufficiency ICD Codes: N28.9 - Disorder of kidney and ureter, unspecified (4) A-fib ICD Codes: I48.91 - Unspecified atrial fibrillation Procedures 12/15/17 Angioplasty CBC/BMP: 12/18/17 0716 12/18/17 0716 Significant Findings Laboratory Tests Test 12/16/17 07:38 12/17/17 05:35 12/18/17 07:16 White Blood Count 18.7 TH/MM3 (4.0-11.0) 16.9 TH/MM3 (4.0-11.0) 17.5 TH/MM3 (4.0-11.0) Red Blood Count 3.69 MIL/MM3 (4.00-5.30) 3.66 MIL/MM3 (4.00-5.30) 3.85 MIL/MM3 (4.00-5.30) Hemoglobin 11.2 GM/DL (11.6-15.3) 11.1 GM/DL (11.6-15.3) 11.5 GM/DL (11.6-15.3) Hematocrit 33.5 % (35.0-46.0) 33.0 % (35.0-46.0) 34.4 % (35.0-46.0) Platelet Count 594 TH/MM3 (150-450) 665 TH/MM3 (150-450) 843 TH/MM3 (150-450) Neutrophils (%) (Auto) 87.0 % (16.0-70.0) 84.9 % (16.0-70.0) 82.6 % (16.0-70.0) Lymphocytes (%) (Auto) 3.7 % (9.0-44.0) 3.7 % (9.0-44.0) 4.5 % (9.0-44.0) Neutrophils # (Auto) 16.3 TH/MM3 (1.8-7.7) 14.4 TH/MM3 (1.8-7.7) 14.5 TH/MM3 (1.8-7.7) Lymphocytes # (Auto) 0.7 TH/MM3 (1.0-4.8) 0.6 TH/MM3 (1.0-4.8) 0.8 TH/MM3 (1.0-4.8) Monocytes # (Auto) 1.3 TH/MM3 (0-0.9) 1.2 TH/MM3 (0-0.9) 1.4 TH/MM3 (0-0.9) Chloride Level 109 MEQ/L (98-107) 111 MEQ/L (98-107) 110 MEQ/L (98-107) Estimat Glomerular Filtration Rate 77 ML/MIN (>89) 76 ML/MIN (>89) 86 ML/MIN (>89) Red Cell Distribution Width 17.3 % (11.6-17.2) Eosinophils # (Auto) 0.5 TH/MM3 (0-0.4) 0.7 TH/MM3 (0-0.4) Random Glucose 115 MG/DL (74-106) 108 MG/DL (74-106) Calcium Level 8.3 MG/DL (8.5-10.1) Potassium Level 3.4 MEQ/L (3.5-5.1) PE at Discharge bjective Remarks GENERAL: Well-nourished, well-developed patient. SKIN: Warm and dry. HEAD: Normocephalic. EYES: No scleral icterus. No injection or drainage. NECK: Supple, trachea midline. No JVD or lymphadenopathy. CARDIOVASCULAR: Regular rate and rhythm without murmurs, gallops, or rubs. RESPIRATORY: Breath sounds clera equal bilaterally. No use of accessory muscle GASTROINTESTINAL: Abdomen soft, non-tender, nondistended. EXTREMITIES: No cyanosis, or edema.diminished pulse to left lower ext, r groin with pressure bag NEUROLOGICAL: Awake, alert, and oriented x 3. Non-focal. Pt Condition on Discharge: Good Discharge Disposition: Discharge Home Discharge Instructions DIET: Follow Instructions for: As Tolerated, No Restrictions Activities you can perform: Regular-No Restrictions Additional Information She will start on levaquin 750mg x 10 days and prednisone 20 mg x 5 days for PNA Scripts provided. She will continue her HCTZ at home. Will cont with home O2, as needed She instructed to FU in office next week, we will repeat CXR after tx completed. Maura Mosley Dec 18, 2017 09:35
[2017-12-18] MEDS ORDERED: POTASSIUM CHLORIDE 20 MEQ CONTROLLED RELEASE TAB PO ONE (10:30)
[2017-12-18 11:57] VITALS: BP 161/69; PULSE 74; RESP 20; TEMP 97.5; O2SAT 95
== END 2017-12-18 15:30 | disposition home health service (06) | DRG 270 ==
LOC: NEPC 14:35 → NEDA 23:30 → NEDH 12-12 08:04 → N07B 12-12 12:36
PROVIDERS: ADMIT Family Medicine; ATTEND Family Medicine
PROC: 04CL3ZZ Extirpation of Matter from Left Femoral Artery, Percutaneous Approach (ICD-10-PCS; principal; 2017-12-15)
PROC: 04CN3ZZ Extirpation of Matter from Left Popliteal Artery, Percutaneous Approach (ICD-10-PCS; 2017-12-15)
PROC: B41G1ZZ Fluoroscopy of Left Lower Extremity Arteries using Low Osmolar Contrast (ICD-10-PCS; 2017-12-15)
PROC: B41C1ZZ Fluoroscopy of Pelvic Arteries using Low Osmolar Contrast (ICD-10-PCS; 2017-12-15)
PROC: B41F1ZZ Fluoroscopy of Right Lower Extremity Arteries using Low Osmolar Contrast (ICD-10-PCS; 2017-12-15)
DX: E11.52 Type 2 diabetes mellitus with diabetic peripheral angiopathy with gangrene (principal); J18.9 Pneumonia, unspecified organism; J90 Pleural effusion, not elsewhere classified; I48.2 Chronic atrial fibrillation; I65.23 Occlusion and stenosis of bilateral carotid arteries; I10 Essential (primary) hypertension; I25.10 Atherosclerotic heart disease of native coronary artery without angina pectoris; N28.9 Disorder of kidney and ureter, unspecified; E03.9 Hypothyroidism, unspecified; M10.9 Gout, unspecified; E78.5 Hyperlipidemia, unspecified; H91.92 Unspecified hearing loss, left ear; K57.30 Diverticulosis of large intestine without perforation or abscess without bleeding; M19.90 Unspecified osteoarthritis, unspecified site; I25.2 Old myocardial infarction; Z79.01 Long term (current) use of anticoagulants
CPT/HCPCS: 37225; 71045; 71046; 75635; 75710; 76937; 80048; 80053; 83605; 85025; 85610; 85730; 87040; 93880; 94618; 94640; 94664; 96374; 99152; 99153; C1714; C1760; C1769; C1884; C1887; C1894; J0690; J1644; J2250; J2270; J3010; J7030; Q9967

== ENCOUNTER 2017-12-22 21:10 | Inpatient (IN) | payer MEDICARE, BC ==
[~2017-12-22] VITALS: Ht 157.5 cm; Wt 62.4 kg
[~2017-12-22 21:10] MED LIST changes: +ENAL10TA PO; -ENAL20TA PO; +LEVO750T3 PO; +OXYGENDME NAS.CANULA; +PRED20 PO
[2017-12-22 21:42] VITALS: BP 152/69; PULSE 68; RESP 18; TEMP 97.5; O2SAT 98
[2017-12-22] MEDS ORDERED: DOXY1CAP74 PO (22:05)
[2017-12-22] MEDS ORDERED: HYDR-3583 PO (22:13)
--- NOTE | 2017-12-22 22:16 | PD ---
HPI Chief Complaint: Skin Problem Time Seen by Provider: 21:59 Travel History International Travel<30 days: No Contact w/Intl Traveler<30days: No Traveled to known affect area: No History of Present Illness HPI 87-year-old female with history of peripheral artery disease, hypertension, atrial fibrillation, on eliquis, presents for evaluation of left foot pain and discoloration of the toes. The patient was recently admitted for treatment of peripheral arterial disease, found to have a left SFA occlusion. She is status post successful arthrectomy with angioplasty in December 15. She was recently discharged. Since yesterday she has had increased pain in her left foot as well as purplish discoloration in the left second and fourth toes. She was seen today by her primary care physician, Dr. theodore, sent here for further evaluation. She was following with vascular surgeon Dr. Lopez during her hospitalization. Burning pain which is worse with palpation and walking. She has been compliant with her Eliquis. Denies fevers, chills, chest pain, shortness of breath, abdominal pain, nausea, vomiting. No other complaints at this time. PFSH Past Medical History Hx Anticoagulant Therapy: Yes (Eliquis) Arthritis: Yes (Bilateral hands ) Asthma: No Autoimmune Disease: No Blood Disorders: No Anxiety: No Depression: No Heart Rhythm Problems: No Cancer: No Cardiovascular Problems: Yes (LOOP MONITOR) High Cholesterol: Yes Chemotherapy: No Chest Pain: Yes Congestive Heart Failure: No Cerebrovascular Accident: No Diabetes: No Diminished Hearing: Yes (LEFT HEARING AIDE) Endocrine: Yes Gastrointestinal Disorders: Yes GERD: No Genitourinary: No Headaches: Yes Hiatal Hernia: No Hypertension: Yes Immune Disorder: No Implanted Vascular Access Dvce: Yes Musculoskeletal: Yes Neurologic: Yes Psychiatric: No Reproductive: No Respiratory: Yes Migraines: No Radiation Therapy: No Seizures: No Sleep Apnea: No Thyroid Disease: Yes Ulcer: No Influenza Vaccination: No Menopausal: Yes Past Surgical History Abdominal Surgery: Yes (POLYPS REMOVED) AICD: No Appendectomy: Yes Body Medical Devices: Back surgery Cardiac Surgery: Yes (ABLASION) Cholecystectomy: Yes Hysterectomy: Yes Insulin Pump: No Joint Replacement: No Oral Surgery: Yes (dental implants ) Pacemaker: No Thoracic Surgery: No Other Surgery: Yes (BACK SURGERY 2003) Social History Alcohol Use: Yes (WINE OCCAS.) Tobacco Use: No Substance Use: No Allergies-Medications (Allergen,Severity, Reaction): Coded Allergies: Horse/Equine Containing Products (Unverified Allergy, Severe, HIVES, ) Reported Meds & Prescriptions Reported Meds & Active Scripts Active Prednisone 20 Mg Tab 20 Mg PO DAILY 5 Days Oxygen (O2) Device Liter GLORIA.CANULA CONTINUOUS Oxygen Concentrator Portable Gaseous 2 L/min via Nasal Canula Continuous For 99 months Reported Hydrocodone-Acetaminophen 10-325 mg Tab 1 Tab PO Q6H PRN Doxycycline 40 Mg Cap 100 Mg PO BID Enalapril (Enalapril Maleate) 10 Mg Tab 10 Mg PO BID Vitamin D3 (Cholecalciferol) 1,000 Unit Cap 1,000 Units PO DAILY Multiple Vitamin 1 Tab 1 Tab PO DAILY Hydrochlorothiazide 12.5 Mg Cap 12.5 Mg PO DAILY Nitrostat SL (Nitroglycerin) 0.4 Mg Subl 0.4 Mg SL DIRECTED PRN 1 tablet under the tongue as needed for chest pain. Repeat every 5 minutes for a total of 3 DOSES or call 911 if NO relief. Levothyroxine (Levothyroxine Sodium) 50 Mcg Tab 50 Mcg PO DAILY Amlodipine (Amlodipine Besylate) 5 Mg Tab 5 Mg PO DAILY Isosorbide Mononitrate ER (Isosorbide Mononitrate) 30 Mg Dio 30 Mg PO DAILY Eliquis (Apixaban) 2.5 Mg Tab 2.5 Mg PO BID Pravastatin 80 Mg Tab 80 Mg PO DAILY Amiodarone (Amiodarone HCl) 200 Mg Tab 200 Mg PO DAILY Allopurinol 100 Mg Tab 100 Mg PO BID Review of Systems Except as stated in HPI: all other systems reviewed are Neg Physical Exam Narrative GENERAL: Well-developed well-nourished female no acute distress SKIN: Warm and dry. Dusky purplish discoloration noted to the left fourth toe as well as left second toe. HEAD: Atraumatic. Normocephalic. EYES: Pupils equal and round. No scleral icterus. No injection or drainage. ENT: No nasal bleeding or discharge. Mucous membranes pink and moist. NECK: Trachea midline. No JVD. CARDIOVASCULAR: Regular rate and rhythm. No murmur appreciated. RESPIRATORY: No accessory muscle use. Clear to auscultation. Breath sounds equal bilaterally. GASTROINTESTINAL: Abdomen soft, non-tender, nondistended. Hepatic and splenic margins not palpable. MUSCULOSKELETAL: Skin as noted above, tender to palpation left second and fourth toes. 1+ left dorsalis pedis pulse. Dopplerable dorsalis pedis and posterior tibial pulses. NEUROLOGICAL: Awake and alert. No obvious cranial nerve deficits. Motor grossly within normal limits. Normal speech. Data Data Last Documented VS Vital Signs Date Time Temp Pulse Resp B/P (MAP) Pulse Ox O2 Delivery O2 Flow Rate FiO2 12/22/17 22:18 62 18 95 Nasal Cannula 3.00 12/22/17 21:42 97.5 152/69 (96) Orders Orders Complete Blood Count With Diff (12/22/17 21:46) Comprehensive Metabolic Panel (12/22/17 21:46) Prothrombin Time / Inr (Pt) (12/22/17 21:46) Act Partial Throm Time (Ptt) (12/22/17 21:46) Admit Order (Ed Use Only) (12/22/17 22:23) MDM Medical Decision Making Medical Screen Exam Complete: Yes Emergency Medical Condition: Yes Medical Record Reviewed: Yes Differential Diagnosis Peripheral vascular disease, arterial occlusion, osteomyelitis cellulitis Narrative Course I discussed the case with Dr. Lopez who would like the patient to be admitted to the medicine service with consultation to himself, does not recommend any additional anticoagulation or imaging studies at this time. I discussed with Dr. Muller who is agreeable with admission. Diagnosis Primary Impression: Peripheral vascular disease Additional Impression: Ischemic pain of left foot Admitting Information Admitting Physician Requests: Admit Migue Barton Dec 22, 2017 22:16
[2017-12-22 22:18] VITALS: PULSE 62; RESP 18; O2SAT 95
[2017-12-22 22:49] LABS: AUTOMATED NEUTROPHIL # 22.6 TH/MM3 (1.8-7.7); BASOPHIL # 0.2 TH/MM3 (0-0.2); BASOPHIL % 0.8 % (0.0-2.0); EOSINOPHIL # 0.4 TH/MM3 (0-0.4); EOSINOPHIL % 1.5 % (0.0-4.0); HEMATOCRIT 38.1 % (35.0-46.0); HEMOGLOBIN 12.5 GM/DL (11.6-15.3); LYMPH % 5.9 % (9.0-44.0); LYMPHOCYTE # 1.5 TH/MM3 (1.0-4.8); MEAN CELL VOLUME 89.7 FL (80.0-100.0); MEAN CORPUSCULAR HEMOGLOBIN 29.4 PG (27.0-34.0); MEAN CORPUSCULAR HGB CONC 32.7 % (32.0-36.0); MEAN PLATELET VOLUME 8.1 FL (7.0-11.0); MONO % 4.2 % (0.0-8.0); MONOCYTE # 1.1 TH/MM3 (0-0.9); NEUT % 87.6 % (16.0-70.0); PLATELET COUNT 845 TH/MM3 (150-450); RED BLOOD COUNT 4.24 MIL/MM3 (4.00-5.30); RED CELL DISTRIBUTION WIDTH 16.7 % (11.6-17.2); WHITE BLOOD COUNT 25.7 TH/MM3 (4.0-11.0)
[2017-12-22 23:03] LABS: INTERNATIONAL NORMALIZED RATIO 1.1 RATIO; PROTHROMBIN TIME - PATIENT 11.4 SEC (9.8-11.6)
[2017-12-22 23:12] LABS: ALBUMIN 3.4 GM/DL (3.4-5.0); AST (GOT) 29 U/L (15-37); BICARBONATE 29.6 MEQ/L (21.0-32.0); BLOOD UREA NITROGEN 22 MG/DL (7-18); CALCIUM 9.1 MG/DL (8.5-10.1); CHLORIDE 100 MEQ/L (98-107); CREATININE 1.23 MG/DL (0.50-1.00); GLOMERULAR FILTRATION RATE 41 ML/MIN (>89); GLUCOSE,RANDOM 189 MG/DL (74-106); SODIUM (NA) 137 MEQ/L (136-145)
[2017-12-22 23:13] LABS: ALT (GPT) 44 U/L (10-53)
[2017-12-22 23:15] LABS: ALKALINE PHOSPHATASE 95 U/L (45-117); TOTAL BILIRUBIN ADULT 0.3 MG/DL (0.2-1.0)
[2017-12-22 23:16] LABS: BANDS 5 % (0-6); LYMPHOCYTES 9 % (9-44); MONOCYTES 2 % (0-8); MYELOCYTES 2 % (0-0); NEUTROPHIL # MANUAL DIFF 22.4 TH/MM3 (1.8-7.7); POLYS (SEG NEUTROPHILS) 80 % (16-70)
[2017-12-22 23:17] LABS: ACANTHOCYTES OCC (NORMAL); OVALOCYTES 1+ (NORMAL)
[2017-12-22 23:42] VITALS: BP 157/70; PULSE 61; RESP 18; O2SAT 95
[2017-12-23] VITALS (7 sets, daily range): BP systolic 140–173; BP diastolic 62–79; PULSE 60–66; RESP 16–20; TEMP 97.2–98.2; O2SAT 94–96
[2017-12-23] MEDS ORDERED: BISACODYL 10 MG SUPP RECTAL PRN (00:45)
[2017-12-23] MEDS ORDERED: SENNOSIDES 8.6 MG TAB PO PRN (00:45)
[2017-12-23] MEDS ORDERED: NITROGLYCERIN 0.4 MG SL 25 TABS/BTL SL PRN (00:45)
[2017-12-23] MEDS ORDERED: LACTULOSE SYRUP 20 GM/30 ML CUP PO PRN (00:45)
[2017-12-23] MEDS ORDERED: MAGNESIUM HYDROXIDE SUSP 30 ML CUP PO PRN (00:45)
[2017-12-23] MEDS ORDERED: SODIUM CHLORIDE 0.9% FLUSH 10 ML FLUSH IV FLUSH PRN (00:45)
[2017-12-23] MEDS ORDERED: ACETAMINOPHEN 325 MG TAB PO PRN (00:45)
[2017-12-23] MEDS ORDERED: NALOXONE HCL 0.4 MG/ML AMP IV PUSH PRN (00:45)
[2017-12-23] MEDS: LEVOTHYROXINE SODIUM 50 MCG TAB PO SCH (05:23)
--- NOTE | 2017-12-23 08:59 | HHI.HP ---
History of Present Illness Primary Care Physician Darron Muller, DO Admission Diagnosis Peripheral vascular disease, left foot ischemia Diagnoses: History of Present Illness 87-year-old female with history of peripheral artery disease, hypertension, atrial fibrillation, on eliquis, presents for evaluation of left foot pain and discoloration of the toes.She was seen in office yesterday by Dr Muller. The patient was recently admitted for treatment of peripheral arterial disease, found to have a left SFA occlusion. She is status post successful arthrectomy with angioplasty in December 15. She was recently discharged home New to home O2, and Levaquin and prednisone for PNA. Since yesterday she has had increased pain in her left foot as well as purplish discoloration in the left second and fourth toes. She was following with vascular surgeon Dr. Lopez during her hospitalization. Burning pain which is worse with palpation and walking. She has been compliant with her Eliquis. (Maura Mosley) Review of Systems Constitutional: COMPLAINS OF: Fatigue Respiratory: COMPLAINS OF: Shortness of breath Cardiovascular: COMPLAINS OF: Claudication Psychiatric: COMPLAINS OF: Anxiety (Maura Mosley) Past Family Social History Allergies: Coded Allergies: Horse/Equine Containing Products (Unverified Allergy, Severe, HIVES, ) Past Medical History Arthritis HLD HTN Hypothyroid Cardiac ablation Past Surgical History Appendectomy Cholecystectomy Cardiac ablation Loop recorder Reported Medications Prednisone 20 Mg Tab 20 Mg PO DAILY 5 Days Oxygen (O2) Device Liter GLORIA.CANULA CONTINUOUS Oxygen Concentrator Portable Gaseous 2 L/min via Nasal Canula Continuous For 99 months Reported Hydrocodone-Acetaminophen 10-325 mg Tab 1 Tab PO Q6H PRN Doxycycline 40 Mg Cap 100 Mg PO BID Enalapril (Enalapril Maleate) 10 Mg Tab 10 Mg PO BID Vitamin D3 (Cholecalciferol) 1,000 Unit Cap 1,000 Units PO DAILY Multiple Vitamin 1 Tab 1 Tab PO DAILY Hydrochlorothiazide 12.5 Mg Cap 12.5 Mg PO DAILY Nitrostat SL (Nitroglycerin) 0.4 Mg Subl 0.4 Mg SL DIRECTED PRN 1 tablet under the tongue as needed for chest pain. Repeat every 5 minutes for a total of 3 DOSES or call 911 if NO relief. Levothyroxine (Levothyroxine Sodium) 50 Mcg Tab 50 Mcg PO DAILY Amlodipine (Amlodipine Besylate) 5 Mg Tab 5 Mg PO DAILY Isosorbide Mononitrate ER (Isosorbide Mononitrate) 30 Mg Dio 30 Mg PO DAILY Eliquis (Apixaban) 2.5 Mg Tab 2.5 Mg PO BID Pravastatin 80 Mg Tab 80 Mg PO DAILY Amiodarone (Amiodarone HCl) 200 Mg Tab 200 Mg PO DAILY Allopurinol 100 Mg Tab 100 Mg PO BID Active Ordered Medications Current Medications Medications (Trade) Dose Ordered Sig/Kalpana Route Start Time Stop Time Status Last Admin (NS Flush) 2 ml UNSCH PRN IV FLUSH 12/23/17 00:45 (NS Flush) 2 ml BID IV FLUSH 12/23/17 09:00 (Tylenol) 650 mg Q4H PRN PO 12/23/17 00:45 (Narcan Inj) 0.4 mg UNSCH PRN IV PUSH 12/23/17 00:45 (Maxine-Colace) 1 tab BID PO 12/23/17 09:00 (Milk Of Magnesia Liq) 30 ml Q12H PRN PO 12/23/17 00:45 (Senokot) 17.2 mg Q12H PRN PO 12/23/17 00:45 (Dulcolax Supp) 10 mg DAILY PRN RECTAL 12/23/17 00:45 (Lactulose Liq) 30 ml DAILY PRN PO 12/23/17 00:45 (Zyloprim) 100 mg BID PO 12/23/17 09:00 (Cordarone) 200 mg DAILY PO 12/23/17 09:00 (Norvasc) 5 mg DAILY PO 12/23/17 09:00 (Eliquis) 2.5 mg BID PO 12/23/17 09:00 (Vitamin D3) 1,000 units DAILY PO 12/23/17 09:00 (Vasotec) 10 mg BID PO 12/23/17 09:00 (Microzide) 12.5 mg DAILY PO 12/23/17 09:00 (Fossil 10-325 Mg) 1 tab Q6H PRN PO 12/23/17 00:45 (Imdur) 30 mg DAILY PO 12/23/17 09:00 (Synthroid) 50 mcg DAILY@0600 PO 12/23/17 06:00 12/23/17 05:23 (Nitrostat Sl) 0.4 mg STAT PRN SL 12/23/17 00:45 (Pravachol) 80 mg DAILY PO 12/23/17 09:00 (Deltasone) 20 mg DAILY PO 12/23/17 09:00 (Vibramycin) 100 mg BID PO 12/23/17 09:00 (Theragran) 1 tab DAILY PO 12/23/17 09:00 Social History Denies Tobacco Occasional ETOH (Maura Mosley) Physical Exam Vital Signs Vital Signs Date Time Temp Pulse Resp B/P (MAP) Pulse Ox O2 Delivery O2 Flow Rate FiO2 12/23/17 07:57 97.6 62 18 173/78 (109) 95 12/23/17 02:04 157/67 (97) 12/23/17 01:30 98.2 66 18 172/72 (105) 95 12/22/17 23:42 61 18 157/70 (99) 95 Nasal Cannula 2.00 12/22/17 22:18 62 18 95 Nasal Cannula 3.00 12/22/17 21:42 97.5 68 18 152/69 (96) 98 Physical Exam GENERAL: This is a well-nourished, well-developed patient, in no apparent distress. SKIN: No rashes skin Cool and dry, left fourth toe, purple HEAD: Atraumatic. Normocephalic. No temporal or scalp tenderness. EYES: Pupils equal round and reactive. Extraocular motions intact. No scleral icterus. No injection or drainage. ENT: Nose without bleeding. Airway patent. [place] NECK: Trachea midline. No JVD or lymphadenopathy. Supple, nontender CARDIOVASCULAR: Regular rate and rhythm without murmurs, gallops, or rubs. RESPIRATORY: Clear to auscultation. Breath sounds equal bilaterally. No wheezes , rales, or rhonchi on 2 liters GASTROINTESTINAL: Abdomen soft, non-tender, nondistended. No hepato-splenomegaly , or palpable masses. No guarding. MUSCULOSKELETAL: Extremities without clubbing, left fourth toe, purple. Pedal pulse diminished NEUROLOGICAL: Awake and alert. Cranial nerves II through XII intact. Normal speech. Laboratory Laboratory Tests Test 12/22/17 22:25 White Blood Count 25.7 Red Blood Count 4.24 Hemoglobin 12.5 Hematocrit 38.1 Mean Corpuscular Volume 89.7 Mean Corpuscular Hemoglobin 29.4 Mean Corpuscular Hemoglobin Concent 32.7 Red Cell Distribution Width 16.7 Platelet Count 845 Mean Platelet Volume 8.1 Neutrophils (%) (Auto) 87.6 Lymphocytes (%) (Auto) 5.9 Monocytes (%) (Auto) 4.2 Eosinophils (%) (Auto) 1.5 Basophils (%) (Auto) 0.8 Neutrophils # (Auto) 22.6 Lymphocytes # (Auto) 1.5 Monocytes # (Auto) 1.1 Eosinophils # (Auto) 0.4 Basophils # (Auto) 0.2 CBC Comment AUTO DIFF Differential Total Cells Counted 100 Neutrophils % (Manual) 80 Band Neutrophils % 5 Lymphocytes % 9 Monocytes % 2 Eosinophils % 2 Neutrophils # (Manual) 22.4 Myelocytes 2 Differential Comment FINAL DIFF MANUAL Platelet Estimate HIGH Platelet Morphology Comment NORMAL Ovalocytes 1+ Acanthocytes OCC Red Cell Morphology Comment Prothrombin Time 11.4 Prothromb Time International Ratio 1.1 Activated Partial Thromboplast Time 31.9 Blood Urea Nitrogen 22 Creatinine 1.23 Random Glucose 189 Total Protein 7.0 Albumin 3.4 Calcium Level 9.1 Alkaline Phosphatase 95 Aspartate Amino Transf (AST/SGOT) 29 Alanine Aminotransferase (ALT/SGPT) 44 Total Bilirubin 0.3 Sodium Level 137 Potassium Level 3.8 Chloride Level 100 Carbon Dioxide Level 29.6 Anion Gap 7 Estimat Glomerular Filtration Rate 41 (Maura Mosley) Result Diagram: 12/22/17222412/22/172224 Caprini VTE Risk Assessment Caprini VTE Risk Assessment: Mod/High Risk (score >= 2) Caprini Risk Assessment Model Point Value = 1 Point Value = 2 Point Value = 3 Point Value = 5 Age 41-60 Minor surgery BMI > 25 kg/m2 Swollen legs Varicose veins or History of unexplained or recurrent spontaneous Oral contraceptives or hormone replacement Sepsis (< 1 month) Serious lung disease, including pneumonia (< 1 month) Abnormal pulmonary function Acute myocardial infarction Congestive heart failure (< 1 month) History of inflammatory bowel disease Medical patient at bed rest Age 61-74 Arthroscopic surgery Major open surgery (> 45 min) Laparoscopic surgery (> 45 min) Malignancy Confined to bed (> 72 hours) Immobilizing plaster cast Central venous access Age >= 75 History of VTE Family history of VTE Factor V Leiden Prothrombin [id number] Lupus anticoagulant Anticardiolipin antibodies Elevated serum homocysteine Heparin-induced thrombocytopenia Other congenital or acquired thrombophilia Stroke (< 1 month) Elective arthroplasty Hip, pelvis, or leg fracture Acute spinal cord injury (< 1 month) On Eliquis Prophylaxis Regimen Total Risk Factor Score Risk Level Prophylaxis Regimen 0-1 Low Early ambulation 2 Moderate Order ONE of the following: *Sequential Compression Device (SCD) *Heparin 5000 units SQ BID 3-4 Higher Order ONE of the following medications: *Heparin 5000 units SQ TID *Enoxaparin/Lovenox 40 mg SQ daily (WT < 150 kg, CrCl > 30 mL/min) *Enoxaparin/Lovenox 30 mg SQ daily (WT < 150 kg, CrCl > 10-29 mL/min) *Enoxaparin/Lovenox 30 mg SQ BID (WT < 150 kg, CrCl > 30 mL/min) AND/OR *Sequential Compression Device (SCD) 5 or more Highest Order ONE of the following medications: *Heparin 5000 units SQ TID (Preferred with Epidurals) *Enoxaparin/Lovenox 40 mg SQ daily (WT < 150 kg, CrCl > 30 mL/min) *Enoxaparin/Lovenox 30 mg SQ daily (WT < 150 kg, CrCl > 10-29 mL/min) *Enoxaparin/Lovenox 30 mg SQ BID (WT < 150 kg, CrCl > 30 mL/min) AND *Sequential Compression Device (SCD) (Maura Mosley) Assessment and Plan Problem List: (1) Ischemic pain of left foot ICD Codes: M79.672 - Pain in left foot; I99.9 - Unspecified disorder of circulatory system Status: Acute Plan: Recently had arthrectomy w/ angioplasty 12/15. Vascular surgeon reconsulted (2) Peripheral vascular disease ICD Codes: I73.9 - Peripheral vascular disease, unspecified; I99.9 - Unspecified disorder of circulatory system Status: Acute Plan: Vascular surgeon consult, follow recommendations (3) HTN (hypertension) ICD Codes: I10 - Essential (primary) hypertension Plan: Cont home medications, monitor (4) A-fib ICD Codes: I48.91 - Unspecified atrial fibrillation Status: Acute Plan: Rate controlled, on Amiodarone and Eliquis (5) Leukocytosis ICD Codes: D72.829 - Elevated white blood cell count, unspecified Status: Acute Plan: She is on prednisone will get ua, cxr. recently tx for pna. Discharge Planning Home (Maura Mosley) Maura Mosley Dec 23, 2017 08:59 Darron Muller DO Dec 23, 2017 14:14
[2017-12-23] MEDS: DOCUSATE SODIUM 50 MG/SENNA 8.6 MG TAB PO SCH ×2 (09:00→21:00)
[2017-12-23] MEDS: APIXABAN 2.5 MG TABLET PO SCH (09:00)
[2017-12-23] MEDS: ALLOPURINOL 100 MG TAB PO SCH ×2 (09:00→21:28)
[2017-12-23] MEDS: SODIUM CHLORIDE 0.9% FLUSH 10 ML FLUSH IV FLUSH SCH ×2 (09:00→21:30)
[2017-12-23] MEDS: HYDROCHLOROTHIAZIDE 12.5 MG CAP PO SCH (09:00)
[2017-12-23] MEDS: amLODIPine BESYLATE 5 MG TAB PO SCH (09:00)
[2017-12-23] MEDS: ENALAPRIL MALEATE 10 MG TAB PO SCH ×2 (09:00→21:29)
[2017-12-23] MEDS: ISOSORBIDE MONONITRATE 30 MG CR TAB (IMDUR) PO SCH (09:00)
[2017-12-23] MEDS: PRAVASTATIN SOD 80 MG TAB PO SCH (09:00)
[2017-12-23] MEDS: predniSONE 20 MG TAB PO SCH (09:00)
[2017-12-23] MEDS: DOXYCYCLINE HYCLATE 100 MG CAP PO SCH ×2 (09:00→21:29)
[2017-12-23] MEDS: AMIODARONE 200 MG TAB PO SCH (09:00)
[2017-12-23] MEDS: MULTIVITAMIN TAB PO SCH (09:00)
[2017-12-23] MEDS: CHOLECALCIFEROL (VIT D3) 1000 UNIT TAB PO SCH (09:00)
[2017-12-23] MEDS: ACETAMINOPHEN/HYDROcodone 325 MG/10 MG TAB PO PRN ×3 (09:38→23:15)
--- NOTE | 2017-12-23 10:30 | RADRPT ---
EXAM DATE/TIME: 12/23/2017 09:59 [facility] COMPARISON: CHEST SINGLE AP, December 18, 2017, 6:05. INDICATIONS : Shortness of breath and chest tightness. Recent pneumonia. MEDICAL HISTORY : Extremity ischemia. SURGICAL HISTORY : Loop recorder. ENCOUNTER: Subsequent ACUITY: 2 days PAIN SCORE: 0/10 LOCATION: Bilateral chest FINDINGS: There is some mild indistinctness of the central and infrahilar bronchopulmonary markings bilaterally , slightly improved from prior. No parenchymal consolidation or infiltrates. The heart is upper lam its normal size. Both hemidiaphragms are well delineated. Recorded device projects over the left he art. CONCLUSION: Improved aeration of the lungs without focal infiltrates. There is persistent indistinctness of the central bronchopulmonary markings. James Grace MD on December 23, 2017 at 10:27 Board Certified Radiologist. This report was verified electronically.
[2017-12-23] MEDS: SODIUM CHLOR 0.9% 1000 ML INJ 1,000 ML IV SCH ×2 (11:15→21:31)
--- NOTE | 2017-12-23 11:16 | PD.CAR.PN ---
CVT Progress Note Subjective/Hospital Course: Patient seen Consult dictated CTA ordered. Will hold Eliquis J Objective: Vital Signs Date Time Temp Pulse Resp B/P (MAP) Pulse Ox O2 Delivery O2 Flow Rate FiO2 12/23/17 07:57 97.6 62 18 173/78 (109) 95 12/23/17 02:04 157/67 (97) 12/23/17 01:30 98.2 66 18 172/72 (105) 95 12/22/17 23:42 61 18 157/70 (99) 95 Nasal Cannula 2.00 12/22/17 22:18 62 18 95 Nasal Cannula 3.00 12/22/17 21:42 97.5 68 18 152/69 (96) 98 Result Diagram: 12/22/17 2225 12/22/17 2225 Lesvia Lopez MD Dec 23, 2017 11:16
--- NOTE | 2017-12-23 15:38 | MB ---
cc: Lesvia Lopez MD DATE: 12/23/2017 CONSULTING PHYSICIAN: Lesvia Lopez MD, vascular surgery REASON FOR CONSULTATION: Discoloration of the left forefoot. HISTORY OF PRESENT ILLNESS: This 87-year-old female presents now to the emergency room with pain in her left foot. She is a very poor historian. She cannot tell me whether this happened a few days ago or more than that. She just says that the foot is hurting off and on and toes are turning purple but then, at some point, they are not as purple as other times. Clearly, patient has ischemia of the left foot with some incipient gangrene of the toes and hence the consultation. PAST MEDICAL HISTORY: Complex. The patient has known cardiology history. She has coronary artery disease with negative stress test, atrial fibrillation, on Coreg and Eliquis, hypertension, diabetes mellitus, syncopal episodes, history of tachybrady syndrome and hypothyroidism. PAST SURGICAL HISTORY: That of multiple cardioversions, ablation in 2014, cholecystectomy, appendectomy and hysterectomy, and at last admission in October , patient had an interventional radiology balloon angioplasty of the left SFA. The patient went home and did well. SOCIAL HISTORY: Does not smoke or drink, except with dinner. PHYSICAL EXAMINATION: GENERAL: Shows a pleasant 87-year-old lady, awake, alert, oriented. HEENT: Pupils equal and reactive. Extraocular muscles intact. NECK: Bilateral carotid pulses. No bruits. Ultrasound of the carotids was negative. CHEST: Bilateral breath sounds, decreased at both apices and upper guevara consistent with some degree of senile emphysema. HEART: A regular rhythm. No atrial fib at the time. ABDOMEN: Soft. Active bowel sounds. No rebound, no guarding, no masses. Scars from previous surgery noted. Pelvis is stable. EXTREMITIES: The patient has bilateral palpable femoral pulses, palpable right popliteal pulse, dopplerable left popliteal pulse and then a dopplerable dorsalis pedis on the left and dopplerable posterior tibial on the left and right and also dorsalis pedis on the right. Feet are warm; however, patient's left foot displays purplish discoloration of the 3 toes, which is a new finding from the last time, was only 1 toe, and she has dependent rubor and some elevation pallor at this time. NEUROLOGIC: She is grossly intact and sensation in the foot is preserved. ASSESSMENT AND PLAN: I reviewed laboratory and diagnostic procedures. This lady had a recent interventional radiology balloon angioplasty and endarterectomy of the superficial femoral artery artery and at this point, has more ischemic changes. I would not think that the vessel has occluded, but it is conceivable that the patient through some emboli or is manifesting small vessel disease way distally in the foot. She will have an urgent CTA with runoff and we will see how to address this. I thank you very much for referral. I will follow the patient. CT has been ordered for today. MD SOLEDAD Anderson/LINDA , 03:06 PM , 03:38 PM [email or web address]
[2017-12-23] MEDS ORDERED: IOHEXOL 350 MG/ML 10 ML VIAL (for RAD DIAG) IVCONTRAST ONE (17:35)
--- NOTE | 2017-12-23 19:28 | RADRPT ---
EXAM DATE/TIME: 12/23/2017 17:06 [facility] COMPARISON: FEMPOP REVAS ATHERECTOMY ONLY, LT, December 15, 2017, 13:13. CTA RUNOFF W 3D RECON, December 11, 2017, 20: 14. INDICATIONS : Left leg ischemia, pain. IV CONTRAST: 95 cc Omnipaque 350 (iohexol) IV RADIATION DOSE: 2.14 CTDIvol (mGy) MEDICAL HISTORY : Cardiovascular disease. Hypertension. SURGICAL HISTORY : Appendectomy. Cholecystectomy.Hysterectomy. ENCOUNTER: Initial ACUITY: 2 weeks PAIN SCALE: 5/10 LOCATION: Left leg TECHNIQUE: Volumetric scanning was performed using a multi-row detector CT scanner. The data was post processed with a variety of visualization algorithms including full volume maximum intensity projection, multi -planar sliding thin slab reformation, curved planar reformation, and surface rendering techniques. Using automated exposure control and adjustment of the mA and/or kV according to patient size, radiat ion dose was kept as low as reasonably achievable to obtain optimal diagnostic quality images. DICO M format image data is available electronically for review and comparison. FINDINGS: Patient had previous atherectomy fully short segment occlusion mid SFA. Patient had generalized dila tation and extensive hard and soft plaque. On the left, the atherectomy appears patent. There is a 3 vessel trifurcation identified the posteri or tibial artery providing the plantar arch. Anterior tibial artery disappears in collaterals. I do not see evidence for embolization in the trifurcation vessels. On the right SFA is patent. Significant tibioperoneal trunk disease is present the large posterior t ibial artery providing runoff to the foot. Otherwise exam is unchanged from the comparison study of 12/11/17. CONCLUSION: Atherectomy site on the left is patent with 3 vessel trifurcation and good runoff to the foot. Given the appearance of the vessels significant soft plaque is suspected in both SFAs. Shawn Tillman MD FACR on December 23, 2017 at 19:23 Board Certified Radiologist. This report was verified electronically.
[2017-12-23] MEDS: PREGABALIN 75 MG CAP PO SCH (21:29)
[2017-12-24] VITALS (7 sets, daily range): BP systolic 138–154; BP diastolic 63; PULSE 53–66; RESP 16–20; TEMP 97.4–98; O2SAT 91–95
[2017-12-24] MEDS: ACETAMINOPHEN/HYDROcodone 325 MG/10 MG TAB PO PRN ×2 (05:30→16:44)
[2017-12-24] MEDS: LEVOTHYROXINE SODIUM 50 MCG TAB PO SCH (05:31)
[2017-12-24] MEDS: PREGABALIN 75 MG CAP PO SCH (08:45)
[2017-12-24] MEDS: CHOLECALCIFEROL (VIT D3) 1000 UNIT TAB PO SCH (08:45)
[2017-12-24] MEDS: HYDROCHLOROTHIAZIDE 12.5 MG CAP PO SCH (08:45)
[2017-12-24] MEDS: PRAVASTATIN SOD 80 MG TAB PO SCH (08:45)
[2017-12-24] MEDS: DOCUSATE SODIUM 50 MG/SENNA 8.6 MG TAB PO SCH (08:45)
[2017-12-24] MEDS: DOXYCYCLINE HYCLATE 100 MG CAP PO SCH (08:45)
[2017-12-24] MEDS: ISOSORBIDE MONONITRATE 30 MG CR TAB (IMDUR) PO SCH (08:46)
[2017-12-24] MEDS: predniSONE 20 MG TAB PO SCH (08:46)
[2017-12-24] MEDS: amLODIPine BESYLATE 5 MG TAB PO SCH (08:46)
[2017-12-24] MEDS: ALLOPURINOL 100 MG TAB PO SCH (08:46)
[2017-12-24] MEDS: MULTIVITAMIN TAB PO SCH (08:46)
[2017-12-24] MEDS: SODIUM CHLORIDE 0.9% FLUSH 10 ML FLUSH IV FLUSH SCH (08:46)
[2017-12-24] MEDS: AMIODARONE 200 MG TAB PO SCH (08:46)
[2017-12-24] MEDS: ENALAPRIL MALEATE 10 MG TAB PO SCH (08:46)
--- NOTE | 2017-12-24 08:50 | PD.CAR.PN ---
CVT Progress Note Subjective/Hospital Course: Patient seen Consult dictated CTA ordered. Will hold Eliquis J 12/24/2017 Patient with partial livid discoloration of 3 toes of the left foot. Patient underwent recently balloon angioplasty of the left SFA. Repeat CTA with runoff reveals left inflow and outflow to be completely patent including the previously dilated and recanalized SFA on the left. On the right side patient has trifurcation disease starting with proximal tibial peroneal trunk and going all the way down and this is been known from before but right side is now asymptomatic. As far as the Left side discoloration to toes this is probably due to either small vessel disease in the toes and the foot or embolization of very tiny particles from distal which would not be obviously apparent on any vascular study Patient should remain on Eliquis and no other endovascular or open vascular therapy at this point is appropriate or indicated. Objective: Vital Signs Date Time Temp Pulse Resp B/P (MAP) Pulse Ox O2 Delivery O2 Flow Rate FiO2 12/24/17 05:25 97.8 58 16 154/63 (93) 12/23/17 23:30 97.2 60 16 151/67 (95) 95 12/23/17 21:19 97.6 61 18 157/67 (97) 96 12/23/17 17:33 20 12/23/17 17:00 97.5 65 20 163/79 (107) 96 12/23/17 16:30 Nasal Cannula 2.00 12/23/17 11:41 97.7 61 18 140/62 (88) 94 Result Diagram: 12/22/17222412/22/172224 Lesvia Lopez MD Dec 24, 2017 08:50
[2017-12-24] MEDS: APIXABAN 2.5 MG TABLET PO SCH (12:55)
[2017-12-24] MEDS ORDERED: PANT20 PO (14:01)
[2017-12-24] MEDS ORDERED: ASPI81TA23 PO (14:01)
--- NOTE | 2017-12-24 14:04 | HHI.PR ---
Subjective Remarks Follow-up for peripheral vascular disease. Patient is currently doing well. Resting in bed. Family members at bedside. No fever chills. Objective Vitals Vital Signs Date Time Temp Pulse Resp B/P (MAP) Pulse Ox O2 Delivery O2 Flow Rate FiO2 12/24/17 12:28 97.7 60 18 141/63 (89) 91 12/24/17 08:59 97.4 54 18 138/63 (88) 95 12/24/17 08:00 Nasal Cannula 2.00 12/24/17 05:25 97.8 58 16 154/63 (93) 12/24/17 04:00 57 12/24/17 00:00 56 12/23/17 23:30 97.2 60 16 151/67 (95) 95 12/23/17 21:19 97.6 61 18 157/67 (97) 96 12/23/17 20:45 Nasal Cannula 2.00 12/23/17 17:33 20 12/23/17 17:00 97.5 65 20 163/79 (107) 96 12/23/17 16:30 Nasal Cannula 2.00 Result Diagram: 12/22/17 2225 12/22/17 2225 Imaging Last Impressions Chest X-Ray 12/23/17 0000 Signed Impressions: Service Date/Time: Saturday, December 23, 2017 09:59 - CONCLUSION: Improved aeration of the lungs without focal infiltrates. There is persistent indistinctness of the central bronchopulmonary markings. James Grace MD Aorta w/Runoff CTA 12/23/17 0000 Signed Impressions: Service Date/Time: Saturday, December 23, 2017 17:06 - CONCLUSION: Atherectomy site on the left is patent with 3 vessel trifurcation and good runoff to the foot. Given the appearance of the vessels significant soft plaque is suspected in both SFAs. Shawn Tillman MD FACR Objective Remarks GENERAL: Alert, NAD. SKIN: Warm and dry. HEAD: Normocephalic. EYES: No scleral icterus. No injection or drainage. NECK: Supple, trachea midline. No JVD or lymphadenopathy. CARDIOVASCULAR: Regular rate and rhythm without murmurs, gallops, or rubs. RESPIRATORY: Breath sounds equal bilaterally. No accessory muscle use. GASTROINTESTINAL: Abdomen soft, non-tender, nondistended. MUSCULOSKELETAL: No edema. Left foot second and fourth toe mild cyanosis. BACK: Nontender without obvious deformity. No CVA tenderness. Procedures None A/P Problem List: (1) Ischemic pain of left foot ICD Code: M79.672 - Pain in left foot; I99.9 - Unspecified disorder of circulatory system Status: Acute (2) A-fib ICD Code: I48.91 - Unspecified atrial fibrillation (3) PAD (peripheral artery disease) ICD Code: I73.9 - Peripheral vascular disease, unspecified Assessment and Plan Ms. Delgado is a pleasant 87-year-old female with a history of peripheral artery disease, hypertension, atrial fibrillation on Eliquis 2.5 mg twice daily who was admitted to the hospital due to discoloration of her left toes. Vascular surgeon evaluated patient and recommended no surgical intervention at this point. Vascular surgery recommended restarting Eliquis as well as aspirin 81 mg. Vascular surgery cleared for discharge. Peripheral arterial disease Left foot ischemic pain Appreciate vascular surgery input. We will continue patient on Eliquis as well as aspirin 81 mg daily. Given patient's age, will start patient on Protonix 20 mg daily as well. Patient is advised not to use any NSAIDs on a regular basis. She can use Tylenol or Tylenol No. 3 for pain. Follow-up with vascular surgery in 3 months. 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 Continue Eliquis. Hypertension - continue amlodipine and HCTZ as well as enalapril. Suspected pneumonia -patient received doxycycline for 6 days. No clear evidence of pneumonia. Will not continue any further antibiotics. The patient become symptomatic, patient is advised to follow-up with her PCP. Full code. Eliquis. Discharge patient to home Condition on discharge: Improved Regular Diet as tolerated Ad Radha activity Rx written: Aspirin 81 mg daily Protonix 20 mg p.o. daily Follow-up with primary care physician within 1 week, vascular surgery within 2 weeks. Hawa Carlos DO Dec 24, 2017 2:04 pm
[2017-12-24] MEDS ORDERED: TYLETAB34 PO ×2 (14:05→14:20)
== END 2017-12-24 17:57 | disposition home or self-care (01) | DRG 300 ==
LOC: NEPC 21:10 → NEDA 22:24 → NEDH 12-23 02:27 → N04B 12-23 15:22
PROVIDERS: ADMIT Family Medicine; ATTEND Family Medicine
DX: E11.52 Type 2 diabetes mellitus with diabetic peripheral angiopathy with gangrene (principal); I48.91 Unspecified atrial fibrillation; I10 Essential (primary) hypertension; E03.9 Hypothyroidism, unspecified; E78.5 Hyperlipidemia, unspecified; H91.90 Unspecified hearing loss, unspecified ear; M19.90 Unspecified osteoarthritis, unspecified site; Z79.01 Long term (current) use of anticoagulants
CPT/HCPCS: 71045; 75635; 80053; 85007; 85027; 85610; 85730; J7030; J7512; Q9967

== ENCOUNTER 2018-06-10 07:41 | Inpatient (IN) ==
[~2018-06-10 07:41] MED LIST changes: -ALLO100T PO; -AMIO200T PO; -AMLO5TAB2 PO; -APIX2.5T PO; -CHOL10008 PO; -ENAL10TA PO; -HYDR12.57 PO; -ISOS30TA3 PO; -LEVO50TA4 PO; -LEVO750T3 PO; -MULTTAB67 PO; -NITR0.4S SL; +Nitroglycerin Drip Premix 50 MG/250 ML BOTTLE ONE; -OXYGENDME NAS.CANULA; -PRAV80TA2 PO; -PRED20 PO; -ZOFR4TAB3 SL; +fentaNYL Citrate Inj 250 MCG/5 ML Ampul ONE
[2018-06-10] MEDS ORDERED: Lidocaine 1% Inj 50 ML Vial ONE (08:02)
[2018-06-10] MEDS ORDERED: Protamine Sulfate Inj 50 MG/5 ML Vial ONE (08:02)
[2018-06-10] MEDS ORDERED: Heparin 10,000 UNITS/10 ML Vial (for IV use) ONE (08:02)
[2018-06-10] MEDS ORDERED: Heparin - SQ 10,000 UNITS/ML Vial ONE (08:02)
[2018-06-10] MEDS ORDERED: Chlorhexidine Gluconate 2% 1 Pack (2 Cloths) TOPICAL ONE (08:15)
[2018-06-10] MEDS ORDERED: Sodium Chlor 0.9% Inj 500 ML IV.CONT ONE (08:15)
[2018-06-10] MEDS ORDERED: Metoprolol Tartrate 25 MG Tablet PO ONE (08:15)
[2018-06-10 08:34] LABS: Baso # (Auto) 0.2 th/mm3 (0.0-0.2); Baso % (Auto) 1.2 % (0.0-2.0); Eos # (Auto) 0.6 th/mm3 (0.0-0.4); Eos % (Auto) 4.2 % (0.0-4.0); Hematocrit 40.9 % (35.0-46.0); Hemoglobin 13.5 gm/dL (11.6-15.3); Lymph % (Auto) 14.1 % (9.0-44.0); Mean Corpuscular Hemoglobin 30.3 pg (27.0-34.0); Mean Platelet Volume 8.7 fL (7.0-11.0); Mono # (Auto) 0.9 th/mm3 (0.0-0.9); Mono % (Auto) 6.4 % (0.0-8.0); Neut # (Auto) 10.3 th/mm3 (1.8-7.7); Neut % (Auto) 74.1 % (16.0-70.0); Platelet Count 798 th/mm3 (150-450); Red Blood Count 4.45 mil/mm3 (4.00-5.30); Red Cell Distribution Width 16.4 % (11.6-17.2)
[2018-06-10 08:51] LABS: Calcium 9.4 mg/dL (8.5-10.1); Carbon Dioxide 26.5 meq/L (21.0-32.0); Potassium 4.3 meq/L (3.5-5.1)
[2018-06-10] MEDS ORDERED: Glycopyrrolate Inj 1 MG/5 ML Syringe IV.PUSH ONE (09:21)
[2018-06-10] MEDS ORDERED: Normosol-R pH 7.4 Inj 1,000 ML IV.CONT ONE (09:21)
[2018-06-10] MEDS ORDERED: Lidocaine PF 1% Inj 5 ML Syringe OTHER ONE (09:21)
[2018-06-10] MEDS ORDERED: Neostigmine Inj 5 MG/5 ML Syringe IV.PUSH ONE (09:21)
[2018-06-10] MEDS ORDERED: *morphine SULFATE 4 MG/ML PERIprocedure ONLY ONE (12:44)
[2018-06-10] MEDS ORDERED: Naloxone Inj 0.4 MG/ML Vial IV.PUSH PRN (13:12)
[2018-06-10] MEDS ORDERED: Bisacodyl 10 MG Supp RECTAL PRN (13:12)
[2018-06-10] MEDS ORDERED: Post-op Orders (for Pharmacy) OTHER ONE (13:12)
[2018-06-10] MEDS ORDERED: Enoxaparin Inj 30 MG/0.3 ML Syringe SQ SCH (13:15)
[2018-06-10] MEDS: Sod Chloride 0.9% Inj 1,000 ML IV.CONT SCH (15:02)
[2018-06-10] MEDS: Morphine Sulfate Inj 2 MG/ML Vial IV.PUSH PRN ×2 (16:28→20:37)
[2018-06-10 17:57] LABS: Baso # (Auto) 0.1 th/mm3 (0.0-0.2); Baso % (Auto) 0.6 % (0.0-2.0); Eos # (Auto) 0.2 th/mm3 (0.0-0.4); Eos % (Auto) 1.2 % (0.0-4.0); Hematocrit 37.3 % (35.0-46.0); Hemoglobin 12.1 gm/dL (11.6-15.3); Lymph % (Auto) 5.4 % (9.0-44.0); Mean Corpuscular HGB Conc 32.5 % (32.0-36.0); Mean Corpuscular Hemoglobin 29.6 pg (27.0-34.0); Mean Corpuscular Volume 91.3 fL (80.0-100.0); Mean Platelet Volume 8.6 fL (7.0-11.0); Mono # (Auto) 0.2 th/mm3 (0.0-0.9); Mono % (Auto) 1.1 % (0.0-8.0); Neut # (Auto) 16.1 th/mm3 (1.8-7.7); Neut % (Auto) 91.7 % (16.0-70.0); Platelet Count 705 th/mm3 (150-450); Red Blood Count 4.09 mil/mm3 (4.00-5.30); Red Cell Distribution Width 16.1 % (11.6-17.2); White Blood Count 17.6 th/mm3 (4.0-11.0)
[2018-06-10 18:47] LABS: Carbon Dioxide 24.4 meq/L (21.0-32.0); Potassium 4.4 meq/L (3.5-5.1)
[2018-06-10] MEDS: Senna/Docusate Sodium 8.6/50 MG Tablet PO SCH (20:38)
[2018-06-10] MEDS: Allopurinol 100 MG Tablet PO SCH (20:38)
[2018-06-10] MEDS ORDERED: Amiodarone 200 MG Tablet PO SCH (21:00)
[2018-06-11] MEDS: Morphine Sulfate Inj 2 MG/ML Vial IV.PUSH PRN ×3 (00:54→11:31)
[2018-06-11] MEDS: Sod Chloride 0.9% Inj 1,000 ML IV.CONT SCH ×2 (01:16→10:31)
[2018-06-11] MEDS ORDERED: Levothyroxine 50 MCG Tablet PO SCH (06:00)
[2018-06-11 07:13] LABS: Baso # (Auto) 0.1 th/mm3 (0.0-0.2); Baso % (Auto) 0.5 % (0.0-2.0); Hematocrit 35.8 % (35.0-46.0); Hemoglobin 11.5 gm/dL (11.6-15.3); Lymph # (Auto) 0.8 th/mm3 (1.0-4.8); Lymph % (Auto) 3.9 % (9.0-44.0); Mean Corpuscular HGB Conc 32.2 % (32.0-36.0); Mean Corpuscular Hemoglobin 29.7 pg (27.0-34.0); Mean Corpuscular Volume 92.3 fL (80.0-100.0); Mean Platelet Volume 8.9 fL (7.0-11.0); Mono # (Auto) 0.6 th/mm3 (0.0-0.9); Mono % (Auto) 2.9 % (0.0-8.0); Neut # (Auto) 18.6 th/mm3 (1.8-7.7); Neut % (Auto) 92.7 % (16.0-70.0); Platelet Count 682 th/mm3 (150-450); Red Blood Count 3.88 mil/mm3 (4.00-5.30); Red Cell Distribution Width 16.6 % (11.6-17.2)
[2018-06-11 07:31] LABS: Calcium 8.1 mg/dL (8.5-10.1); Carbon Dioxide 25.9 meq/L (21.0-32.0); Potassium 4.4 meq/L (3.5-5.1)
[2018-06-11] MEDS: Senna/Docusate Sodium 8.6/50 MG Tablet PO SCH (08:45)
[2018-06-11] MEDS: Allopurinol 100 MG Tablet PO SCH (08:46)
[2018-06-11] MEDS ORDERED: Isosorbide Mononitrate 30 MG ER 24HR Tablet (Imdur) PO SCH (09:00)
== END 2018-06-11 14:20 | disposition home or self-care (01) ==
LOC: HSDC 07:41 → EDSTATUS 09:30 → HSDI 13:12 → N03 14:31
PROVIDERS: ADMIT Surgery; ATTEND Surgery

== ENCOUNTER 2018-06-14 18:33 | Inpatient (IN) ==
[2018-06-14] MEDS ORDERED: Sod Chloride 0.9% Inj 1,000 ML IV.SIG ONE (19:13)
--- NOTE | 2018-06-14 19:18 | ED ---
HPI General Chief Complaint: Neuro Symptoms/Deficit Stated Complaint: Weakness Time Seen by Provider: 06/14/18 19:03 Source: patient, family and old records reviewed Mode of arrival: ambulatory Limitations: no limitations History of Present Illness HPI Narrative: Patient is a 88-year-old female with a history of A. fib on Eliquis, HTN, MO, HLD and hypothyroidism status post right CEA past presented with complaint of feeling tired. Family reports today around 1:30 PM she had difficulty reading. Patient also reported complaints of tingling of bilateral arms and feet. Her son also stated that she turned on the tap water and forgot to turn it off. Patient has no other complaints at this time. Timing confirmed by: family member History of same: No Severity: mild Quality: weak and tingling Relieving factors: none Context: gradual onset On Anticoagulants: Yes Associated symptoms: loss of appetite, malaise and weakness Treatments Prior to Arrival: none Related Data Home Medications Medication Instructions Recorded Confirmed albuterol sulfate [Ventolin HFA] 1 puff INHALATION Q4-6H PRN 04/27/18 06/14/18 allopurinol 100 mg PO BID 04/27/18 06/14/18 amiodarone 200 mg PO HS 04/27/18 06/14/18 apixaban [Eliquis] 2.5 mg PO BID 04/27/18 06/14/18 cholecalciferol (vitamin D3) 1,000 units PO DAILY 04/27/18 06/14/18 [Vitamin D3] enalapril maleate 5 mg PO BID 04/27/18 06/14/18 hydrochlorothiazide 12.5 mg PO DAILY 04/27/18 06/14/18 levothyroxine 50 mcg PO DAILY 04/27/18 06/14/18 pravastatin 80 mg PO DAILY 04/27/18 06/14/18 aspirin [Adult Low Dose Aspirin] 81 mg PO DAILY 06/09/18 06/14/18 isosorbide mononitrate 30 mg PO DAILY 06/09/18 06/14/18 cipbknpo-aas-QN-lycopen-lutein 1 tab PO DAILY 06/09/18 06/14/18 [Centrum Silver] acetaminophen-codeine 1 tab PO Q4-6H PRN 06/14/18 06/14/18 [Tylenol-Codeine #3] Previous Rx's Medication Instructions Recorded oxycodone-acetaminophen 1 tab PO Q6H PRN #20 tab 06/11/18 Allergies Allergy/AdvReac Type Severity Reaction Status Date / Time Horse/Equine Containing Allergy Severe HIVES Verified 06/14/18 18:48 Products Review of Systems ROS: all other systems reviewed are negative [facility] Medical History Medical History Atrial fibrillation (Acute) DVT (deep venous thrombosis) (Acute) Hard of hearing (Acute) Heart attack (Acute) High cholesterol (Acute) Hypertension (Acute) Thyroid disease (Acute) Surgical History Surgical History History of back surgery (Acute) H/O heart artery stent (Acute) H/O shoulder surgery (Acute) History of loop recorder (Acute) Social History Social History Substance History: No History of Abuse Second Hand Smoke Exposure: No Smoking Status: Former smoker How Often Do You Have a Drink Containing Alcohol: 2 to 4 times a month Recent Travel in [facility] within the Last 8 Weeks: No Recent Out of Country Travel within the Last 8 Weeks: No Immunization History Tetanus Immunization: >5 Years Exam Narrative Exam Narrative: GENERAL: Alert and oriented in no distress SKIN: Focused skin assessment warm/dry. HEAD: Atraumatic. Normocephalic. EYES: Pupils equal and round. No scleral icterus. No injection or drainage. ENT: No nasal bleeding or discharge. Mucous membranes pink and moist.Right endarterectomy incision clean dry and intact. NECK: Trachea midline. No JVD. CARDIOVASCULAR: Regular rate and rhythm. No murmur appreciated. RESPIRATORY: No accessory muscle use. Clear to auscultation. Breath sounds equal bilaterally. GASTROINTESTINAL: Abdomen soft, non-tender, nondistended. Hepatic and splenic margins not palpable. MUSCULOSKELETAL: No obvious deformities. No clubbing. No cyanosis. No edema. NEUROLOGICAL: Awake and alert. No obvious cranial nerve deficits. Motor grossly within normal limits. Normal speech. PSYCHIATRIC: Appropriate mood and affect; insight and judgment normal. Course Hospital Course: Patient with leukocytosis likely secondary to right perihilar pneumonia seen on chest x-ray. CT brain was negative for acute bleed. CT angios of neck and head were also unremarkable. WBC of 15.7 with a left shift. Kidney function within normal limits. Hydrated. Reevaluation(s) Reevaluation #1: Stable vitals alert and oriented in no distress. Time: 20:00 Reevaluation #2: Hemodynamically stable resting comfortably no distress family at bedside notified on plan. Time: 22:59 Initial Documented Vital Signs Temperature 97.9 F 06/14/18 18:39 Pulse Rate 65 06/14/18 18:39 Respiratory Rate 15 06/14/18 18:39 Blood Pressure 183/138 H 06/14/18 18:39 Pulse Oximetry 96 06/14/18 18:39 Last Documented Vital Signs Temperature 97.9 F 06/14/18 18:39 Pulse Rate 71 06/14/18 21:25 Respiratory Rate 18 06/14/18 21:25 Blood Pressure 154/63 H 06/14/18 21:25 Pulse Oximetry 95 06/14/18 21:25 NIH Stroke Scale NIHSS Time Completed NIHSS Time Completed: 19:05 NIH Stroke Scale Level of Consciousness: 0-Alert Orientation Questions: 0-Answers both correct Responds to Commands: 0-Both tasks correct Gaze Eye Movement: 0-Horizontal movement WNL Visual Kelly: 0-No visual field defect Facial Movement: 0-Normal Motor Functions Arm LEFT: 0-No drift Motor Functions Arm RIGHT: 0-No drift Motor Functions Leg LEFT: 0-No drift Motor Functions Leg RIGHT: 0-No drift Limb Ataxia: 0-No ataxia Sensory Loss: 0-No sensory loss Best Language: 0-Normal Articulation: 0-Normal Extinction or Inattention Sensory: 0-Absent Total: 0 Medical Decision Making MDM Narrative Medical decision making narrative: Negative head and neck imaging for acute CVA. Chest x-ray suggestive of infectious process started on cefepime for hospital-acquired pneumonia. White count of 15.7. Not septic alert and oriented will be admitted for IV antibiotics. Medical Screen Exam Complete: Yes Emergency Medical Condition: Yes Medical Records Medical records reviewed: Yes I reviewed the patient's medical records. Lab Data Lab results reviewed: Yes I reviewed the patient's lab results. Result diagrams: 06/14/18 19:32 06/14/18 19:32 Lab Results 09/24/18 09/24/18 09/24/18 Range/Units 19:32 19:32 19:32 WBC 15.7 H (4.0-11.0) th/mm3 RBC 4.00 (4.00-5.30) mil/mm3 Hgb 11.6 (11.6-15.3) gm/dL Hct 36.7 (35.0-46.0) % MCV 91.7 (80.0-100.0) fL MCH 29.1 (27.0-34.0) pg MCHC 31.7 L (32.0-36.0) % RDW 16.3 (11.6-17.2) % Plt Count 720 H (150-450) th/mm3 MPV 8.9 (7.0-11.0) fL Neut % (Auto) 77.8 H (16.0-70.0) % Lymph % (Auto) 10.8 (9.0-44.0) % [place] % (Auto) 7.1 (0.0-8.0) % Eos % (Auto) 3.5 (0.0-4.0) % Baso % (Auto) 0.8 (0.0-2.0) % Neut # (Auto) 12.2 H (1.8-7.7) th/mm3 Lymph # (Auto) 1.7 (1.0-4.8) th/mm3 [place] # (Auto) 1.1 H (0.0-0.9) th/mm3 Eos # (Auto) 0.5 H (0.0-0.4) th/mm3 Baso # (Auto) 0.1 (0.0-0.2) th/mm3 WBC Differential . Differential Comment Auto diff final PT 10.5 (9.8-11.6) sec INR 1.0 Ratio APTT 30.6 H (24.3-30.1) sec Sodium 139 (136-145) meq/L Potassium 3.8 (3.5-5.1) meq/L Chloride 103 (98-107) meq/L Carbon Dioxide 30.7 (21.0-32.0) meq/L Anion Gap 5 (5-15) meq/L BUN 14 (7-18) mg/dL Creatinine 0.88 (0.50-1.00) mg/dL Estimated GFR 61 L (>89) mL/min Random Glucose 92 (74-106) mg/dL Calcium 8.8 (8.5-10.1) mg/dL Total Bilirubin 0.4 (0.2-1.0) mg/dL AST 30 (15-37) U/L ALT 38 (10-53) U/L Alkaline Phosphatase 89 (45-117) U/L Total Protein 6.6 (6.4-8.2) g/dL Albumin 2.9 L (3.4-5.0) g/dL Urine Color (Yellw/Straw) Urine Clarity (Clear) Urine pH (5.0-8.5) Ur Specific [place] (1.002-1.035) Urine Protein (Neg-Trace) mg/dL Urine Glucose (UA) (Negative) mg/dL Urine Ketones (Negative) mg/dL Urine Occult Blood (Negative) Urine Nitrate (Negative) Urine Bilirubin (Negative) Urine Urobilinogen (Less than 2) mg/dL Ur Leukocyte Esterase (Negative) Urine WBC (0-5) /hpf Micro UA Comment Ur Microscopic Review Urine Culture Comments 06/14/18 Range/Units 20:33 WBC (4.0-11.0) th/mm3 RBC (4.00-5.30) mil/mm3 Hgb (11.6-15.3) gm/dL Hct (35.0-46.0) % MCV (80.0-100.0) fL MCH (27.0-34.0) pg MCHC (32.0-36.0) % RDW (11.6-17.2) % Plt Count (150-450) th/mm3 MPV (7.0-11.0) fL Neut % (Auto) (16.0-70.0) % Lymph % (Auto) (9.0-44.0) % [place] % (Auto) (0.0-8.0) % Eos % (Auto) (0.0-4.0) % Baso % (Auto) (0.0-2.0) % Neut # (Auto) (1.8-7.7) th/mm3 Lymph # (Auto) (1.0-4.8) th/mm3 [place] # (Auto) (0.0-0.9) th/mm3 Eos # (Auto) (0.0-0.4) th/mm3 Baso # (Auto) (0.0-0.2) th/mm3 WBC Differential Differential Comment PT (9.8-11.6) sec INR Ratio APTT (24.3-30.1) sec Sodium (136-145) meq/L Potassium (3.5-5.1) meq/L Chloride (98-107) meq/L Carbon Dioxide (21.0-32.0) meq/L Anion Gap (5-15) meq/L BUN (7-18) mg/dL Creatinine (0.50-1.00) mg/dL Estimated GFR (>89) mL/min Random Glucose (74-106) mg/dL Calcium (8.5-10.1) mg/dL Total Bilirubin (0.2-1.0) mg/dL AST (15-37) U/L ALT (10-53) U/L Alkaline Phosphatase (45-117) U/L Total Protein (6.4-8.2) g/dL Albumin (3.4-5.0) g/dL Urine Color Straw (Yellw/Straw) Urine Clarity Clear (Clear) Urine pH 6.0 (5.0-8.5) Ur Specific [place] 1.004 (1.002-1.035) Urine Protein Negative (Neg-Trace) mg/dL Urine Glucose (UA) Negative (Negative) mg/dL Urine Ketones Negative (Negative) mg/dL Urine Occult Blood Negative (Negative) Urine Nitrate Negative (Negative) Urine Bilirubin Negative (Negative) Urine Urobilinogen Less than 2 (Less than 2) mg/dL Ur Leukocyte Esterase Negative (Negative) Urine WBC 2 (0-5) /hpf Micro UA Comment Culture not ind Ur Microscopic Review Not Reportable Urine Culture Comments Culture not ind Imaging Data Radiologist's impression: Head CT 06/14/18 19:13 CONCLUSION: 1. No acute findings in the brain. 2. Diffuse ischemic change and moderate atrophy, stable from July 2017. . Chest X-Ray 06/14/18 19:14 CONCLUSION: Right infrahilar infiltrate. Neck CTA 06/14/18 19:14 CONCLUSION: 1. Expected postsurgical findings at site of right carotid endarterectomy. 2. No evidence of luminal narrowing or dissection. ECG Data Attestation: I personally reviewed and interpreted this ECG as follows: Interpretation: Sinus rhythm 70 bpm. PA 209. QTc 357. Left axis deviation. Nonspecific ST-T wave abnormalities. No signs of acute ischemia. Discharge Plan Discharge Disposition Patient Disposition: 30 Still Patient Discharge Condition Condition: Good Discharge Details Diagnosis: Hospital acquired PNA, Brain TIA Physicians Team ED Provider: Oscar Valladares Primary Care Provider: Darron Muller Rxs /Orders / Referrals /Forms Prescriptions: No Action acetaminophen-codeine [Tylenol-Codeine #3] 300-30 mg Tablet 1 tab PO Q4-6H PRN (Reason: Pain) RF: 0 levothyroxine 50 mcg Tablet 50 mcg PO DAILY RF: 0 enalapril maleate 5 mg Tablet 5 mg PO BID RF: 0 apixaban [Eliquis] 2.5 mg Tablet 2.5 mg PO BID RF: 0 hydrochlorothiazide 12.5 mg Capsule 12.5 mg PO DAILY RF: 0 allopurinol 100 mg Tablet 100 mg PO BID RF: 0 cholecalciferol (vitamin D3) [Vitamin D3] 1,000 unit Capsule 1,000 units PO DAILY RF: 0 pravastatin 80 mg Tablet 80 mg PO DAILY RF: 0 amiodarone 200 mg Tablet 200 mg PO HS RF: 0 albuterol sulfate [Ventolin HFA] 90 mcg/actuation Hfa Aerosol Inhaler 1 puff INHALATION Q4-6H PRN (Reason: Respiratory Distress) RF: 0 isosorbide mononitrate 30 mg Tablet Extended Release 24 Hr 30 mg PO DAILY RF: 0 aspirin [Adult Low Dose Aspirin] 81 mg Tablet,Delayed Release (Dr/Ec) 81 mg PO DAILY RF: 0 iybkhlze-eww-SE-lycopen-lutein [Centrum Silver] 0.4-300-250 mg-mcg-mcg Tablet 1 tab PO DAILY RF: 0 oxycodone-acetaminophen 5-325 mg Tablet 1 tab PO Q6H PRN (Reason: Pain Scale 3 To 5) Qty: 20 RF: 0 Discharge Interventions Interventions: Vital Signs Last Done: 06/14/18 21:25 Status ED Status: Pending Admission
--- NOTE | 2018-06-14 19:52 | XR ---
EXAM DATE: 06/14/2018 7:27 PM EDT AGE/SEX: 88 years / Female INDICATIONS: Short of breath, possible stroke alert CLINICAL DATA: This is the patient's initial encounter. Patient reports that signs and symptoms have been present for 1 day and indicates a pain score of 0/10. MEDICAL/SURGICAL HISTORY: . Cardiovascular disease. Hypertension. . Appendectomy. Cholecystec mark.Hysterectomy [place] [facility] [place]. [facility] [place]. [facility] [place] 12[place]14[place]. . FINDINGS: A single AP view of the chest demonstrates the lungs to be symmetrically aerated without evidence of mass, infiltrate or effusion. Prior chest x-ray demonstrated indistinctness of the central bronchopu lmonary markings; these are better delineated than on the prior examination. Some opacity persists in the right infrahilar stop The cardiomediastinal contours are unremarkable. Osseous structures are i ntact. Loop recorder device in place. CONCLUSION: Right infrahilar infiltrate. Electronically signed by: James Grace MD 06/14/2018 7:51 PM EDT
[2018-06-14 20:04] LABS: Baso # (Auto) 0.1 th/mm3 (0.0-0.2); Baso % (Auto) 0.8 % (0.0-2.0); Eos # (Auto) 0.5 th/mm3 (0.0-0.4); Eos % (Auto) 3.5 % (0.0-4.0); Hematocrit 36.7 % (35.0-46.0); Hemoglobin 11.6 gm/dL (11.6-15.3); Lymph # (Auto) 1.7 th/mm3 (1.0-4.8); Lymph % (Auto) 10.8 % (9.0-44.0); Mean Corpuscular HGB Conc 31.7 % (32.0-36.0); Mean Corpuscular Hemoglobin 29.1 pg (27.0-34.0); Mean Corpuscular Volume 91.7 fL (80.0-100.0); Mean Platelet Volume 8.9 fL (7.0-11.0); Mono # (Auto) 1.1 th/mm3 (0.0-0.9); Mono % (Auto) 7.1 % (0.0-8.0); Neut # (Auto) 12.2 th/mm3 (1.8-7.7); Neut % (Auto) 77.8 % (16.0-70.0); Platelet Count 720 th/mm3 (150-450); Red Cell Distribution Width 16.3 % (11.6-17.2); White Blood Count 15.7 th/mm3 (4.0-11.0)
[2018-06-14 20:10] LABS: Activated Partial Thrombo Time 30.6 sec (24.3-30.1); Prothrombin Time 10.5 sec (9.8-11.6)
[2018-06-14 20:23] LABS: Albumin 2.9 g/dL (3.4-5.0); Anion Gap 5 meq/L (5-15); Aspartate Aminotransferase 30 U/L (15-37); Blood Urea Nitrogen 14 mg/dL (7-18); Calcium 8.8 mg/dL (8.5-10.1); Carbon Dioxide 30.7 meq/L (21.0-32.0); Chloride 103 meq/L (98-107); Glomerular Filtration Rate 61 mL/min (>89); Glucose,Random 92 mg/dL (74-106); Potassium 3.8 meq/L (3.5-5.1); Sodium 139 meq/L (136-145)
[2018-06-14 20:24] LABS: Alanine Aminotransferase 38 U/L (10-53)
[2018-06-14 20:26] LABS: Alkaline Phosphatase 89 U/L (45-117); Total Protein 6.6 g/dL (6.4-8.2)
[2018-06-14 20:58] LABS: Bilirubin,Urine Negative (Negative); Clarity,Urine Clear (Clear); Color,Urine Straw (Yellw/Straw); Glucose,Urine (UA) Negative (Negative); Leukocyte Esterase,Urine Negative (Negative); Nitrite,Urine Negative (Negative); Specific Gravity,Urine 1.004 (1.002-1.035)
[2018-06-14] MEDS ORDERED: Acetaminophen 325 MG Tablet PO ONE (21:42)
--- NOTE | 2018-06-14 21:49 | CT ---
EXAM DATE: 06/14/2018 9:37 PM EDT AGE/SEX: 88 years / Female INDICATIONS: Altered mental status, general weakness and dysphasia status post carotid endarterectom y four days ago. CLINICAL DATA: This is the patient's initial encounter. Patient reports that signs and symptoms have been present for 4 - 6 days and indicates a pain score of 6/10. MEDICAL/SURGICAL HISTORY: Myocardial infarction. Deep venous thrombosis. Hypertension. Carotid en darterectomy. Coronary artery stent. RADIATION DOSE: 11.04 CTDI (mGy) ; Combined studies COMPARISON: No prior exams available for comparison. TECHNIQUE: Volumetric scanning was performed using a multirow detector CT scanner during bolus infus ion of 90 ml Omnipaque 350 (iohexol) nonionic water-soluble contrast as a cumulative dose for multip le exams. The data was postprocessed with a variety of visualization algorithms including full-volu me maximum intensity projection, multiplanar sliding thin-slab reformation, curved-planar reformation , and surface-rendering techniques. Using automated exposure control and adjustment of the mA and/or kV according to patient size, radiation dose was kept as low as reasonably achievable to obtain opti mal diagnostic quality images. DICOM format image data is available electronically for review and co mparison. FINDINGS: Aortic Arch: There is a three-vessel origin of the great vessels from the aorta. No evidence of ost ial narrowing Right Carotid: Postsurgical changes in the right neck with soft tissue swelling, some deep soft tissu e gas, and multiple hemoclips at the right carotid endarterectomy site. The soft tissue thickening me asures up to 1.9 cm in width. The common carotid artery is intact. The carotid bulb has a normal con figuration without ulceration or narrowing. The internal carotid artery lumen is smooth without sten osis. The external carotid artery is intact. Left Carotid: The common carotid artery is intact. The carotid bulb has a normal configuration with out ulceration or narrowing. The internal carotid artery lumen is smooth without stenosis. The exte rnal carotid artery is intact. Vertebrals: The vertebral arteries have a symmetric diameter. No stenotic lesions are seen. Percent stenosis is calculated using the diameter of the stenotic region over the diameter of the nor mal distal internal carotid artery. CONCLUSION: 1. Expected postsurgical findings at site of right carotid endarterectomy. 2. No evidence of luminal narrowing or dissection. Electronically signed by: James Grace MD 06/14/2018 9:48 PM EDT
--- NOTE | 2018-06-14 22:14 | CT ---
EXAM DATE: 06/14/2018 9:16 PM EDT AGE/SEX: 88 years / Female INDICATIONS: Altered mental status, cephalgia, general weakness and dysphasia status post carotid en darterectomy four days ago. CLINICAL DATA: This is the patient's initial encounter. Patient reports that signs and symptoms have been present for 1 day and indicates a pain score of 6/10. MEDICAL/SURGICAL HISTORY: Deep venous thrombosis. Myocardial infarction. Hypertension. Coronary a rtery stent. Carotid endarterectomy. RADIATION DOSE: 52.83 CTDI (mGy) COMPARISON: [facility] [place], [place] BRAIN W/O CONTRAST, 08/20/2017. . TECHNIQUE: CT of the head without contrast. Using automated exposure control and adjustment of the mA and/or kV according to patient size, radiation dose was kept as low as reasonably achievable to ob tain optimal diagnostic quality images. DICOM format image data is available electronically for revi ew and comparison. FINDINGS: Cerebrum: The ventricles, sulci, and basal cisterns are prominent and there is decreased attenuation in the periventricular white matter, characteristic of ischemic change, unchanged in severity from 2016.. No evidence of midline shift, mass lesion, hemorrhage or acute infarction. No extraa xial fluid collections are seen. Posterior Fossa: The cerebellum and brainstem are intact. The 4th ventricle is midline. The cerebe llopontine angle is unremarkable. Extracranial: The visualized portion of the orbits is intact. Skull: The calvaria is intact. No evidence of skull fracture. CONCLUSION: 1. No acute findings in the brain. 2. Diffuse ischemic change and moderate atrophy, stable from July 2017. . Electronically signed by: James Grace MD 06/14/2018 10:13 PM EDT
--- NOTE | 2018-06-14 22:59 | CT ---
EXAM DATE: 06/14/2018 10:47 PM EDT AGE/SEX: 88 years / Female INDICATIONS: Altered mental status, neck pain, general weakness and dysphasia status post carotid en darterectomy four days ago. CLINICAL DATA: This is the patient's initial encounter. Patient reports that signs and symptoms have been present for 4 - 6 days and indicates a pain score of 4/10. MEDICAL/SURGICAL HISTORY: Deep venous thrombosis. Myocardial infarction. Hypertension. Coronary a rtery stent. Carotid endarterectomy. RADIATION DOSE: 11.04 CTDI (mGy) ; Combined studies COMPARISON: . TECHNIQUE: Volumetric scanning was performed using a multi-row detector CT scanner during bolus infu raymundo of 90 ml Omnipaque 350 (iohexol) nonionic water-soluble contrast as a cumulative dose for multi ple exams. The data was post processed with a variety of visualization algorithms including full vo lume maximum intensity projection, multi-planar sliding thin slab reformation, curved planar reformat ion, and surface rendering techniques. Using automated exposure control and adjustment of the mA and /or kV according to patient size, radiation dose was kept as low as reasonably achievable to obtain o ptimal diagnostic quality images. DICOM format image data is available electronically for review and comparison. FINDINGS: There is excellent visualization of the major intracranial arteries out to the second-order branch ve ssels. Both posterior cerebral arteries arise from the anterior circulation. There is no evidence for aneurysm, vessel truncation or stenosis, and no evidence for vascular malformation. CONCLUSION: 1. Negative CTA of the [place]. Electronically signed by: James Grace MD 06/14/2018 10:57 PM EDT
[2018-06-15] MEDS ORDERED: Acetaminophen/Codeine 300/30 MG Tablet PO PRN (00:01)
[2018-06-15] MEDS: Levothyroxine 50 MCG Tablet PO SCH (06:05)
[2018-06-15] MEDS: Isosorbide Mononitrate 30 MG ER 24HR Tablet (Imdur) PO SCH (06:05)
[2018-06-15] MEDS: Multivitamin/Minerals Therapeutic Tablet PO SCH (09:48)
[2018-06-15] MEDS: Allopurinol 100 MG Tablet PO SCH ×2 (09:50→20:49)
--- NOTE | 2018-06-15 12:32 | MB ---
cc: Betty Esposito MD DATE: 06/15/2018 REASON FOR CONSULTATION: Possible TIA. HISTORY OF PRESENT ILLNESS: The patient is an 88-year-old woman with a history of atrial fibrillation, on Eliquis, hypertension, CO, hyperlipidemia, hypothyroidism, recent right carotid endarterectomy this past here at the hospital. Comes in for not feeling her usual self. Had trouble reading. She states she has paresthesias in her fingers, but that is not something new. She has postoperative pain in the right neck. She still does not feel back to baseline, but she is able to read for me and I asked her to read some things. She also has a history of DVT and thyroid disease. PAST SURGICAL HISTORY: Right carotid endarterectomy last . History of heart surgery, stent, shoulder, loop recorder. SOCIAL HISTORY: No abuse. Used to smoke in the past, 2-4 drinks a month. PHYSICAL EXAMINATION: VITAL SIGNS: Temperature is 98, pulse 68, respiratory rate 16, blood pressure 192/91, saturating 93%. NECK: Supple. HEART: Regular. NEUROLOGIC: She is awake and alert. Speech is normal. Pupils react. Visual guevara are full. Face questionably is symmetrical. There may be a mild attenuation of the left nasolabial fold. Tongue is midline. Facial sensation is normal. Motor agudelo, there is no drift or leg lag. She has been ambulating back and forth to the commode. Cerebellar testing is normal. Sensory is normal. LABORATORY DATA: White count 15.7, platelets 720,000, neutrophil percent 77.8%. Coagulation panel: PTT is 30.6. Chemistries: GFR 61, albumin 2.9. Urine is negative. Microbiology, no growth so far in 1 day. IMAGING STUDIES: Chest x-ray shows right infrahilar infiltrate. Neck CTA shows postsurgical changes in the right carotid endarterectomy. No dissection. Head CTA, normal [place]. CT brain, diffuse ischemic chronic changes. No change from 2017. IMPRESSION: Possible transient ischemic attack, possibly due to her pneumonia. She is currently on Eliquis and baby aspirin. I would continue with that. I will go ahead and get an EEG and check an MRI if possible. If her MRI is positive, certainly at that point in time, further recommendations will be made, but I would anticipate her still staying on anticoagulants as well as a baby aspirin. Treat her with an antibiotic of choice for her pneumonia. I believe pulmonary will see her as well. MD ARY Diamond/dao , 11:17 AM , 11:25 AM
--- NOTE | 2018-06-15 12:34 | MB ---
cc: Robert Soriano MD DATE: 06/15/2018 DATE OF CONSULTATION: 06/15/2018. REQUESTING PHYSICIAN: Dr. Muller. REASON FOR CONSULTATION: Consult requested to evaluate pneumonia. HISTORY OF PRESENT ILLNESS: Ms. Delgado is a pleasant 88-year-old female with a history of PAD, atrial fibrillation, history of hypertension and myocardial infarction. The patient recently had right carotid endarterectomy done and she was discharged from the hospital on . The patient states that after that she has been having some headaches. On the day of admission, son noticed that she was becoming more forgetful. She left the tap on and forgot about it and also has difficulty in speech. Her chest x-ray shows a right infrahilar infiltrate. She has cough, not able to bring up any phlegm. Denied any fever or chills. No night sweats. PAST MEDICAL HISTORY: Significant for history of recent right carotid endarterectomy, history of PAD. The patient had procedure done by Dr. Velasquez; history of atrial fibrillation, hypertension, hyperlipidemia. MEDICATIONS: She is currently takin. Tylenol No. 3. 2. Ventolin inhaler. 3. Zyloprim 100 mg twice a day. 4. Amiodarone 200 mg a day. 5. Eliquis 2.5 mg twice a day. 6. Aspirin 81 mg a day. 7. Cefepime 1 g every 12 hours. 8. Naropin 5 mg twice a day. 9. Hydrochlorothiazide 12.5 mg a day. 10. Isosorbide 30 mg a day. 11. Levothyroxine 50 mcg a day. ALLERGIES: SHE IS ALLERGIC TO HORSE SERUM. SOCIAL HISTORY: She is a . She used to work before. Remote history of brief smoking. She drinks wine. FAMILY HISTORY: She has 6 children. REVIEW OF SYSTEMS: Normally she is up and active. No headache or dizziness. No COPD or emphysema. No malignancy. PHYSICAL EXAMINATION: GENERAL: Reveals a pleasant elderly female, not in any acute distress. VITAL SIGNS: Blood pressure 173/78, heart rate 70, respirations 18, temperature 98. HEENT: Pupils are equal and reactive to light. NECK: Supple. She has a right carotid endarterectomy surgery and has tapes on it. CHEST: Good BS bilat. No rhonchi. HEART: S1, S2 normal. ABDOMEN: Benign. EXTREMITIES: No edema. IMPRESSION: 1. Right basal infiltrate. 2. Possible transient ischemic attack. 3. Recent right carotid endarterectomy. 4. Atrial fibrillation. 5. Hypertension. PLAN: I discussed with the patient; she will continue her antibiotics, Cefepime. She is on Eliquis 2.5 mg twice a day, aspirin 81 mg a day. She is stable on room air. Further treatment pending the course in the hospital. Thank you Dr. Muller for this consult. MD VERONICA Live/canelo/clarice , 10:13 AM , 10:23 AM MTDD
--- NOTE | 2018-06-15 12:58 | P.HPFP ---
History of Present Illness Primary Care Physician: Darron Muller DO History of Present Illness: HPI Narrative: Patient is a 88-year-old female with a history of A. fib on Eliquis, HTN, TN, HLD and hypothyroidism status post right CEA past presents to ER for complaints of tired, and tingling in b/l arms and legs. family reported that she clay trouble reading, and turned facet on and forgot to turn off, all out of behavior for her. She is found to have elevated wbc 15.7, with right perihilar pneumonia seen on chest x-ray. CT brain was negative for acute bleed. CT angio of neck and head were also unremarkable. . - Diagnosis (1) Hospital acquired PNA (2) Brain TIA (3) Hypertension (4) Afib Inpatient Certification: I certify that the inpatient services were ordered in accordance with Medicare regulations governing the order. This includes certification that hospital inpatient services are reasonable and necessary and in the case of services not specified as inpatient-only under 42 CFR 419.22(n), that they are appropriately provided as inpatient services in accordance to with the 2-midnight benchmark under 43 CFR 412.3(e) Estimated Total Length of Stay (Days): 5 Plans for Post Hospital Care: Home health [facility] - History History Provided By: Patient - Medical History Medical History: Medical History (Last Reviewed 06/15/18 @ 08:22 by Duran Sears) Atrial fibrillation DVT (deep venous thrombosis) Hard of hearing Heart attack High cholesterol Hypertension Thyroid disease - Surgical History Surgical History: Surgical History (Last Reviewed 06/15/18 @ 08:22 by Duran Sears) History of back surgery (Acute) H/O heart artery stent H/O shoulder surgery History of loop recorder - Tobacco History Second Hand Smoke Exposure: No Smoking Status: Never smoker - Alcohol History How Often Do You Have a Drink Containing Alcohol: 2 to 4 times a month - Substance Use History Substance History: No History of Abuse - Travel History Recent Travel in the [place] Within the Last 8 Weeks: No Recent Travel Out of the Country Within the Last 8 Weeks: No - Immunization History Tetanus Immunization: >5 Years Medications and Allergies Active Medications: Active Medications Acetaminophen/Codeine Phosphate (Tylenol W/Cod #3) 1 tab PO Q4H PRN PRN Reason: PAIN 1-10 Albuterol (Ventolin Hfa Inh) 1 puff INH Q4H PRN PRN Reason: Respiratory Distress Albuterol (Duoneb Neb (Prn)) 1 ampul NEB Q6HR NEB PRN PRN Reason: SHORTNESS OF BREATH Allopurinol (Zyloprim) 100 mg PO BID [facility] Last Admin: 06/15/18 09:50 Dose: 100 mg Amiodarone HCl (Cordarone) 200 mg PO [facility] Apixaban (Eliquis) 2.5 mg PO BID [facility] Last Admin: 06/15/18 09:49 Dose: 2.5 mg Aspirin (Ecotrin) 81 mg PO DAILY [facility] Last Admin: 06/15/18 09:50 Dose: 81 mg Enalapril Maleate (Vasotec) 5 mg PO BID [facility] Last Admin: 06/15/18 09:49 Dose: 5 mg Hydrochlorothiazide (Microzide) 12.5 mg PO DAILY [facility] Last Admin: 06/15/18 09:50 Dose: 12.5 mg Cefepime HCl 1,000 mg/ Sodium (Chloride) 100 mls @ 200 mls/hr IV.SIG Q12H [facility] Isosorbide Mononitrate (Imdur) 30 mg PO DAILY@0700 [facility] Last Admin: 06/15/18 06:05 Dose: 30 mg Levothyroxine Sodium (Synthroid) 50 mcg PO DAILY@0700 [facility] Last Admin: 06/15/18 06:05 Dose: 50 mcg Multivitamins/Minerals (Theragran-M) 1 tab PO DAILY [facility] Last Admin: 06/15/18 09:48 Dose: Not Given Vitamin D (Vitamin D3) 1,000 unit PO DAILY [facility] Last Admin: 06/15/18 09:49 Dose: 1,000 unit Allergies Allergy/AdvReac Type Severity Reaction Status Date / Time Horse/Equine Containing Allergy Severe HIVES Verified 06/14/18 18:48 Products Home Medications Medication Instructions Recorded Confirmed Type albuterol sulfate [Ventolin HFA] 1 puff INHALATION Q4-6H PRN 04/27/18 06/14/18 History allopurinol 100 mg PO BID 04/27/18 06/14/18 History amiodarone 200 mg PO HS 04/27/18 06/14/18 History apixaban [Eliquis] 2.5 mg PO BID 04/27/18 06/14/18 History cholecalciferol (vitamin D3) 1,000 units PO DAILY 04/27/18 06/14/18 History [Vitamin D3] enalapril maleate 5 mg PO BID 04/27/18 06/14/18 History hydrochlorothiazide 12.5 mg PO DAILY 04/27/18 06/14/18 History levothyroxine 50 mcg PO DAILY 04/27/18 06/14/18 History pravastatin 80 mg PO DAILY 04/27/18 06/14/18 History aspirin [Adult Low Dose Aspirin] 81 mg PO DAILY 06/09/18 06/14/18 History isosorbide mononitrate 30 mg PO DAILY 06/09/18 06/14/18 History sdkoenij-zui-ES-lycopen-lutein 1 tab PO DAILY 06/09/18 06/14/18 History [Centrum Silver] acetaminophen-codeine 1 tab PO Q4-6H PRN 06/14/18 06/14/18 History [Tylenol-Codeine #3] Exam Vital signs: Vital Signs 06/14/18 18:39 06/14/18 18:57 06/14/18 20:35 Temperature 97.9 F Pulse Rate 65 65 71 Respiratory Rate 15 20 18 Blood Pressure 183/138 H 183/81 H 180/80 H Pulse Oximetry 96 95 95 06/14/18 21:25 06/15/18 00:50 06/15/18 07:39 Temperature 98.0 F Pulse Rate 71 78 68 Respiratory Rate 18 18 16 Blood Pressure 154/63 H 173/78 H 192/91 H Pulse Oximetry 95 93 L 06/15/18 11:38 Temperature 98.7 F Pulse Rate 68 Respiratory Rate 16 Blood Pressure 166/75 H Pulse Oximetry 93 L Intake & Output 06/14/18 06/15/18 06/15/18 18:59 06:59 18:59 Intake Total 1100 / 1100 Balance 1100 / 1100 Weight 57.606 kg 57.606 kg 57.606 kg Intake: IV 1100 / 1100 Maxipime Inj 2,000 MG In NS Inj 100 / 100 100 ML @ 200 mls/hr IV.SIG ONCE ONE Rx#:[id number] NS Inj 1,000 ML @ Wide Open IV. 1000 / 1000 SIG BOLUS ONE Rx#:[id number] Other: # Voids 1 Date of Last Bowel Movement 09/24/18 Weight On Admission 57.606 kg - Constitutional no acute distress - Routine HEENT Exam Eye: Present: PERRL ENT: Present: mucous membranes moist - Routine Neck Exam Present: supple - Routine Respiratory Exam Present: CTA bilaterally - Routine Cardiovascular Exam Present: S1, S2 - Routine Abdominal Exam Present: soft, normoactive bowel sounds - Routine Skin Exam Present: dry, warm Comments: S/S to left neck w/o reddness or drainage - Routine Neurological Exam Present: alert, oriented X3 Results - Labs Result diagrams: 06/14/18 19:32 06/14/18 19:32 Abnormal lab results 06/14/18 06/14/18 06/14/18 Range/Units 19:32 19:32 19:32 WBC 15.7 H (4.0-11.0) th/mm3 MCHC 31.7 L (32.0-36.0) % Plt Count 720 H (150-450) th/mm3 Neut % (Auto) 77.8 H (16.0-70.0) % Neut # (Auto) 12.2 H (1.8-7.7) th/mm3 [place] # (Auto) 1.1 H (0.0-0.9) th/mm3 Eos # (Auto) 0.5 H (0.0-0.4) th/mm3 APTT 30.6 H (24.3-30.1) sec Estimated GFR 61 L (>89) mL/min Albumin 2.9 L (3.4-5.0) g/dL Short CBC 06/14/18 Range/Units 19:32 WBC 15.7 H (4.0-11.0) th/mm3 Hgb 11.6 (11.6-15.3) gm/dL Hct 36.7 (35.0-46.0) % Plt Count 720 H (150-450) th/mm3 BMP 06/14/18 19:32 Sodium 139 Potassium 3.8 Chloride 103 Carbon Dioxide 30.7 BUN 14 Creatinine 0.88 Calcium 8.8 Liver Function 06/14/18 Range/Units 19:32 Total Bilirubin 0.4 (0.2-1.0) mg/dL AST 30 (15-37) U/L ALT 38 (10-53) U/L Alkaline Phosphatase 89 (45-117) U/L Albumin 2.9 L (3.4-5.0) g/dL Urine 06/14/18 Range/Units 20:33 Urine Color Straw (Yellw/Straw) Urine Clarity Clear (Clear) Urine pH 6.0 (5.0-8.5) Ur Specific [place] 1.004 (1.002-1.035) Urine Protein Negative (Neg-Trace) mg/dL Urine Glucose (UA) Negative (Negative) mg/dL - Imaging Impressions Head CT 06/14/18 19:13 CONCLUSION: 1. No acute findings in the brain. 2. Diffuse ischemic change and moderate atrophy, stable from July 2017. . Chest X-Ray 06/14/18 19:14 CONCLUSION: Right infrahilar infiltrate. Head CTA 06/14/18 19:14 CONCLUSION: 1. Negative CTA of [place]. Neck CTA 06/14/18 19:14 CONCLUSION: 1. Expected postsurgical findings at site of right carotid endarterectomy. 2. No evidence of luminal narrowing or dissection. Caprini VTE Risk Assessment Caprini VTE Risk Assessment: Moderate/High Risk (score >= 2) (ON eliquis asa) Caprini Risk Assessment Model: Point Value = 1 Point Value = 2 Point Value = 3 Point Value = 5 Age 41-60 Minor surgery BMI > 25 kg/m2 Swollen legs Varicose veins or History of unexplained or recurrent spontaneous Oral contraceptives or hormone replacement Sepsis (< 1 month) Serious lung disease, including pneumonia (< 1 month) Abnormal pulmonary function Acute myocardial infarction Congestive heart failure (< 1 month) History of inflammatory bowel disease Medical patient at bed rest Age 61-74 Arthroscopic surgery Major open surgery (> 45 min) Laparoscopic surgery (> 45 min) Malignancy Confined to bed (> 72 hours) Immobilizing plaster cast Central venous access Age >= 75 History of VTE Family history of VTE Factor V Leiden Prothrombin [id number] Lupus anticoagulant Anticardiolipin antibodies Elevated serum homocysteine Heparin-induced thrombocytopenia Other congenital or acquired thrombophilia Stroke (< 1 month) Elective arthroplasty Hip, pelvis, or leg fracture Acute spinal cord injury (< 1 month) Prophylaxis Regimen: Total Risk Factor Score Risk Level Prophylaxis Regimen 0-1 Low Early ambulation 2 Moderate Order ONE of the following: *Sequential Compression Device (SCD) *Heparin 5000 units SQ BID 3-4 Higher Order ONE of the following medications: *Heparin 5000 units SQ TID *Enoxaparin/Lovenox 40 mg SQ daily (WT < 150 kg, CrCl > 30 mL/min) *Enoxaparin/Lovenox 30 mg SQ daily (WT < 150 kg, CrCl > 10-29 mL/min) *Enoxaparin/Lovenox 30 mg SQ BID (WT < 150 kg, CrCl > 30 mL/min) AND/OR *Sequential Compression Device (SCD) 5 or more Highest Order ONE of the following medications: *Heparin 5000 units SQ TID (Preferred with Epidurals) *Enoxaparin/Lovenox 40 mg SQ daily (WT < 150 kg, CrCl > 30 mL/min) *Enoxaparin/Lovenox 30 mg SQ daily (WT < 150 kg, CrCl > 10-29 mL/min) *Enoxaparin/Lovenox 30 mg SQ BID (WT < 150 kg, CrCl > 30 mL/min) AND *Sequential Compression Device (SCD) Assessment and Plan - Assessment (1) Hospital acquired PNA Code(s): J18.9 - Pneumonia, unspecified organism Status: Acute Plan: Iv ceftipime, Bronchodilators, Oxygen supplement, Swallow eval (2) Brain TIA Code(s): G45.9 - Transient cerebral ischemic attack, unspecified Status: Acute Plan: Neurology consulted, CT CTA of head and neck unremarkable EEG Mri pending She is in eliquis, asa (3) Hypertension Code(s): I10 - Essential (primary) hypertension Status: Acute Plan: Cont home medication, titrate as needed (4) Afib Code(s): I48.91 - Unspecified atrial fibrillation Status: Acute Plan: Rate controlled, amiodarone Eliquis bid - Assessment and Plan DC when neuro work up completed. H&P: Quality - VTE Deep Vein Thrombosis/Pulmonary Embolism Present on Admission: No (2) Brain TIA Qualifiers: Transient cerebral ischemia type: unspecified Qualified Code(s): G45.9 - Transient cerebral ischemic attack, unspecified
--- NOTE | 2018-06-15 13:52 | MR ---
EXAM DATE: 06/15/2018 1:23 PM EDT AGE/SEX: 88 years / Female INDICATIONS: CVA. CLINICAL DATA: This is the patient's initial encounter. Patient reports that signs and symptoms have been present for 2 days and indicates a pain score of 4/10. MEDICAL/SURGICAL HISTORY: Hypertension. Diabetes mellitus type II. section. [employer] loop recorder, Right shoulder sx, carpal tunnel sx, Carotid artery sx. COMPARISON: [place], MRI BRAIN W & W/O CONTRAST, 08/21/2017. . TECHNIQUE: Multiplanar, multisequence examination of the brain was performed without contrast. FINDINGS: Cerebrum: The ventricles are normal for age. There is bilateral cortical atrophy. No evidence of mid line shift, mass lesion, hemorrhage. There appears to be a new small focal area of acute infarction i nvolving the right occipital lobe. No extraaxial fluid collections are seen. The pituitary gland an d suprasellar cistern are normal in configuration. White Matter: Stable moderate chronic white matter changes are seen throughout the white matter trac ts. Posterior Fossa: The cerebellum and brainstem are intact. The 4th ventricle is midline. The cerebel lopontine angle is unremarkable. The cerebellar tonsils are normal in position. Diffusion Imaging: New Small focal area of restricted diffusion is seen in the right occipital lobe consistent with a focal acute infarction. The region measures approximately 2.2 cm. Extracranial: The visualized portions of the orbits and paranasal sinuses are unremarkable. CONCLUSION: 1. Compared to the prior examination, there is a new small area of restricted diffusion in the right occipital lobe measuring approximately 2.2 cm consistent with a focal acute infarction. 2. Stable bilateral cortical atrophy and moderate chronic white matter changes. Electronically signed by: Keyur De Santiago MD 06/15/2018 1:50 PM EDT
--- NOTE | 2018-06-15 17:46 | ECG ---
Date Performed: 06/14/2018 Time Performed: 20:31:46 PTAGE: 88 years EKG: Sinus rhythm MARKED LEFT AXIS DEVIATION Left anterior fascicular block ABNORMAL ECG PREVIOUS TRACING : 08/20/2017 11.18 DOCTOR: Reggie Blank Interpretating Date/Time 06/15/2018 18:03:44
[2018-06-15] MEDS: Amiodarone 200 MG Tablet PO SCH (20:49)
[2018-06-16] MEDS: Levothyroxine 50 MCG Tablet PO SCH (06:05)
[2018-06-16] MEDS: Isosorbide Mononitrate 30 MG ER 24HR Tablet (Imdur) PO SCH (06:05)
--- NOTE | 2018-06-16 08:43 | P.PNFP ---
Subjective Interval history: slept OK denies cp,complains of being winded family at bedside Results - Labs Result diagrams: 06/14/18 19:32 06/14/18 19:32 - Imaging Impressions Head MRI 06/15/18 00:00 CONCLUSION: 1. Compared to the prior examination, there is a new small area of restricted diffusion in the right occipital lobe measuring approximately 2.2 cm consistent with a focal acute infarction. 2. Stable bilateral cortical atrophy and moderate chronic white matter changes. Physical Exam Vital signs: Vital Signs 06/15/18 11:38 06/15/18 16:00 06/15/18 20:00 Temperature 98.7 F 97.9 F 97.7 F Pulse Rate 68 67 68 Respiratory Rate 16 18 17 Blood Pressure 166/75 H 173/79 H 151/68 H Pulse Oximetry 93 L 93 L 94 L 06/16/18 00:00 06/16/18 03:52 06/16/18 07:56 Temperature 97.7 F 97.8 F 97.6 F Pulse Rate 66 57 L 61 Respiratory Rate 17 17 18 Blood Pressure 183/81 H 168/80 H 190/80 H Pulse Oximetry 95 94 L 95 Intake & Output 06/15/18 06/16/18 06/16/18 18:59 06:59 18:59 Weight 57.606 kg Other: # Voids 2 2 Date of Last Bowel Movement 06/15/18 - Constitutional no acute distress - Routine HEENT Exam Eye: Present: PERRL ENT: Present: mucous membranes moist - Routine Respiratory Exam Present: CTA bilaterally, diminished air movement Comments: diminished at base - Routine Cardiovascular Exam Present: S1, S2 - Routine Abdominal Exam Present: soft, normoactive bowel sounds - Routine Extremities Exam Present: pulses intact - Routine Neurological Exam Present: alert, oriented X3 - Routine Psychiatric Exam Present: cooperative Assessment and Plan - Assessment (1) Hospital acquired PNA Code(s): J18.9 - Pneumonia, unspecified organism Status: Acute Plan: Iv ceftipime, Bronchodilators, Oxygen supplement, Swallow eval passed (2) Brain TIA Code(s): G45.9 - Transient cerebral ischemic attack, unspecified Status: Acute Plan: Neurology consulted, CT CTA of head and neck unremarkable EEG Mri shows right occipital lobe measuring approximately 2.2 cm consistent with a focal acute infarction. She is in eliquis, asa (3) Hypertension Code(s): I10 - Essential (primary) hypertension Status: Acute Plan: Cont home medication, titrate as needed add norvasc B/P running in 180's systolic (4) Afib Code(s): I48.91 - Unspecified atrial fibrillation Status: Acute Plan: Rate controlled, amiodarone Eliquis bid - Assessment and Plan DC when neuro work up completed. 06/15/18- Pulmonary following for PNA, she is on Cefixime, sat's maintain on rrom , air, bronchodilators, keep sat's >92%. Neuro on case, for new acute infarct. No noted deficits, PT/OT eval today. B/P on higher side, will add norvasc, cont to monitor. DC when cleared by Neuro, (2) Brain TIA Qualifiers: Transient cerebral ischemia type: unspecified Qualified Code(s): G45.9 - Transient cerebral ischemic attack, unspecified
[2018-06-16] MEDS ORDERED: amLODIPine 5 MG Tablet PO SCH (09:00)
[2018-06-16] MEDS: Allopurinol 100 MG Tablet PO SCH ×2 (09:15→21:09)
[2018-06-16] MEDS: Multivitamin/Minerals Therapeutic Tablet PO SCH (09:19)
[2018-06-16 10:34] LABS: Hematocrit 35.6 % (35.0-46.0); Hemoglobin 11.9 gm/dL (11.6-15.3); Mean Corpuscular HGB Conc 33.3 % (32.0-36.0); Mean Corpuscular Hemoglobin 30.2 pg (27.0-34.0); Mean Corpuscular Volume 90.6 fL (80.0-100.0); Mean Platelet Volume 8.8 fL (7.0-11.0); Platelet Count 759 th/mm3 (150-450); Red Blood Count 3.93 mil/mm3 (4.00-5.30); Red Cell Distribution Width 16.7 % (11.6-17.2); White Blood Count 15.1 th/mm3 (4.0-11.0)
[2018-06-16] MEDS ORDERED: amLODIPine 5 MG Tablet PO ONE (12:15)
--- NOTE | 2018-06-16 12:37 | MG ---
cc: William Timmons MD An 88-year-old woman. Hyperventilation not performed. She has a 2 cm focal infarct, some white matter changes, feeling tired, atrial fibrillation, Eliquis. Recording shows some right hemisphere 5 Hz slowing on a background of 8 Hz, 60 microvolt posterior rhythm. She is noted to be asleep with diffuse delta slowing and some K complexes as she reaches stage II sleep. Photic stimulation is performed without significant posterior driving. No epileptiform or seizure activity is seen. IMPRESSION: There is some right hemisphere slowing superimposed on some sleep, which could be from an old stroke on the right hemisphere. Some normal sleep is seen. No epileptiform or seizure activity is noted, however. A right hemisphere lesion should be ruled out. William Timmons MD DJM/es , 12:23 PM , 12:29 PM
--- NOTE | 2018-06-16 16:31 | P.PN ---
Subjective Interval history: No new issues reported Physical Exam Vital signs: Vital Signs 06/15/18 20:00 06/16/18 00:00 06/16/18 03:52 Temperature 97.7 F 97.7 F 97.8 F Pulse Rate 68 66 57 L Respiratory Rate 17 17 17 Blood Pressure 151/68 H 183/81 H 168/80 H Pulse Oximetry 94 L 95 94 L 06/16/18 07:56 06/16/18 08:36 06/16/18 12:41 Temperature 97.6 F 98.1 F Pulse Rate 61 58 L 61 Respiratory Rate 18 16 16 Blood Pressure 190/80 H 184/78 H Pulse Oximetry 95 93 L Intake & Output 06/15/18 06/16/18 06/16/18 18:59 06:59 18:59 Intake Total 200 / 200 Balance 200 / 200 Weight 57.606 kg Intake: IV 200 / 200 Maxipime Inj 1,000 MG In NS Inj 200 / 200 100 ML @ 200 mls/hr IV.SIG Q12H [facility] Rx#:[id number] Other: # Voids 2 2 Date of Last Bowel Movement 06/15/18 Narrative: neck right cea clean no oozing slight pain heart rrr awake alert fluent perrla decreased right nlf motor intact Results - Labs CBC & Chem 7: 06/16/18 09:55 06/14/18 19:32 Laboratory Results - last 24 hr 06/16/18 09:55 WBC 15.1 H RBC 3.93 L Hgb 11.9 Hct 35.6 MCV 90.6 MCH 30.2 MCHC 33.3 RDW 16.7 Plt Count 759 H MPV 8.8 Microbiology 06/14/18 22:00 Blood - Peripheral Aerobic Blood Culture - Preliminary No growth in 2 days 06/14/18 22:00 Blood - Peripheral Anaerobic Blood Culture - Preliminary No growth in 2 days 06/14/18 21:55 Blood - Peripheral Aerobic Blood Culture - Preliminary No growth in 2 days 06/14/18 21:55 Blood - Peripheral Anaerobic Blood Culture - Preliminary No growth in 2 days - Imaging mri c/w right occipital infarct cta cow neg carotid right cea changes. Assessment and Plan - Assessment (1) CVA (cerebral vascular accident) Code(s): I63.9 - Cerebral infarction, unspecified Status: Acute - Plan asa and eliquis?if should increase dose eliquis but gfr not normal or change to another agent-defer to cardiology can go home per neurology and f/u outpt in 2-3 weeks.
[2018-06-16 16:34] LABS: Hemoglobin A1c 6.3 % (4.3-6.0)
--- NOTE | 2018-06-16 17:37 | P.PNPL ---
Subjective Interval history: 88 YOWF with Recent Rt CEA with new CVA, Pn Breqathig much better no Fever No Cough or sp Son and [id number] at BS Physical Exam Vital signs: Vital Signs 06/15/18 20:00 06/16/18 00:00 06/16/18 03:52 Temperature 97.7 F 97.7 F 97.8 F Pulse Rate 68 66 57 L Respiratory Rate 17 17 17 Blood Pressure 151/68 H 183/81 H 168/80 H Pulse Oximetry 94 L 95 94 L 06/16/18 07:56 06/16/18 08:36 06/16/18 12:41 Temperature 97.6 F 98.1 F Pulse Rate 61 58 L 61 Respiratory Rate 18 16 16 Blood Pressure 190/80 H 184/78 H Pulse Oximetry 95 93 L 06/16/18 16:24 Temperature 97.9 F Pulse Rate 71 Respiratory Rate 20 Blood Pressure 163/68 H Pulse Oximetry 93 L Intake & Output 06/15/18 06/16/18 06/16/18 18:59 06:59 18:59 Intake Total 200 / 200 Balance 200 / 200 Weight 57.606 kg Intake: IV 200 / 200 Maxipime Inj 1,000 MG In NS Inj 200 / 200 100 ML @ 200 mls/hr IV.SIG Q12H TRISHA Rx#:[id number] Other: # Voids 2 2 Date of Last Bowel Movement 06/15/18 GENERAL: Elderly WF, NAD SKIN: Warm and dry. HEAD: Normocephalic. EYES: No scleral icterus. No injection or drainage. NECK: Supple, trachea midline. No JVD or lymphadenopathy. CARDIOVASCULAR: Regular rate and rhythm without murmurs, gallops, or rubs. RESPIRATORY: Breath sounds equal bilaterally. No accessory muscle use. GASTROINTESTINAL: Abdomen soft, non-tender, nondistended. MUSCULOSKELETAL: No cyanosis, or edema. BACK: Nontender without obvious deformity. No CVA tenderness. Assessment and Plan - Plan IMPRESSION: 1. Right basal infiltrate. 2. Possible transient ischemic attack. 3. Recent right carotid endarterectomy. 4. Atrial fibrillation. 5. Hypertension. PLAN: Cont Abx Eliquis and Asp per Neurology Stable on RA Dw pt and her son at .
[2018-06-16] MEDS: Amiodarone 200 MG Tablet PO SCH (21:09)
[2018-06-17 05:23] LABS: Hematocrit 35.3 % (35.0-46.0); Hemoglobin 11.7 gm/dL (11.6-15.3); Mean Corpuscular HGB Conc 33.2 % (32.0-36.0); Mean Corpuscular Hemoglobin 30.1 pg (27.0-34.0); Mean Corpuscular Volume 90.8 fL (80.0-100.0); Mean Platelet Volume 8.7 fL (7.0-11.0); Platelet Count 688 th/mm3 (150-450); Red Blood Count 3.89 mil/mm3 (4.00-5.30); Red Cell Distribution Width 16.5 % (11.6-17.2); White Blood Count 15.4 th/mm3 (4.0-11.0)
[2018-06-17 05:47] LABS: Calcium 8.9 mg/dL (8.5-10.1); Carbon Dioxide 32.7 meq/L (21.0-32.0); Potassium 3.5 meq/L (3.5-5.1)
[2018-06-17] MEDS: Isosorbide Mononitrate 30 MG ER 24HR Tablet (Imdur) PO SCH (06:00)
[2018-06-17] MEDS: Levothyroxine 50 MCG Tablet PO SCH (06:00)
[2018-06-17] MEDS ORDERED: amLODIPine 10 MG Tablet PO SCH (09:00)
[2018-06-17] MEDS: Allopurinol 100 MG Tablet PO SCH (09:52)
[2018-06-17] MEDS: Multivitamin/Minerals Therapeutic Tablet PO SCH (09:52)
[2018-06-17 11:48] VITALS: BP 172/69; PULSE 62; RESP 16; TEMP 97.7; O2SAT 93
--- NOTE | 2018-06-24 13:53 | P.CONCA ---
History of Present Illness Service: Cardiology Consult date: 06/17/18 Requesting Physician: Darron Muller Reason for Consult: Recent infarct, needs coags Primary Care Provider: Darron Muller DO Family Provider: Darron Muller DO History of Present Illness: This is a very pleasant 88-year-old female known to Dr. Preston with a history of atrial fibrillation, hypertension, [place], hyperlipidemia, hypothyroidism, carotid artery stenosis and on 06-10-18 she had a right carotid endarterectomy. She presented to the emergency department on 06-14-18 with complaints of feeling tired, tingling in both her arms and feet and difficulty reading due to changes in her vision. All the previous mentioned symptoms have resolved. Currently she denies any chest pain, pressure, palpitations, dizziness, edema or shortness of breath. Review of Systems All other systems reviewed negative except as stated in HPI [facility] - History History Provided By: Patient - Medical History Medical History: Medical History (Last Reviewed 06/17/18 @ 08:55 by Shelbi Reeves, [employer]) Atrial fibrillation DVT (deep venous thrombosis) Hard of hearing Heart attack High cholesterol Hypertension Thyroid disease - Surgical History Surgical History: Surgical History (Last Reviewed 06/16/18 @ 09:33 by Julia Mann) History of back surgery (Acute) H/O heart artery stent H/O shoulder surgery History of loop recorder - Tobacco History Second Hand Smoke Exposure: No Smoking Status: Never smoker - Alcohol History How Often Do You Have a Drink Containing Alcohol: 2 to 4 times a month - Substance Use History Substance History: No History of Abuse - Travel History Recent Travel in the [place] Within the Last 8 Weeks: No Recent Travel Out of the Country Within the Last 8 Weeks: No - Immunization History Tetanus Immunization: >5 Years Medications and Allergies Allergies Allergy/AdvReac Type Severity Reaction Status Date / Time Horse/Equine Containing Allergy Severe HIVES Verified 06/14/18 18:48 Products Home Medications Medication Instructions Recorded Confirmed Type albuterol sulfate [Ventolin HFA] 1 puff INHALATION Q4-6H PRN 04/27/18 06/14/18 History allopurinol 100 mg PO BID 04/27/18 06/14/18 History amiodarone 200 mg PO HS 04/27/18 06/14/18 History apixaban [Eliquis] 2.5 mg PO BID 04/27/18 06/14/18 History cholecalciferol (vitamin D3) 1,000 units PO DAILY 04/27/18 06/14/18 History [Vitamin D3] enalapril maleate 5 mg PO BID 04/27/18 06/14/18 History hydrochlorothiazide 12.5 mg PO DAILY 04/27/18 06/14/18 History levothyroxine 50 mcg PO DAILY 04/27/18 06/14/18 History pravastatin 80 mg PO DAILY 04/27/18 06/14/18 History aspirin [Adult Low Dose Aspirin] 81 mg PO DAILY 06/09/18 06/14/18 History isosorbide mononitrate 30 mg PO DAILY 06/09/18 06/14/18 History qasfhujs-ust-LB-lycopen-lutein 1 tab PO DAILY 06/09/18 06/14/18 History [Centrum Silver] acetaminophen-codeine 1 tab PO Q4-6H PRN 06/14/18 06/14/18 History [Tylenol-Codeine #3] Active Medications: Active Medications Acetaminophen/Codeine Phosphate (Tylenol W/Cod #3) 1 tab PO Q4H PRN PRN Reason: PAIN 1-10 Albuterol (Ventolin Hfa Inh) 1 puff INH Q4H PRN PRN Reason: Respiratory Distress Albuterol (Duoneb Neb (Prn)) 1 ampul NEB Q6HR NEB PRN PRN Reason: SHORTNESS OF BREATH Allopurinol (Zyloprim) 100 mg PO BID [facility] Last Admin: 06/17/18 09:52 Dose: 100 mg Amiodarone HCl (Cordarone) 200 mg PO [facility] Last Admin: 06/16/18 21:09 Dose: 200 mg Amlodipine Besylate (Norvasc) 10 mg PO DAILY [facility] Last Admin: 06/17/18 09:52 Dose: 10 mg Apixaban (Eliquis) 2.5 mg PO BID [facility] Last Admin: 06/17/18 09:52 Dose: 2.5 mg Aspirin (Ecotrin) 81 mg PO DAILY [facility] Last Admin: 06/17/18 09:52 Dose: 81 mg Enalapril Maleate (Vasotec) 5 mg PO BID [facility] Last Admin: 06/17/18 09:53 Dose: 5 mg Hydrochlorothiazide (Microzide) 12.5 mg PO DAILY [facility] Last Admin: 06/17/18 09:52 Dose: 12.5 mg Cefepime HCl 1,000 mg/ Sodium (Chloride) 100 mls @ 200 mls/hr IV.SIG Q12H [facility] Last Infusion: 06/17/18 10:30 Dose: Infused Isosorbide Mononitrate (Imdur) 30 mg PO DAILY@0700 [facility] Last Admin: 06/17/18 06:00 Dose: 30 mg Levothyroxine Sodium (Synthroid) 50 mcg PO DAILY@0700 [facility] Last Admin: 06/17/18 06:00 Dose: 50 mcg Multivitamins/Minerals (Theragran-M) 1 tab PO DAILY [facility] Last Admin: 06/17/18 09:52 Dose: 1 tab Vitamin D (Vitamin D3) 1,000 unit PO DAILY [facility] Last Admin: 06/17/18 09:52 Dose: 1,000 unit Exam - Constitutional no acute distress - Routine HEENT Exam Head: Present: normocephalic Eye: Present: PERRL ENT: Present: mucous membranes moist - Routine Neck Exam Present: supple Comments: Surgical incision on the right lateral neck with Steri-Strips status post right carotid endarterectomy - Routine Respiratory Exam Present: CTA bilaterally - Routine Cardiovascular Exam Present: S1, S2 - Routine Abdominal Exam Present: normoactive bowel sounds - Routine Extremities Exam Present: full ROM, pulses intact, normal capillary refill. Absent: cyanosis, clubbing, edema - Routine Skin Exam Present: intact - Routine Neurological Exam Present: oriented X3 Results 06/17/18 04:56 06/17/18 04:56 Assessment and Plan - Assessment (1) Postop carotid endarterectomy surveillance, encounter for Code(s): Z48.812 - Encounter for surgical aftercare following surgery on the circulatory system Status: Acute (2) Hypertension Code(s): I10 - Essential (primary) hypertension Status: Acute (3) Hospital acquired PNA Code(s): J18.9 - Pneumonia, unspecified organism Status: Acute (4) Brain TIA Code(s): G45.9 - Transient cerebral ischemic attack, unspecified Status: Acute (5) Afib Code(s): I48.91 - Unspecified atrial fibrillation Status: Acute (6) CVA (cerebral vascular accident) Code(s): I63.9 - Cerebral infarction, unspecified Status: Acute - Plan Patient currently on Eliquis and aspirin for anticoagulation. Patient currently sinus rhythm on monitor, continue with current cardiac treatment plan. Patient here for TIA/CVA symptoms, neurology evaluation in progress. Patient is cleared for discharge from cardiac standpoint. We will follow-up with patient in office post discharge. Patient was seen and evaluated by Dr. Preston who participated in care, management and decision-making. - Attending Attestation Patient seen and examined. I reviewed and agree with the evaluation and plan as presented. DC home as planned. Will schedule outpatient followup. (4) Brain TIA Qualifiers: Transient cerebral ischemia type: unspecified Qualified Code(s): G45.9 - Transient cerebral ischemic attack, unspecified
--- NOTE | 2018-06-30 09:52 | P.DS ---
Date of admission: 06/14/18 22:57 Primary care physician: Darron Muller DO Brief History from admission: HPI Narrative: Patient is a 88-year-old female with a history of A. fib on , HTN, [place], HLD and hypothyroidism status post right CEA past presents to ER for complaints of tired, and tingling in b/l arms and legs. family reported that she clay trouble reading, and turned facet on and forgot to turn off, all out of behavior for her. She is found to have elevated wbc 15.7, with right perihilar pneumonia seen on chest x-ray. CT brain was negative for acute bleed. CT angio of neck and head were also unremarkable. . DS: Diagnosis - Discharge Diagnosis (1) Hospital acquired PNA Status: Acute (2) Brain TIA Status: Acute (3) Hypertension Status: Acute (4) Afib Status: Acute DS: Summary Hospital Course: admitted for TIA/CVA, hx of recent right endarterectomy on asa. CT 0n negative for acute findings. Neuro consulted MRI ordered 06/15 found to have new right occipital lobe infarct. Cxr show Right infrahilar infiltrate. Pulmonary consulted treated with Rocephin , bronchodilators. Remained on room air. sent home on Po Ceftin Cardiology consulted for anticoagulation recommendation. Evaluated by PT cleared for [facility] - Time Spent with Patient Total time spent providing and/or coordinating discharge services: 30 Less than 30 minutes - Quality: AMI Clinical Trial Participant: No - Quality: Stroke Symptom Onset Unknown: No - Quality: VTE Is this test being ordered to rule out VTE?: No Deep Vein Thrombosis/Pulmonary Embolism Present on Admission: No Exam - Constitutional no acute distress - Routine HEENT Exam Eye: Present: PERRL ENT: Present: mucous membranes moist - Routine Neck Exam Present: supple - Routine Respiratory Exam Present: CTA bilaterally - Routine Cardiovascular Exam Present: S1, S2 - Routine Abdominal Exam Present: soft, normoactive bowel sounds - Routine Neurological Exam Present: moving all extremities Results Procedures completed during hospitalization: na - Impressions ITS Impressions Head CT 06/14/18 19:13 CONCLUSION: 1. No acute findings in the brain. 2. Diffuse ischemic change and moderate atrophy, stable from July 2017. . Chest X-Ray 06/14/18 19:14 CONCLUSION: Right infrahilar infiltrate. Head CTA 06/14/18 19:14 CONCLUSION: 1. Negative CTA of the [place]. Neck CTA 06/14/18 19:14 CONCLUSION: 1. Expected postsurgical findings at site of right carotid endarterectomy. 2. No evidence of luminal narrowing or dissection. Head MRI 06/15/18 00:00 CONCLUSION: 1. Compared to the prior examination, there is a new small area of restricted diffusion in the right occipital lobe measuring approximately 2.2 cm consistent with a focal acute infarction. 2. Stable bilateral cortical atrophy and moderate chronic white matter changes. Discharge Plan - Discharge Disposition Patient Disposition: 01 Discharge Home - Discharge Condition Condition: Good - Discharge Order Discharge Orders: Discharge Order (Routine); Ordered 06/17/18 Ordered By: Maura Mosley - Discharge Details Anticipated Discharge Date: 06/17/18 Discharge Comment: Ceftin 500 mg bid x 10 days will be called into patient pharmacy - Physicians Team Primary Care Provider: Darron Muller Attending Provider: Darron Muller Other Providers: Robert Soriano MD ; Betty Esposito MD ; Fermín Preston MD
== END 2018-06-17 14:30 | disposition home or self-care (01) ==
LOC: NEPC 18:33 → NEDA 22:57 → NEPGCP 06-15 02:19 → NEPFCDU 06-15 02:43
PROVIDERS: ADMIT Family Medicine; ATTEND Family Medicine